=== PATIENT | male | born 1935 ===

== ENCOUNTER 2018-08-11 13:46 | Inpatient (IN) | payer MEDICARE ==
[~2018-08-11] VITALS: Ht 157.5 cm; Wt 80.8 kg
[2018-08-11 18:15] VITALS: BP 173/106
[2018-08-11] MEDS ORDERED: ACETAMINOPHEN 325 MG TABLET PO PRN (18:30)
[2018-08-11] MEDS ORDERED: MAG HYDROX/AL HYDROX/SIMETH 30 ML ORAL.SUSP PO PRN (18:30)
[2018-08-11] MEDS ORDERED: METHYL SALICYLATE/MENTHOL TOPICAL OINTMENT 29GM TUBE. TP PRN (18:30)
[2018-08-11] MEDS ORDERED: MAGNESIUM HYDROXIDE 2,400 MG/30 ML ORAL.SUSP. PO PRN (18:30)
--- NOTE | 2018-08-11 18:45 | NUR ---
Admission Note with Justification for Admission to [facility] Patient admitted to [facility] for protective oversight for emergency stabilization of acute psychiatric crisis. Pt admitted from: [facility] where he had been hospitalized for acute respiratory distress. Mode of arrival: Secure Transport Accompanied By: [facility] Staff, XIN Tucker and CAMILLE Vargas who went down and got patietn out of car and accompanied patient to unit. Precipitating behaviors that initiated intake and admission: Patient has had recent behavioral changes, was hospitalized at [facility] for acute respiratory distress. He has recently been combative, agitated and has had increased confusion. His brother has recently . Description of failure of out patient attempts at stabilization in previous setting list behavior and medication trials: Hospitalized and they gave him PRN ativan IM. Behaviors and assessment findings upon admission: Patient is very sedated upon arrival. Unable to sit upright in wheelchair. Staff down to parking lot to retrieve patient from secure transport vehicle. Patient not oriented, drowsy and fell asleep. His vital signs were high upon arrival and rechecked 30 minutes later, they remained high. He has extensive bruising to both forearms. Areas photographed. Lung sounds are wheezy, coarse. He has dried secretions under nose and drool around mouth. It was reported that he had been given PRN ativan 0.5mg IM at [facility] in preparation for trip. Belongings inventoried, photographs taken. Patient wears glasses and has a cochlear implant. Skin is good except for bruising previously described and yeasty area in his right groin area. Patient laying down in bed, side rails up, bed alarm on and head elevated. Dinner tray is in warmer cart, it was reported that he hadn't eaten since lunch. Plan: Admit for protective oversight for adjustment and stabilization of medications, behaviors and mood. Intense treatment regimen including groups, medication adjustments, therapy, consistent regimen for ADL's, self care, and sleep hygiene. Daily monitoring by Inpatient staff, Psychiatry, and Medical Physician. Addendum: 08/12/18 at 0812 by LOI HAWK RN Correction: patient was given PRN Ativan 1mg IM at [facility] prior to transport.
[2018-08-11 19:00] VITALS: BP 165/113
[2018-08-11] MEDS ORDERED: TRAM50TA PO (19:54)
[2018-08-11] MEDS ORDERED: SIMV20TA3 PO (19:54)
[2018-08-11] MEDS ORDERED: NYST15CR TP (19:54)
[2018-08-11] MEDS ORDERED: FURO20TA3 PO (19:54)
[2018-08-11] MEDS ORDERED: LEVO200T5 PO (19:54)
[2018-08-11] MEDS ORDERED: ALBU2.5V5 NEB (19:54)
[2018-08-11] MEDS ORDERED: METH2.5T PO (19:54)
[2018-08-11] MEDS ORDERED: PRED20TA PO (19:54)
[2018-08-11] MEDS ORDERED: METO50TA6 PO (19:54)
[2018-08-11] MEDS ORDERED: LOSA50TA7 PO (19:54)
[2018-08-11] MEDS ORDERED: UMEC62.5 IH (19:54)
[2018-08-11] MEDS ORDERED: ARFO15VI IH (19:54)
[2018-08-11] MEDS ORDERED: PRED-220 PO (19:54)
[2018-08-11] MEDS ORDERED: ALBU18HF IH (19:54)
[2018-08-11] MEDS ORDERED: HYDR25TA9 PO (19:54)
[2018-08-11] MEDS ORDERED: OXYB5TAB7 PO (19:54)
[2018-08-11] MEDS ORDERED: traMADol 50 MG TABLET PO PRN (20:00)
[2018-08-11 20:52] LABS: BASO # 0.1 x10^3/uL (0.0-0.2); BASO % 1 % (0-3); EOS % 0 % (0-3); HEMATOCRIT 42.9 % (36.0-47.0); HEMOGLOBIN 14.3 g/dL (12.0-15.5); LYMPH # 0.7 x10^3/uL (1.0-4.8); LYMPH % 6 % (24-48); MEAN CORPUSCULAR HEMOGLOBIN 31 pg (25-35); MEAN CORPUSCULAR HGB CONC 33 g/dL (31-37); MEAN CORPUSCULAR VOLUME 92 fL (79-100); MONO # 0.6 x10^3/uL (0.0-1.1); MONO % 6 % (0-9); NEUT # 9.4 x10^3uL (1.8-7.7); NEUT % 87 % (31-73); PLATELET COUNT 285 x10^3/uL (140-400); RED BLOOD COUNT 4.68 x10^6/uL (3.50-5.40); WHITE BLOOD COUNT 10.9 x10^3/uL (4.0-11.0)
[2018-08-11] MEDS: LOSARTAN 50 MG TABLET. PO SCH (20:52)
[2018-08-11] MEDS: METOPROLOL TART IMMED RELEASE 50 MG TABLET PO SCH (20:52)
[2018-08-11] MEDS: SIMVASTATIN 20 MG TABLET PO SCH (20:52)
[2018-08-11] MEDS ORDERED: NON FORMULARY ITEM (Arformoterol Tartrate (Brovana) 15 MCG) IH SCH (21:00)
[2018-08-11 21:05] LABS: ALBUMIN/GLOBULIN RATIO 0.7 (1.0-1.7); CALCIUM 9.1 mg/dL (8.5-10.1); CREATININE 1.4 mg/dL (0.6-1.0); MAGNESIUM 2.1 mg/dL (1.8-2.4); POTASSIUM 4.2 mmol/L (3.5-5.1); TOTAL BILIRUBIN 0.6 mg/dL (0.2-1.0); TOTAL PROTEIN 7.4 g/dL (6.4-8.2)
--- NOTE | 2018-08-11 21:24 | PDOC ---
Exam Note: Cr Note: Late entry for DOS 08/10/2018. Please also refer to the separate dictated note~ for this date of service dictated separately.~Patient seen individually. Discussed the patient with Nursing staff reviewed the chart.~Reviewed interim history and current functioning. Reviewed vital signs,~Labs/ Radiology~and current medications noted below. Continue current treatment with the changes noted in the dictated addendum note Assessment: Vital Signs: VS - Last 72 Hours, by Label Date Time Temp Pulse Resp B/P (MAP) Pulse Ox O2 Delivery O2 Flow Rate FiO2 08/11/18 20:52 116 165/113 08/11/18 20:52 116 165/113 08/11/18 19:00 98.3 116 16 165/113 (130) 94 Room Air 08/11/18 18:15 98.3 100 16 173/106 (128) 91 Room Air Vital Signs Date Time Temp Pulse Resp B/P (MAP) Pulse Ox O2 Delivery O2 Flow Rate FiO2 08/11/18 20:52 116 165/113 08/11/18 19:00 98.3 16 94 Room Air Labs: Laboratory Tests Test 08/11/18 20:40 White Blood Count 10.9 x10^3/uL (4.0-11.0) Red Blood Count 4.68 x10^6/uL (3.50-5.40) Hemoglobin 14.3 g/dL (12.0-15.5) Hematocrit 42.9 % (36.0-47.0) Mean Corpuscular Volume 92 fL (79-100) Mean Corpuscular Hemoglobin 31 pg (25-35) Mean Corpuscular Hemoglobin Concent 33 g/dL (31-37) Red Cell Distribution Width 15.0 % (11.5-14.5) H Platelet Count 285 x10^3/uL (140-400) Neutrophils (%) (Auto) 87 % (31-73) H Lymphocytes (%) (Auto) 6 % (24-48) L Monocytes (%) (Auto) 6 % (0-9) Eosinophils (%) (Auto) 0 % (0-3) Basophils (%) (Auto) 1 % (0-3) Neutrophils # (Auto) 9.4 x10^3uL (1.8-7.7) H Lymphocytes # (Auto) 0.7 x10^3/uL (1.0-4.8) L Monocytes # (Auto) 0.6 x10^3/uL (0.0-1.1) Eosinophils # (Auto) 0.0 x10^3/uL (0.0-0.7) Basophils # (Auto) 0.1 x10^3/uL (0.0-0.2) Sodium Level 140 mmol/L (136-145) Potassium Level 4.2 mmol/L (3.5-5.1) Chloride Level 99 mmol/L (98-107) Carbon Dioxide Level 34 mmol/L (21-32) H Anion Gap 7 (6-14) Blood Urea Nitrogen 20 mg/dL (7-20) Creatinine 1.4 mg/dL (0.6-1.0) H Estimated GFR (Cockcroft-Gault) 36.0 BUN/Creatinine Ratio 14 (6-20) Glucose Level 117 mg/dL (70-99) H Calcium Level 9.1 mg/dL (8.5-10.1) Magnesium Level 2.1 mg/dL (1.8-2.4) Total Bilirubin 0.6 mg/dL (0.2-1.0) Aspartate Amino Transferase (AST) 34 U/L (15-37) Alanine Aminotransferase (ALT) 84 U/L (14-59) H Alkaline Phosphatase 66 U/L (46-116) Total Protein 7.4 g/dL (6.4-8.2) Albumin 3.0 g/dL (3.4-5.0) L Albumin/Globulin Ratio 0.7 (1.0-1.7) L Current Medications: Meds: Current Medications Acetaminophen (Tylenol) 650 mg PRN Q6HRS PRN PO PAIN / TEMP; Start 08/11/18 at 18:30 Multi-Ingredient Ointment (Analgesic [place]) 1 jonathan PRN QID PRN TP MUSCLE PAIN; Start 08/11/18 at 18:30 Al Hydroxide/Mg Hydroxide (Mylanta Plus Xs) 15 ml PRN AFTMEALHC PRN PO DYSPEPSIA; Start 08/11/18 at 18:30 Magnesium Hydroxide (Milk Of Magnesia) 2,400 mg PRN QHS PRN PO CONSTIPATION; Start 08/11/18 at 18:30 Olanzapine (ZyPREXA ZYDIS) 2.5 mg PRN Q2HR PRN PO PSYCHOSIS; Start 08/11/18 at 18:45 Tramadol HCl (Ultram) 50 mg PRN BID PRN PO PAIN; Start 08/11/18 at 20:00 Albuterol Sulfate (Ventolin) 2.5 mg QID NEB ; Start 08/11/18 at 21:00 Furosemide (Lasix) 20 mg DAILY PO ; Start 08/12/18 at 09:00 Hydrochlorothiazide (Hydrodiuril) 25 mg DAILY PO ; Start 08/12/18 at 09:00 Losartan Potassium (Cozaar) 50 mg BID PO Last administered on 08/11/18at 20:52 ; Start 08/11/18 at 21:00 Prednisone (Prednisone) 25 mg DAILY PO ; Start 08/12/18 at 09:00 Prednisone (Prednisone) 20 mg DAILY PO ; Start 08/12/18 at 09:00; Stop at 09:00; Status DC Non-Formulary Medication (Arformoterol Tartrate (Brovana)) 15 mcg BID IH ; Start 08/11/18 at 21:00; Stop 08/11/18 at 21:00; Status DC Levothyroxine Sodium (Synthroid) 200 mcg DAILY06 PO ; Start 08/12/18 at 06:00 Methotrexate (Rheumatrex) 12.5 mg WEEKLY PO ; Start 08/18/18 at 09:00 Metoprolol Tartrate (Lopressor) 50 mg BID PO Last administered on 08/11/18at 20 :52; Start 08/11/18 at 21:00 Simvastatin (Zocor) 20 mg HS PO Last administered on 08/11/18at 20:52; Start 08/11/18 at 21:00 Active Scripts Active Reported Ventolin Hfa Inhaler (Albuterol Sulfate) 18 Gm Hfa.aer.ad 1 Puff IH Tramadol Hcl (Tramadol HCl) 50 Mg Tablet 50 Mg PO BID PRN Simvastatin 20 Mg Tablet 20 Mg PO HS Prednisone 20 Mg Tablet 20 Mg PO DAILY Prednisone 10 Mg Tablet 5 Mg PO DAILY Oxybutynin Chloride 5 Mg Tablet 5 Mg PO Nystatin 15 Gm Cream..g. 1 Applic TP PRN Metoprolol Tartrate 50 Mg Tablet 50 Mg PO BID Methotrexate (Methotrexate Sodium) 2.5 Mg Tablet 12.5 Mg PO WEEKLY Losartan Potassium 50 Mg Tablet 50 Mg PO BID Levothyroxine Sodium 200 Mcg Tablet 200 Mcg PO DAILYAC Incruse Ellipta (Umeclidinium [place]) 62.5 Mcg Blst.w.dev 62.5 Mcg IH Hydrochlorothiazide Tablet (Hydrochlorothiazide) 25 Mg Tablet 25 Mg PO DAILY Furosemide 20 Mg Tablet 20 Mg PO DAILY Brovana (Arformoterol Tartrate) 15 Mcg/2 Ml Vial.neb 15 Mcg IH BID Albuterol Sulfate Neb Soln (Albuterol Sulfate) 2.5 Mg/3 Ml Vial.neb 2.5 Mg NEB TID I have reviewed the current psychotropics carefully including drug interactions. Risk benefit ratio favors no change other than as noted in my dictated progress note. Diagnosis: Problems: (1) MDD (major depressive disorder) LAURA HOLGUIN MD Aug 11, 2018 21:24
--- NOTE | 2018-08-11 22:44 | NUR ---
Nursing note: Assumed care of pt in his room, He was a new admit just arriving before shift change. Pt is sedated as he received IM ativan before transport. He was resistive when attempting to get vitals but he was weak. No s/s of pain.
[2018-08-11] MEDS: ALBUTEROL SULFATE 2.5 MG/3 ML NEBU. NEB SCH (22:50)
--- NOTE | 2018-08-11 23:32 | PDOC ---
Exam Note: Cr Note: Please also refer to the separate dictated note~for this date of service dictated separately.~Patient seen individually. Discussed the patient with Nursing staff reviewed the chart.~Reviewed interim history and current functioning. Reviewed vital signs,~Labs/ Radiology~and current medications noted below. Continue current treatment with the changes noted in the dictated addendum note Assessment: Vital Signs: Vital Signs Date Time Temp Pulse Resp B/P (MAP) Pulse Ox O2 Delivery O2 Flow Rate FiO2 08/11/18 22:30 95 Nasal Cannula 2.0 08/11/18 20:52 116 165/113 08/11/18 19:00 98.3 16 Labs: Laboratory Tests Test 08/11/18 20:40 White Blood Count 10.9 x10^3/uL (4.0-11.0) Red Blood Count 4.68 x10^6/uL (3.50-5.40) Hemoglobin 14.3 g/dL (12.0-15.5) Hematocrit 42.9 % (36.0-47.0) Mean Corpuscular Volume 92 fL (79-100) Mean Corpuscular Hemoglobin 31 pg (25-35) Mean Corpuscular Hemoglobin Concent 33 g/dL (31-37) Red Cell Distribution Width 15.0 % (11.5-14.5) H Platelet Count 285 x10^3/uL (140-400) Neutrophils (%) (Auto) 87 % (31-73) H Lymphocytes (%) (Auto) 6 % (24-48) L Monocytes (%) (Auto) 6 % (0-9) Eosinophils (%) (Auto) 0 % (0-3) Basophils (%) (Auto) 1 % (0-3) Neutrophils # (Auto) 9.4 x10^3uL (1.8-7.7) H Lymphocytes # (Auto) 0.7 x10^3/uL (1.0-4.8) L Monocytes # (Auto) 0.6 x10^3/uL (0.0-1.1) Eosinophils # (Auto) 0.0 x10^3/uL (0.0-0.7) Basophils # (Auto) 0.1 x10^3/uL (0.0-0.2) Sodium Level 140 mmol/L (136-145) Potassium Level 4.2 mmol/L (3.5-5.1) Chloride Level 99 mmol/L (98-107) Carbon Dioxide Level 34 mmol/L (21-32) H Anion Gap 7 (6-14) Blood Urea Nitrogen 20 mg/dL (7-20) Creatinine 1.4 mg/dL (0.6-1.0) H Estimated GFR (Cockcroft-Gault) 36.0 BUN/Creatinine Ratio 14 (6-20) Glucose Level 117 mg/dL (70-99) H Calcium Level 9.1 mg/dL (8.5-10.1) Magnesium Level 2.1 mg/dL (1.8-2.4) Total Bilirubin 0.6 mg/dL (0.2-1.0) Aspartate Amino Transferase (AST) 34 U/L (15-37) Alanine Aminotransferase (ALT) 84 U/L (14-59) H Alkaline Phosphatase 66 U/L (46-116) Total Protein 7.4 g/dL (6.4-8.2) Albumin 3.0 g/dL (3.4-5.0) L Albumin/Globulin Ratio 0.7 (1.0-1.7) L Current Medications: Meds: Current Medications Acetaminophen (Tylenol) 650 mg PRN Q6HRS PRN PO PAIN / TEMP; Start 08/11/18 at 18:30 Multi-Ingredient Ointment (Analgesic [place]) 1 jonathan PRN QID PRN TP MUSCLE PAIN; Start 08/11/18 at 18:30 Al Hydroxide/Mg Hydroxide (Mylanta Plus Xs) 15 ml PRN AFTMEALHC PRN PO DYSPEPSIA; Start 08/11/18 at 18:30 Magnesium Hydroxide (Milk Of Magnesia) 2,400 mg PRN QHS PRN PO CONSTIPATION; Start 08/11/18 at 18:30 Olanzapine (ZyPREXA ZYDIS) 2.5 mg PRN Q2HR PRN PO PSYCHOSIS; Start 08/11/18 at 18:45 Tramadol HCl (Ultram) 50 mg PRN BID PRN PO PAIN; Start 08/11/18 at 20:00 Albuterol Sulfate (Ventolin) 2.5 mg QID NEB Last administered on 08/11/18at 22: 50; Start 08/11/18 at 21:00 Furosemide (Lasix) 20 mg DAILY PO ; Start 08/12/18 at 09:00 Hydrochlorothiazide (Hydrodiuril) 25 mg DAILY PO ; Start 08/12/18 at 09:00 Losartan Potassium (Cozaar) 50 mg BID PO Last administered on 08/11/18at 20:52 ; Start 08/11/18 at 21:00 Prednisone (Prednisone) 25 mg DAILY PO ; Start 08/12/18 at 09:00 Prednisone (Prednisone) 20 mg DAILY PO ; Start 08/12/18 at 09:00; Stop at 09:00; Status DC Non-Formulary Medication (Arformoterol Tartrate (Brovana)) 15 mcg BID IH ; Start 08/11/18 at 21:00; Stop 08/11/18 at 21:00; Status DC Levothyroxine Sodium (Synthroid) 200 mcg DAILY06 PO ; Start 08/12/18 at 06:00 Methotrexate (Rheumatrex) 12.5 mg WEEKLY PO ; Start 08/18/18 at 09:00 Metoprolol Tartrate (Lopressor) 50 mg BID PO Last administered on 08/11/18at 20 :52; Start 08/11/18 at 21:00 Simvastatin (Zocor) 20 mg HS PO Last administered on 08/11/18at 20:52; Start 08/11/18 at 21:00 Active Scripts Active Reported Ventolin Hfa Inhaler (Albuterol Sulfate) 18 Gm Hfa.aer.ad 1 Puff IH Tramadol Hcl (Tramadol HCl) 50 Mg Tablet 50 Mg PO BID PRN Simvastatin 20 Mg Tablet 20 Mg PO HS Prednisone 20 Mg Tablet 20 Mg PO DAILY Prednisone 10 Mg Tablet 5 Mg PO DAILY Oxybutynin Chloride 5 Mg Tablet 5 Mg PO Nystatin 15 Gm Cream..g. 1 Applic TP PRN Metoprolol Tartrate 50 Mg Tablet 50 Mg PO BID Methotrexate (Methotrexate Sodium) 2.5 Mg Tablet 12.5 Mg PO WEEKLY Losartan Potassium 50 Mg Tablet 50 Mg PO BID Levothyroxine Sodium 200 Mcg Tablet 200 Mcg PO DAILYAC Incruse Ellipta (Umeclidinium [place]) 62.5 Mcg Blst.w.dev 62.5 Mcg IH Hydrochlorothiazide Tablet (Hydrochlorothiazide) 25 Mg Tablet 25 Mg PO DAILY Furosemide 20 Mg Tablet 20 Mg PO DAILY Brovana (Arformoterol Tartrate) 15 Mcg/2 Ml Vial.neb 15 Mcg IH BID Albuterol Sulfate Neb Soln (Albuterol Sulfate) 2.5 Mg/3 Ml Vial.neb 2.5 Mg NEB TID I have reviewed the current psychotropics carefully including drug interactions. Risk benefit ratio favors no change other than as noted in my dictated progress note. Diagnosis: Problems: (1) MDD (major depressive disorder) LAURA HOLGUIN MD Aug 11, 2018 23:32
[2018-08-12] MEDS: ALBUTEROL SULFATE 2.5 MG/3 ML NEBU. NEB SCH ×4 (05:00→20:31)
[2018-08-12] MEDS: LEVOTHYROXINE 100 MCG TABLET PO SCH (06:01)
[2018-08-12 06:22] VITALS: BP 138/87
[2018-08-12] MEDS: predniSONE 10 MG TABLET PO SCH (08:19)
[2018-08-12] MEDS: LOSARTAN 50 MG TABLET. PO SCH ×2 (08:19→19:50)
[2018-08-12] MEDS: hydroCHLOROthiazide 25 MG TABLET PO SCH (08:20)
[2018-08-12] MEDS: METOPROLOL TART IMMED RELEASE 50 MG TABLET PO SCH ×2 (08:20→19:51)
[2018-08-12] MEDS: FUROSEMIDE 20 MG TABLET PO SCH (08:20)
[2018-08-12] MEDS ORDERED: predniSONE 20 MG TABLET PO SCH (09:00)
--- NOTE | 2018-08-12 10:48 | NUR ---
Behavior Intervention Response and Plan: BIRP Note: Behavior: Assumed Care of patient, patient located in Dining Room at shift change. Patient exhibited the following behavior Calm, Interactive, Disorganized. Brief assessment on rounds of vital signs, medication needs, lab studies, and pain. Treatment plan problems 1, 2 and 3. Intervention: Patient assessed and the following interventions initiated safety checks 15 Minute Checks Cognitive Assessment , Head to toe Assessment , Medications. Response: After interactions and interventions patient responded in the following manner, Disorganized , Withdrawn ,Calm. Continue to assess behaviors and condition will continue to monitor throughout the shift as needed. Patient educated on ADL's, and hand hygiene. Plan: Continue to monitor Master Treatment Plan for patient's progress toward short term goals of Decreased Agitation, Decreased Aggression, custodial goals to return to previous living setting vs placement. Continue to assess patient for changes in above assessment. Monitor for medication needs, pain, and safety concerns. Hourly rounding performed to ensure safe environment.
--- NOTE | 2018-08-12 12:01 | HP ---
ADMIT DATE: 08/11/2018 PSYCHIATRIC ADMISSION HISTORY/EVALUATION This late entry, date of service 08/11/2018 covers elements not covered in my initial note. I met with the patient evening of 08/11/2018 shortly after he arrived on the unit from [facility] referred by Dr. Strauss, his primary care physician on account of increased agitation, confusion, being combative at times of care. He has been increasingly depressed following the recent of his brother. He had been hospitalized at [facility], medically stabilized. Behaviors were unmanageable due to the agitation and confusion. In fact, they had to give him 1 mg of Ativan IM before he left the to be transferred to us for inpatient psychiatric stabilization. 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 CHIEF COMPLAINT: "No." The patient is quite sedated, not able to complete coherent conversation and part of this assessment will have to be completed once the Ativan dissipates. HISTORY OF PRESENT ILLNESS: The patient reportedly was admitted to [facility] with acute respiratory distress and increasing confusion and agitation. While at the despite medical stabilization, he was extremely agitated, disruptive. He does have a cochlear implant in the right and part of his hearing problems were impacting his behaviors as well. No clear history of bipolar disorder, suicidal or homicidal ideation, but he appeared somewhat psychotic, in addition to his worsening confusion. PAST PSYCHIATRIC HISTORY: As above. MEDICAL HISTORY: Positive for acute respiratory distress, hypothyroidism, sarcoidosis, hyperlipidemia, hypertension, status post ____cochlear device on the right, right hip replacement, right knee replacement, hernia surgery, bronchoscopy 07/2010, recent fall of 06/2018, bruise to the top of the head. DIET: Cardiac, regular texture. Medications whole. Ambulates up ad rajan. UA 08/11/2018 at [facility] was negative. CODE STATUS: Full code. ALLERGIES: TETANUS TOXOID, PENICILLIN, ERYTHROMYCIN, LATEX. ACCU-CHEKS: None. FAMILY HISTORY: Noncontributory. 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 No alcohol or drug abuse, physical, sexual or elder abuse history is noted. Not known to be a perpetrator. REACTION TO HOSPITALIZATION: The patient oblivious of this assets, supportive who is his DPOA and help facilitate this hospitalization. MENTAL STATUS EXAM: The patient was seen shortly after he arrived on the unit evening of 08/11/2018. He is quite sedated, oriented just to himself, often verbal responses monosyllabic. Insight, judgment, recent and remote memory, attention, concentration, fund of knowledge poor, consistent with his diagnosis. Attention span is short. Language function difficult to assess, but grossly intact. LABORATORY DATA: Reviewed. 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 Rest as above. PLAN: Admit to geropsychiatry unit at [facility]. I will see the patient daily individually from a psychiatric standpoint, medical followup per Dr. Chaudhary/Dr. Fox. The patient is currently on Zyprexa p.r.n., which we initiated after he came on the unit and we will maintain this for now. Consider adding Zoloft as an antidepressant. ESTIMATED LENGTH OF STAY: 7-10 days. DISPOSITION PLANS: Perhaps back home or if needing skilled care at a facility closer to his home. MAN Jason HOLGUIN MD DR: JENI/laina JOB#: [id number] / [id number]
--- NOTE | 2018-08-12 13:00 | NUR ---
Patient intentionally sliding out of wheelchair. Redirection failed and seemed only to anger patient. Placed pt in quiet room on mats, he tried to pull up on wc and almost knocked it over on himself. Pt seated in Broda chair with blanket, feet elevated, he then fell asleep and slept most of the afternoon. Patient was compliant with medications this morning.
--- NOTE | 2018-08-12 13:57 | EKG ---
[address] [address] Test Date: 2018-08-12 Test Time: 04:27:07 Pat Name: MADI GARCIA Department: Room: [facility] 1 Gender: Compound Finisher: : 1935 Requested By: LAURA HOLGUIN Order Number: [id number] Reading MD: Nish Lucio MD Measurements Intervals [place] Rate: P: CO: QRS: QRSD: T: QT: QTc: Interpretive Statements ATRIAL FIBRILLATION LAD Electronically Signed On 08-16-2018 10:53:20 CDT by Nish Lucio MD
--- NOTE | 2018-08-12 14:44 | NUR ---
WEEKLY UPDATE: Pt was admitted to the unit last. Pt is agitated and has receive Zyprexa Zydis twice now while on the unit. Pt also has elevated blood pressure readings. SW will have to complete pt PSA and will contact his family for information.
[2018-08-12 15:03] LABS: THYROID STIM HORMONE (TSH) 7.308 uIU/mL (0.358-3.740)
[2018-08-12 16:16] VITALS: BP 98/58
--- NOTE | 2018-08-12 17:10 | NUR ---
Daughter Lois Lobo called, she asked to be involved in treatment team on . cell#[phone]. She stated she is DPOA, and gave a brief history. Patient worked at [employer] until about 7 years ago. 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 She stated that about 3 weeks ago he fell "up" the stairs. He was still okay after that, these mental status changes happened right before he went to [facility]. March 2018 patient experienced a major loss in the of his brother. They were very close, talked daily. Pt took it very hard according to the DPOA. The brother was the last living family member on his side of the family.
--- NOTE | 2018-08-12 17:30 | NUR ---
Psychosocial Assessment Admit Date: 08/11/18 Psychiatrist: Feliciano Medical Physician: Dr. Chapa Assessment Informants: Pt dtr, Lois Sex of Patient: Male Race: Age: 83 Living Situation: Lives with Plans For Return: Unknown; may have pt go to half-way in [place] for a while Legal status: has DPOA Name of Legally Responsible Person: dtr and son: [place] Contacts: Name: Lois Lobo [phone] Name: Kris Stein Name: Dot Stein Family Background and Relationships Marital status: to Dot Stein Marital (Cohabitation)/Sexual Orientation: Heterosexual Family support And their Participation in therapy: Family wishes to participate in tx team and will help in deciding placement based on recommendations Personal Background Education History: 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 Pt is the last living relative of his family. Pt mother when pt was 12 yr. old to Breast Cx, his father, who was a rose, roughly 40 years ago. Pt sister was in the and in the early 80's. Pt brother who was 5 yrs older just a few months ago. 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 Cultural/Spiritual History Factors that may impact treatment: None History of Sexual/Physical Abuse of Neglect: None noted History of Substance Abuse: None noted Psychiatric History: None; first admission to [facility] Presenting Problems Presenting Problems/Criteria for admission: combative with cares, agitated Patient's Current Intrinsic Strengths: vocal, physically up ad rajan Patient's Current Intrinsic Weaknesses: decrease in cognition, increase in aggression, poor financial outcome Social Work Treatment Plan Identified Problems 1.) aggression 2.) potential grief d/t loss of brother 3.) caregiver for Goals for Treatment: Behavior modifications and medication changes Family Goals for Treatment: behavioral modifications Social work Intervention: Group therapy per week:2-5x To increase positive, calm feelings. To Increase Socialization. To Teach and Practice Effective coping skills in a social setting. Individual Therapy Per Week: As needed. Using validation to increase calm and positive feelings. To encourage self-expression. To work on grief/loss and adjustment issues. To teach and practice effective coping skills. To educate about diagnoses, team recommendations etc.. Family Support and Education: As needed. Support family grief/adjustment process. Educate about Psychiatric/Behavioral problems and treatment recommendations. Patient's Educational Needs to be addressed in Treatment: Diagnosis, Treatment plan, Medication and Discharge Planning. Initial Discharge Plan: Plans to discuss pt in tx team on re: medications, goals and ELOS Plan for communication of Psychiatric Follow up and Continuing Care Instructions to family and Care Givers: Written and verbal communication. Conclusions and Recommendations: SW received a call from Lois, pt dtr who reports that she and her brother are the DPOA. DARIO requested that pt dtr fax that paperwork over so that we may have it on record. According to the hospital report, the DPOA is noted as pt . Pt dtr reports that pt takes care of his and to have a break, arranged it to where he could do yardwork for a neighbor. Pt dtr mentioned the possibilty of pt being able to discharge to a facility in [place], but would like the team recommendation if possible. Pt is working to get Medicaid for services, which would allow pt to not be so dependent on him. Pt dtr would like to participate in team, as well as her brother. DARIO will continue to work with pt family and plan for pt discharge within the next few weeks. Addendum: 08/19/18 at 1800 by DAVID BISHOP Correction on HX of Substance Abuse: None noted in the last 12 months.
[2018-08-12 18:09] LABS: THYROXINE 4.1 ug/dL (4.5-12.0)
--- NOTE | 2018-08-12 18:31 | NUR ---
Dr. Fox advised this nurse that pt has new onset A FIB. He ordered Troponin and Cardiology Consult. If Troponin level comes back elevated, page Dr. Dominique murrieta.
--- NOTE | 2018-08-12 18:47 | PDOC2 ---
CONSULT Date of Admission DATE: 08/11/18 Reason for Consult: Medical Management Referring Physician: Dr Driver Source: Caregiver, Chart review, Patient History of Present Illness: Patient is an 83-year-old male directly admitted to the [facility] unit from [facility] for increased agitation, confusion , and aggressive behavior. Records indicate that he has been increasingly depressed following the recent of his brother. He had been hospitalized at [facility] on August 06 and found to be in acute respiratory distress on chronic respiratory failure without hypoxia likely secondary to his sarcoidosis. Respiratory symptoms improved with treatments, there was also report of a fall last month in which he hit his head details surrounding the fall are not immediately available. I did review a CT of the brain without contrast performed on August 11 at [facility] which revealed no acute hemorrhage or calvarial fracture only chronic age- related changes and sphenoid sinusitis. Patient ultimately was medically cleared for [facility] admission and just prior to transport became combative requiring 1 mg of Ativan. 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 I find the patient in the activity room in a Broda chair apparently sleeping. He arouses to verbal stimuli although does not answer questions. He does mumble in reply to me unintelligibly and is in no apparent distress. Cardiovascular: HTN, hyperipidemia Pulmonary: COPD, Other (sarcoidosis with chronic respiratory failure, obstructive sleep apnea) ENT: Sinusitis, Other (cochlear implant) Endocrine: Hypothyroidism Past Surgical History: Other (cochlear implant herniorrhaphy right sided total hip and total knee replacements) Smoke: No ALCOHOL: none Drugs: None Lives: with Family Current Medications Current Medications Acetaminophen (Tylenol) 650 mg PRN Q6HRS PRN PO PAIN / TEMP; Start 08/11/18 at 18:30 Multi-Ingredient Ointment (Analgesic [place]) 1 jonathan PRN QID PRN TP MUSCLE PAIN; Start 08/11/18 at 18:30 Al Hydroxide/Mg Hydroxide (Mylanta Plus Xs) 15 ml PRN AFTMEALHC PRN PO DYSPEPSIA; Start 08/11/18 at 18:30 Magnesium Hydroxide (Milk Of Magnesia) 2,400 mg PRN QHS PRN PO CONSTIPATION; Start 08/11/18 at 18:30 Olanzapine (ZyPREXA ZYDIS) 2.5 mg PRN Q2HR PRN PO PSYCHOSIS Last administered on 08/12/18at 00:55; Start 08/11/18 at 18:45 Tramadol HCl (Ultram) 50 mg PRN BID PRN PO PAIN; Start 08/11/18 at 20:00 Albuterol Sulfate (Ventolin) 2.5 mg QID NEB Last administered on 08/12/18at 16: 15; Start 08/11/18 at 21:00 Furosemide (Lasix) 20 mg DAILY PO Last administered on 08/12/18at 08:20; Start 08/12/18 at 09:00 Hydrochlorothiazide (Hydrodiuril) 25 mg DAILY PO Last administered on at 08:20; Start 08/12/18 at 09:00 Losartan Potassium (Cozaar) 50 mg BID PO Last administered on 08/12/18at 08:19 ; Start 08/11/18 at 21:00 Prednisone (Prednisone) 25 mg DAILY PO Last administered on 08/12/18at 08:19; Start 08/12/18 at 09:00 Prednisone (Prednisone) 20 mg DAILY PO ; Start 08/12/18 at 09:00; Stop at 09:00; Status DC Non-Formulary Medication (Arformoterol Tartrate (Brovana)) 15 mcg BID IH ; Start 08/11/18 at 21:00; Stop 08/11/18 at 21:00; Status DC Levothyroxine Sodium (Synthroid) 200 mcg DAILY06 PO Last administered on at 06:01; Start 08/12/18 at 06:00 Methotrexate (Rheumatrex) 12.5 mg WEEKLY PO ; Start 08/18/18 at 09:00 Metoprolol Tartrate (Lopressor) 50 mg BID PO Last administered on 08/12/18at 08 :20; Start 08/11/18 at 21:00 Simvastatin (Zocor) 20 mg HS PO Last administered on 08/11/18at 20:52; Start 08/11/18 at 21:00 Sertraline HCl (Zoloft) 50 mg DAILY PO ; Start 08/13/18 at 09:00 Active Scripts Active Reported Ventolin Hfa Inhaler (Albuterol Sulfate) 18 Gm Hfa.aer.ad 1 Puff IH Tramadol Hcl (Tramadol HCl) 50 Mg Tablet 50 Mg PO BID PRN Simvastatin 20 Mg Tablet 20 Mg PO HS Prednisone 20 Mg Tablet 20 Mg PO DAILY Prednisone 10 Mg Tablet 5 Mg PO DAILY Oxybutynin Chloride 5 Mg Tablet 5 Mg PO Nystatin 15 Gm Cream..g. 1 Applic TP PRN Metoprolol Tartrate 50 Mg Tablet 50 Mg PO BID Methotrexate (Methotrexate Sodium) 2.5 Mg Tablet 12.5 Mg PO WEEKLY Losartan Potassium 50 Mg Tablet 50 Mg PO BID Levothyroxine Sodium 200 Mcg Tablet 200 Mcg PO DAILYAC Incruse Ellipta (Umeclidinium [place]) 62.5 Mcg Blst.w.dev 62.5 Mcg IH Hydrochlorothiazide Tablet (Hydrochlorothiazide) 25 Mg Tablet 25 Mg PO DAILY Furosemide 20 Mg Tablet 20 Mg PO DAILY Brovana (Arformoterol Tartrate) 15 Mcg/2 Ml Vial.neb 15 Mcg IH BID Albuterol Sulfate Neb Soln (Albuterol Sulfate) 2.5 Mg/3 Ml Vial.neb 2.5 Mg NEB TID Allergies: Coded Allergies: Penicillins (Verified Allergy, Intermediate, 08/12/18) erythromycin base (Verified Allergy, Intermediate, 08/12/18) latex (Verified Allergy, Intermediate, 08/12/18) montelukast (Verified Allergy, Intermediate, 08/12/18) tetanus toxoid, adsorbed (Verified Allergy, Intermediate, 08/12/18) Review of Systems: Patient either unable or unwilling to answer questions, review of systems is per history of present illness Physical Exam: Gen.: Sleeping and Broda chair in the activity room rouses easily to verbal stimuli Neck: Supple, no lymphadenopathy, nontender Cardiovascular: Normal S1 and S2 no murmurs Pulmonary: Coarse breath sounds bilaterally with faint wheeze and fair to good air movement Abdomen: Soft nontender non-distended, bowel sounds present no masses Extremities: No clubbing, cyanosis or edema Neuro: Sleeping rouses easily moves all extremities spontaneously Skin: Warm, dry VITALS Vital Signs Date Time Temp Pulse Resp B/P (MAP) Pulse Ox O2 Delivery O2 Flow Rate FiO2 08/12/18 16:16 97 Nasal Cannula 2.0 08/12/18 16:16 97.5 67 18 98/58 (71) Labs Laboratory Tests Test 08/11/18 20:40 White Blood Count 10.9 x10^3/uL (4.0-11.0) Red Blood Count 4.68 x10^6/uL (3.50-5.40) Hemoglobin 14.3 g/dL (12.0-15.5) Hematocrit 42.9 % (36.0-47.0) Mean Corpuscular Volume 92 fL (79-100) Mean Corpuscular Hemoglobin 31 pg (25-35) Mean Corpuscular Hemoglobin Concent 33 g/dL (31-37) Red Cell Distribution Width 15.0 % (11.5-14.5) Platelet Count 285 x10^3/uL (140-400) Neutrophils (%) (Auto) 87 % (31-73) Lymphocytes (%) (Auto) 6 % (24-48) Monocytes (%) (Auto) 6 % (0-9) Eosinophils (%) (Auto) 0 % (0-3) Basophils (%) (Auto) 1 % (0-3) Neutrophils # (Auto) 9.4 x10^3uL (1.8-7.7) Lymphocytes # (Auto) 0.7 x10^3/uL (1.0-4.8) Monocytes # (Auto) 0.6 x10^3/uL (0.0-1.1) Eosinophils # (Auto) 0.0 x10^3/uL (0.0-0.7) Basophils # (Auto) 0.1 x10^3/uL (0.0-0.2) Sodium Level 140 mmol/L (136-145) Potassium Level 4.2 mmol/L (3.5-5.1) Chloride Level 99 mmol/L (98-107) Carbon Dioxide Level 34 mmol/L (21-32) Anion Gap 7 (6-14) Blood Urea Nitrogen 20 mg/dL (7-20) Creatinine 1.4 mg/dL (0.6-1.0) Estimated GFR (Cockcroft-Gault) 36.0 BUN/Creatinine Ratio 14 (6-20) Glucose Level 117 mg/dL (70-99) Calcium Level 9.1 mg/dL (8.5-10.1) Magnesium Level 2.1 mg/dL (1.8-2.4) Iron Level 31 ug/dL (50-170) Total Iron Binding Capacity 281 ug/dL (250-450) Iron Saturation 11 % (15-34) Total Bilirubin 0.6 mg/dL (0.2-1.0) Aspartate Amino Transf (AST/SGOT) 34 U/L (15-37) Alanine Aminotransferase (ALT/SGPT) 84 U/L (14-59) Alkaline Phosphatase 66 U/L (46-116) Total Protein 7.4 g/dL (6.4-8.2) Albumin 3.0 g/dL (3.4-5.0) Albumin/Globulin Ratio 0.7 (1.0-1.7) Triglycerides Level 112 mg/dL (0-150) Cholesterol Level 157 mg/dL (0-200) LDL Cholesterol, Calculated 85 mg/dL (0-100) VLDL Cholesterol, Calculated 22 mg/dL (0-40) Non-HDL Cholesterol Calculated 107 mg/dL (0-129) HDL Cholesterol 50 mg/dL (40-60) Cholesterol/HDL Ratio 3.0 Vitamin B12 Level 1240 pg/mL (247-911) 25-Hydroxy Vitamin D Total 27.6 ng/mL (30-100) Thyroid Stimulating Hormone (TSH) 7.308 uIU/mL (0.358-3.740) Treponema pallidum Antibody Nonreactive (Nonreactive) Images EKG: Atrial fibrillation at 96 bpm with left bundle branch block and PVC appears new onset no prior for comparison but no mention of arrhythmia in [facility] records. Assessment/Plan Major depressive disorder with psychotic features: Dr Driver Apparent new onset atrial fibrillation: Cardiology consultation, cardiac enzymes , renal dose xarelto 15mg/d (CrCl 46) (no bleed history, CT brain neg) Hypothyroidism with elevated TSH 7.308: Increase levothyroxine to 225mcg/d HTN and Renal insufficiency BUN 20, creatinine 1.4: Serum Cr 1.37-1.7 during recent admission on current meds, blood pressure is well controlled continue metoprolol as well as Lasix, losartan, and hydrochlorothiazide for now recheck chemistry in a.m. Moderate protein calorie malnutrition albumin 3.0 Mild vitamin D deficiency 27.6: Supplement Will continue to follow and offer treatments as indicated. Thank you, Dr Driver, for allowing me to participate in the care of your patient. BARBARA SILVA DO Aug 12, 2018 18:47
[2018-08-12 19:15] LABS: BACTERIA,URINE 0 /HPF (0-FEW); BILIRUBIN,URINE NEG (NEG); CLARITY,URINE CLEAR; COLOR,URINE AMBER; GLUCOSE,URINE NEG (NEG); NITRITE,URINE NEG (NEG); RBC,URINE RARE /HPF (0-2); SQUAMOUS EPITHELIAL CELL,UR OCC /LPF; UROBILINOGEN,URINE 0.2 mg/dL (0.2 mg/dL); WBC,URINE RARE /HPF (0-4)
[2018-08-12] MEDS: SIMVASTATIN 20 MG TABLET PO SCH (19:51)
[2018-08-12 21:12] LABS: HEMOGLOBIN A1C 6.2 % (4.8-5.6)
--- NOTE | 2018-08-12 22:22 | NUR ---
Nursing note: Assumed care of pt in his room. He was compliant w/ meds and assessment but restless. Pt had to be brought to day room to be watched more closely as he would not stay in his bed. He is alert to self. No c/o or s/s of pain.
--- NOTE | 2018-08-12 23:28 | PDOC ---
Exam Note: Cr Note: Please also refer to the separate dictated note~for this date of service dictated separately.~Patient seen individually. Discussed the patient with Nursing staff reviewed the chart.~Reviewed interim history and current functioning. Reviewed vital signs,~Labs/ Radiology~and current medications noted below. Continue current treatment with the changes noted in the dictated addendum note Assessment: Vital Signs: Vital Signs Date Time Temp Pulse Resp B/P (MAP) Pulse Ox O2 Delivery O2 Flow Rate FiO2 08/12/18 20:31 98 Nasal Cannula 2.0 08/12/18 19:51 67 98/58 08/12/18 16:16 97.5 18 I&O Intake and Output 08/12/18 07:00 Intake Total 0 ml Balance 0 ml Intake Oral 0 ml Labs: Laboratory Tests Test 08/12/18 18:33 08/12/18 19:40 Urine Collection Type Unknown Urine Color Shelli Urine Clarity Clear Urine pH 7.0 Urine Specific [place] 1.015 Urine Protein 100 mg/dl (NEG-TRACE) Urine Glucose (UA) Neg mg/dL (NEG) Urine Ketones (Stick) Neg mg/dL (NEG) Urine Blood Neg (NEG) Urine Nitrite Neg (NEG) Urine Bilirubin Neg (NEG) Urine Urobilinogen Dipstick 0.2 mg/dL (0.2 mg/dL) Urine Leukocyte Esterase Neg (NEG) Urine RBC Rare /HPF (0-2) Urine WBC Rare /HPF (0-4) Urine Squamous Epithelial Cells Occ /LPF Urine Transitional Epithelial Cells Occ /LPF Urine Bacteria 0 /HPF (0-FEW) Urine Mucus Slight /LPF Creatine Kinase 203 U/L (26-192) H Troponin I Quantitative 0.031 ng/mL (0-0.055) Current Medications: Meds: Current Medications Acetaminophen (Tylenol) 650 mg PRN Q6HRS PRN PO PAIN / TEMP; Start 08/11/18 at 18:30 Multi-Ingredient Ointment (Analgesic [place]) 1 jonathan PRN QID PRN TP MUSCLE PAIN; Start 08/11/18 at 18:30 Al Hydroxide/Mg Hydroxide (Mylanta Plus Xs) 15 ml PRN AFTMEALHC PRN PO DYSPEPSIA; Start 08/11/18 at 18:30 Magnesium Hydroxide (Milk Of Magnesia) 2,400 mg PRN QHS PRN PO CONSTIPATION; Start 08/11/18 at 18:30 Olanzapine (ZyPREXA ZYDIS) 2.5 mg PRN Q2HR PRN PO PSYCHOSIS Last administered on 08/12/18at 21:20; Start 08/11/18 at 18:45 Tramadol HCl (Ultram) 50 mg PRN BID PRN PO PAIN; Start 08/11/18 at 20:00 Albuterol Sulfate (Ventolin) 2.5 mg QID NEB Last administered on 08/12/18at 20: 31; Start 08/11/18 at 21:00 Furosemide (Lasix) 20 mg DAILY PO Last administered on 08/12/18at 08:20; Start 08/12/18 at 09:00 Hydrochlorothiazide (Hydrodiuril) 25 mg DAILY PO Last administered on at 08:20; Start 08/12/18 at 09:00 Losartan Potassium (Cozaar) 50 mg BID PO Last administered on 08/12/18at 08:19 ; Start 08/11/18 at 21:00 Prednisone (Prednisone) 25 mg DAILY PO Last administered on 08/12/18at 08:19; Start 08/12/18 at 09:00 Prednisone (Prednisone) 20 mg DAILY PO ; Start 08/12/18 at 09:00; Stop at 09:00; Status DC Non-Formulary Medication (Arformoterol Tartrate (Brovana)) 15 mcg BID IH ; Start 08/11/18 at 21:00; Stop 08/11/18 at 21:00; Status DC Levothyroxine Sodium (Synthroid) 200 mcg DAILY06 PO Last administered on at 06:01; Start 08/12/18 at 06:00 Methotrexate (Rheumatrex) 12.5 mg WEEKLY PO ; Start 08/18/18 at 09:00 Metoprolol Tartrate (Lopressor) 50 mg BID PO Last administered on 08/12/18at 19 :51; Start 08/11/18 at 21:00 Simvastatin (Zocor) 20 mg HS PO Last administered on 08/12/18at 19:51; Start 08/11/18 at 21:00 Sertraline HCl (Zoloft) 50 mg DAILY PO ; Start 08/13/18 at 09:00 Levothyroxine Sodium (Synthroid) 175 mcg DAILY06 PO ; Start 08/13/18 at 06:00 Levothyroxine Sodium (Synthroid) 50 mcg DAILY06 PO ; Start 08/13/18 at 06:00 Rivaroxaban (Xarelto) 15 mg DAILYWSUP PO ; Start 08/13/18 at 17:00 Vitamin D (Vitamin D3) 50,000 unit WEEKLY PO ; Start 08/19/18 at 09:00 Active Scripts Active Reported Ventolin Hfa Inhaler (Albuterol Sulfate) 18 Gm Hfa.aer.ad 1 Puff IH Tramadol Hcl (Tramadol HCl) 50 Mg Tablet 50 Mg PO BID PRN Simvastatin 20 Mg Tablet 20 Mg PO HS Prednisone 20 Mg Tablet 20 Mg PO DAILY Prednisone 10 Mg Tablet 5 Mg PO DAILY Oxybutynin Chloride 5 Mg Tablet 5 Mg PO Nystatin 15 Gm Cream..g. 1 Applic TP PRN Metoprolol Tartrate 50 Mg Tablet 50 Mg PO BID Methotrexate (Methotrexate Sodium) 2.5 Mg Tablet 12.5 Mg PO WEEKLY Losartan Potassium 50 Mg Tablet 50 Mg PO BID Levothyroxine Sodium 200 Mcg Tablet 200 Mcg PO DAILYAC Incruse Ellipta (Umeclidinium [place]) 62.5 Mcg Blst.w.dev 62.5 Mcg IH Hydrochlorothiazide Tablet (Hydrochlorothiazide) 25 Mg Tablet 25 Mg PO DAILY Furosemide 20 Mg Tablet 20 Mg PO DAILY Brovana (Arformoterol Tartrate) 15 Mcg/2 Ml Vial.neb 15 Mcg IH BID Albuterol Sulfate Neb Soln (Albuterol Sulfate) 2.5 Mg/3 Ml Vial.neb 2.5 Mg NEB TID I have reviewed the current psychotropics carefully including drug interactions. Risk benefit ratio favors no change other than as noted in my dictated progress note. Diagnosis: Problems: (1) MDD (major depressive disorder) (2) Anxiety disorder (3) Dementia, vascular, with depression (4) Impulse control disorder LAURA HOLGUIN MD Aug 12, 2018 23:28
[2018-08-13] MEDS: ALBUTEROL SULFATE 2.5 MG/3 ML NEBU. NEB SCH ×4 (05:20→20:10)
[2018-08-13 05:48] VITALS: BP 132/90
[2018-08-13] MEDS: LEVOTHYROXINE 100 MCG TABLET PO SCH (05:53)
[2018-08-13] MEDS: LEVOTHYROXINE 50 MCG TABLET PO SCH (05:53)
[2018-08-13] MEDS: LEVOTHYROXINE 175 MCG TABLET PO SCH (05:53)
[2018-08-13] MEDS: METOPROLOL TART IMMED RELEASE 50 MG TABLET PO SCH ×2 (07:41→20:08)
[2018-08-13] MEDS: hydroCHLOROthiazide 25 MG TABLET PO SCH (07:41)
[2018-08-13] MEDS: FUROSEMIDE 20 MG TABLET PO SCH (07:41)
[2018-08-13] MEDS: LOSARTAN 50 MG TABLET. PO SCH ×2 (07:41→20:08)
[2018-08-13] MEDS: predniSONE 10 MG TABLET PO SCH (07:42)
[2018-08-13] MEDS: SERTRALINE 50 MG TABLET. PO SCH (07:43)
[2018-08-13 08:27] LABS: BASO % 0 % (0-3); EOS # 0.1 x10^3/uL (0.0-0.7); EOS % 1 % (0-3); HEMATOCRIT 40.6 % (39.0-53.0); HEMOGLOBIN 13.4 g/dL (13.0-17.5); LYMPH # 1.3 x10^3/uL (1.0-4.8); LYMPH % 10 % (24-48); MEAN CORPUSCULAR HEMOGLOBIN 30 pg (25-35); MEAN CORPUSCULAR HGB CONC 33 g/dL (31-37); MEAN CORPUSCULAR VOLUME 92 fL (79-100); MONO # 0.9 x10^3/uL (0.0-1.1); MONO % 7 % (0-9); NEUT % 83 % (31-73); PLATELET COUNT 292 x10^3/uL (140-400); RED BLOOD COUNT 4.43 x10^6/uL (4.30-5.70); RED CELL DISTRIBUTION WIDTH 14.9 % (11.5-14.5); WHITE BLOOD COUNT 13.3 x10^3/uL (4.0-11.0)
[2018-08-13 08:30] LABS: CALCIUM 8.9 mg/dL (8.5-10.1); CREATININE 1.5 mg/dL (0.7-1.3); GFR 44.8; POTASSIUM 3.5 mmol/L (3.5-5.1)
--- NOTE | 2018-08-13 10:40 | RAD ---
Portable chest, 08/13/2018: HISTORY: Cough, elevated white blood cell count The heart is mildly enlarged. There are moderate bibasilar pulmonary infiltrates. The left hemidiaphragm is obscured. A component of pleural fluid cannot be excluded. Moderate spurring is present in the spine. IMPRESSION: Moderate bibasilar pulmonary infiltrates, left greater than right, suggesting pneumonia versus pulmonary edema. Electronically signed by: Mikal Martinez MD (08/13/2018 10:37 AM) [facility]
--- NOTE | 2018-08-13 11:40 | PDOC2 ---
CONSULT Date of Admission DATE: 08/13/18 TIME: 11:14 Reason for Consult: presumed new onset atrial fibrillation History of Present Illness HISTORY OF PRESENT ILLNESS: Mr Stein is a 83 year old male transferred from [facility] where he was admitted with acute respiratory distress. He was apparently stabilized medically but became increasingly confused, agitated and aggressive so was transferred for inpatient psychiatric treatment. He was noted on admission to be in atrial fibrillation which was not mentioned in his history from [place] and is presumed new onset, so consult was called. He is a very poor historian and most of history is obtained from the chart. He is currently up in wheelchair, just finished working with OT and pushing himself down the craig. He reports "having a hard time for a week but feeling better now." He admits to a cough but is unable to tell me if it is productive or not. He denies chest pain. 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 No history of alcohol or drug abuse and a non smoker. Current Medications Current Medications Acetaminophen (Tylenol) 650 mg PRN Q6HRS PRN PO PAIN / TEMP; Start 08/11/18 at 18:30 Multi-Ingredient Ointment (Analgesic [place]) 1 jonathan PRN QID PRN TP MUSCLE PAIN; Start 08/11/18 at 18:30 Al Hydroxide/Mg Hydroxide (Mylanta Plus Xs) 15 ml PRN AFTMEALHC PRN PO DYSPEPSIA; Start 08/11/18 at 18:30 Magnesium Hydroxide (Milk Of Magnesia) 2,400 mg PRN QHS PRN PO CONSTIPATION; Start 08/11/18 at 18:30 Olanzapine (ZyPREXA ZYDIS) 2.5 mg PRN Q2HR PRN PO PSYCHOSIS Last administered on 08/12/18at 21:20; Start 08/11/18 at 18:45 Tramadol HCl (Ultram) 50 mg PRN BID PRN PO PAIN; Start 08/11/18 at 20:00 Albuterol Sulfate (Ventolin) 2.5 mg QID NEB Last administered on 08/13/18at 10: 54; Start 08/11/18 at 21:00 Furosemide (Lasix) 20 mg DAILY PO Last administered on 08/13/18at 07:41; Start 08/12/18 at 09:00 Hydrochlorothiazide (Hydrodiuril) 25 mg DAILY PO Last administered on at 07:41; Start 08/12/18 at 09:00 Losartan Potassium (Cozaar) 50 mg BID PO Last administered on 08/13/18at 07:41 ; Start 08/11/18 at 21:00 Prednisone (Prednisone) 25 mg DAILY PO Last administered on 08/13/18at 07:42; Start 08/12/18 at 09:00 Prednisone (Prednisone) 20 mg DAILY PO ; Start 08/12/18 at 09:00; Stop at 09:00; Status DC Non-Formulary Medication (Arformoterol Tartrate (Brovana)) 15 mcg BID IH ; Start 08/11/18 at 21:00; Stop 08/11/18 at 21:00; Status DC Levothyroxine Sodium (Synthroid) 200 mcg DAILY06 PO Last administered on at 05:53; Start 08/12/18 at 06:00 Methotrexate (Rheumatrex) 12.5 mg WEEKLY PO ; Start 08/18/18 at 09:00 Metoprolol Tartrate (Lopressor) 50 mg BID PO Last administered on 08/13/18at 07 :41; Start 08/11/18 at 21:00 Simvastatin (Zocor) 20 mg HS PO Last administered on 08/12/18at 19:51; Start 08/11/18 at 21:00 Sertraline HCl (Zoloft) 50 mg DAILY PO Last administered on 08/13/18at 07:43; Start 08/13/18 at 09:00 Levothyroxine Sodium (Synthroid) 175 mcg DAILY06 PO ; Start 08/13/18 at 06:00 Levothyroxine Sodium (Synthroid) 50 mcg DAILY06 PO ; Start 08/13/18 at 06:00 Rivaroxaban (Xarelto) 15 mg DAILYWSUP PO ; Start 08/13/18 at 17:00 Vitamin D (Vitamin D3) 50,000 unit WEEKLY PO ; Start 08/19/18 at 09:00 Active Scripts Active Reported Ventolin Hfa Inhaler (Albuterol Sulfate) 18 Gm Hfa.aer.ad 1 Puff IH Tramadol Hcl (Tramadol HCl) 50 Mg Tablet 50 Mg PO BID PRN Simvastatin 20 Mg Tablet 20 Mg PO HS Prednisone 20 Mg Tablet 20 Mg PO DAILY Prednisone 10 Mg Tablet 5 Mg PO DAILY Oxybutynin Chloride 5 Mg Tablet 5 Mg PO Nystatin 15 Gm Cream..g. 1 Applic TP PRN Metoprolol Tartrate 50 Mg Tablet 50 Mg PO BID Methotrexate (Methotrexate Sodium) 2.5 Mg Tablet 12.5 Mg PO WEEKLY Losartan Potassium 50 Mg Tablet 50 Mg PO BID Levothyroxine Sodium 200 Mcg Tablet 200 Mcg PO DAILYAC Incruse Ellipta (Umeclidinium [place]) 62.5 Mcg Blst.w.dev 62.5 Mcg IH Hydrochlorothiazide Tablet (Hydrochlorothiazide) 25 Mg Tablet 25 Mg PO DAILY Furosemide 20 Mg Tablet 20 Mg PO DAILY Brovana (Arformoterol Tartrate) 15 Mcg/2 Ml Vial.neb 15 Mcg IH BID Albuterol Sulfate Neb Soln (Albuterol Sulfate) 2.5 Mg/3 Ml Vial.neb 2.5 Mg NEB TID Allergies: Coded Allergies: Penicillins (Verified Allergy, Intermediate, 08/12/18) erythromycin base (Verified Allergy, Intermediate, 08/12/18) latex (Verified Allergy, Intermediate, 08/12/18) montelukast (Verified Allergy, Intermediate, 08/12/18) tetanus toxoid, adsorbed (Verified Allergy, Intermediate, 08/12/18) Review of System he currently denies any complaints but unclear if this is secondary to mental status General: Alert, Cooperative, No acute distress HEENT: Atraumatic, EOMI Lungs: Other (coarse rhonchi improves with cough, otherwise mildly decreased throughout) Heart: Normal S1, Normal S2, Other (Irregular rate and rhythm, without gallops , clicks or rubs) Abdomen: Normal bowel sounds, Soft Extremities: No cyanosis, No edema, Normal pulses Psych/Mental Status: Mood NL VITALS Vital Signs Date Time Temp Pulse Resp B/P (MAP) Pulse Ox O2 Delivery O2 Flow Rate FiO2 08/13/18 10:54 96 Room Air 08/13/18 07:41 85 132/90 08/13/18 05:48 97.6 22 08/12/18 20:31 2.0 Labs Laboratory Tests Test 08/11/18 20:40 08/12/18 18:33 08/12/18 19:40 08/13/18 07:59 White Blood Count 10.9 x10^3/uL (4.0-11.0) 13.3 x10^3/uL (4.0-11.0) Red Blood Count 4.68 x10^6/uL (3.50-5.40) 4.43 x10^6/uL (4.30-5.70) Hemoglobin 14.3 g/dL (12.0-15.5) 13.4 g/dL (13.0-17.5) Hematocrit 42.9 % (36.0-47.0) 40.6 % (39.0-53.0) Mean Corpuscular Volume 92 fL (79-100) 92 fL (79-100) Mean Corpuscular Hemoglobin 31 pg (25-35) 30 pg (25-35) Mean Corpuscular Hemoglobin Concent 33 g/dL (31-37) 33 g/dL (31-37) Red Cell Distribution Width 15.0 % (11.5-14.5) 14.9 % (11.5-14.5) Platelet Count 285 x10^3/uL (140-400) 292 x10^3/uL (140-400) Neutrophils (%) (Auto) 87 % (31-73) 83 % (31-73) Lymphocytes (%) (Auto) 6 % (24-48) 10 % (24-48) Monocytes (%) (Auto) 6 % (0-9) 7 % (0-9) Eosinophils (%) (Auto) 0 % (0-3) 1 % (0-3) Basophils (%) (Auto) 1 % (0-3) 0 % (0-3) Neutrophils # (Auto) 9.4 x10^3uL (1.8-7.7) 11.0 x10^3uL (1.8-7.7) Lymphocytes # (Auto) 0.7 x10^3/uL (1.0-4.8) 1.3 x10^3/uL (1.0-4.8) Monocytes # (Auto) 0.6 x10^3/uL (0.0-1.1) 0.9 x10^3/uL (0.0-1.1) Eosinophils # (Auto) 0.0 x10^3/uL (0.0-0.7) 0.1 x10^3/uL (0.0-0.7) Basophils # (Auto) 0.1 x10^3/uL (0.0-0.2) 0.0 x10^3/uL (0.0-0.2) Sodium Level 140 mmol/L (136-145) 140 mmol/L (136-145) Potassium Level 4.2 mmol/L (3.5-5.1) 3.5 mmol/L (3.5-5.1) Chloride Level 99 mmol/L (98-107) 103 mmol/L (98-107) Carbon Dioxide Level 34 mmol/L (21-32) 33 mmol/L (21-32) Anion Gap 7 (6-14) 4 (6-14) Blood Urea Nitrogen 20 mg/dL (7-20) 32 mg/dL (8-26) Creatinine 1.4 mg/dL (0.6-1.0) 1.5 mg/dL (0.7-1.3) Estimated GFR (Cockcroft-Gault) 36.0 44.8 BUN/Creatinine Ratio 14 (6-20) Glucose Level 117 mg/dL (70-99) 102 mg/dL (70-99) Hemoglobin A1c 6.2 % (4.8-5.6) Calcium Level 9.1 mg/dL (8.5-10.1) 8.9 mg/dL (8.5-10.1) Magnesium Level 2.1 mg/dL (1.8-2.4) Iron Level 31 ug/dL (50-170) Total Iron Binding Capacity 281 ug/dL (250-450) Iron Saturation 11 % (15-34) Total Bilirubin 0.6 mg/dL (0.2-1.0) Aspartate Amino Transf (AST/SGOT) 34 U/L (15-37) Alanine Aminotransferase (ALT/SGPT) 84 U/L (14-59) Alkaline Phosphatase 66 U/L (46-116) Total Protein 7.4 g/dL (6.4-8.2) Albumin 3.0 g/dL (3.4-5.0) Albumin/Globulin Ratio 0.7 (1.0-1.7) Triglycerides Level 112 mg/dL (0-150) Cholesterol Level 157 mg/dL (0-200) LDL Cholesterol, Calculated 85 mg/dL (0-100) VLDL Cholesterol, Calculated 22 mg/dL (0-40) Non-HDL Cholesterol Calculated 107 mg/dL (0-129) HDL Cholesterol 50 mg/dL (40-60) Cholesterol/HDL Ratio 3.0 Vitamin B12 Level 1240 pg/mL (247-911) 25-Hydroxy Vitamin D Total 27.6 ng/mL (30-100) Thyroid Stimulating Hormone (TSH) 7.308 uIU/mL (0.358-3.740) Thyroxine (T4) 4.1 ug/dL (4.5-12.0) Total Triiodothyronine 39 ng/dL (71-180) Treponema pallidum Antibody Nonreactive (Nonreactive) Urine Collection Type Unknown Urine Color [place] Urine Clarity Clear Urine pH 7.0 Urine Specific [place] 1.015 Urine Protein 100 mg/dl (NEG-TRACE) Urine Glucose (UA) Neg mg/dL (NEG) Urine Ketones (Stick) Neg mg/dL (NEG) Urine Blood Neg (NEG) Urine Nitrite Neg (NEG) Urine Bilirubin Neg (NEG) Urine Urobilinogen Dipstick 0.2 mg/dL (0.2 mg/dL) Urine Leukocyte Esterase Neg (NEG) Urine RBC Rare /HPF (0-2) Urine WBC Rare /HPF (0-4) Urine Squamous Epithelial Cells Occ /LPF Urine Transitional Epithelial Cells Occ /LPF Urine Bacteria 0 /HPF (0-FEW) Urine Mucus Slight /LPF Creatine Kinase 203 U/L (26-192) Troponin I Quantitative 0.031 ng/mL (0-0.055) 0.047 ng/mL (0-0.055) Images EKG atrial fibrillation with controlled ventricular response, Possible old IWMI and ASMI age undetermined, No acute ischemic changes. Assessment/Plan 1. Atrial fibrillation, presumed new onset -likely precipitated by thyroid and respiratory dysfunction. Currently rate controlled. Continue metoprolol. Await echo. On OAC for stroke prevention. 2. hypertension - controlled 3. HLD - continue statijn 4. COPD - CXR today 5. hypothyroid - per PCP Continue supportive mgmt. KARLIE SAUCEDO GARNETT FIXER Aug 13, 2018 11:40
--- NOTE | 2018-08-13 13:46 | NUR ---
Behavior Intervention Response and Plan: BIRP Note: Behavior: Assumed Care of patient, patient located in Dining Room at shift change. Patient exhibited the following behavior Disorganized, Compulsive, Restless. Brief assessment on rounds of vital signs, medication needs, lab studies, and pain. Treatment plan problems . Intervention: Patient assessed and the following interventions initiated safety checks 15 Minute Checks Cognitive Assessment , Head to toe Assessment , Medications. Response: After interactions and interventions patient responded in the following manner, Disorganized , Restless ,Compliant. Continue to assess behaviors and condition will continue to monitor throughout the shift as needed. Patient educated on ADL's, and hand hygiene. 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 Continue to assess patient for changes in above assessment. Monitor for medication needs, pain, and safety concerns. Hourly rounding performed to ensure safe environment.
[2018-08-13] MEDS ORDERED: POTASSIUM CHLORIDE 20 MEQ TABLET.ER. PO ONE (15:15)
[2018-08-13] MEDS ORDERED: FUROSEMIDE 20 MG TABLET PO ONE (15:15)
--- NOTE | 2018-08-13 15:33 | CARD ---
MR#: [id number] Date of Study: 08/13/2018 Ordering Physician: BARBARA SILVA, Referring Physician: Arivn SOTO: Ruchi Gay APPROVED REPORT EXAM: Two-dimensional and M-mode echocardiogram with Doppler and color Doppler. Other Information Quality : Average INDICATION Atrial Fibrillation Congestive Heart Failure 2D DIMENSIONS IVSd1.4 (0.7-1.1cm)Aortic Root(2D)2.9 (2.0-3.7cm) LVDd4.9 (3.9-5.9cm)LVOT Diameter2.2 (1.8-2.4cm) PWd1.5 (0.7-1.1cm)LVDs3.0 (2.5-4.0cm) Aortic Valve AoV VTI19.8cmAO Peak GR.5.6mmHg LVOT VTI 13.80cmAO Mean GR.4mmHg YANIV (VMAX)2.80cm2 Tricuspid Valve RAP [id number] Peak Gr.19mmHg [id number] LEFT VENTRICLE The left ventricle is normal size. There is mild to moderate concentric left ventricular hypertrophy. The left ventricular sytolic function is normal. The Ejection Fraction is estimated at 55%. There is normal LV segmental wall motion. Diastology indeterminent. RIGHT VENTRICLE The right ventricle is normal size. There is normal right ventricular wall thickness. The right ventr icular systolic function is normal. ATRIA The left atrium size is normal. The right atrium size is normal. The interatrial septum is intact wit h no evidence for an atrial septal defect or patent foramen ovale as noted on 2-D or Doppler imaging. AORTIC VALVE The aortic valve is normal in structure and function. Doppler and Color Flow revealed trace aortic re gurgitation. There is no significant aortic valvular stenosis. MITRAL VALVE The mitral valve is normal in structure and function. There is no mitral valve stenosis. Doppler and Color-flow revealed trace mitral regurgitation. TRICUSPID VALVE The tricuspid valve is not well visualized. Doppler and Color Flow revealed no tricuspid valve regurg itation noted. There is no tricuspid valve stenosis. PULMONIC VALVE The pulmonic valve is not well visualized. Doppler and Color Flow revealed trace pulmonic valvular re gurgitation. GREAT VESSELS The aortic root is normal in size. The IVC is normal in size and collapses >50% with inspiration. PERICARDIAL EFFUSION There is no evidence of significant pericardial effusion. Critical Notification Critical Value: No <Conclusion> The left ventricular sytolic function is normal. The Ejection Fraction is estimated at 55%. There is normal LV segmental wall motion. Trace mitral regurgitation. There is no evidence of significant pericardial effusion. Signed by : Dwayne Davison, Electronically Approved : 08/13/2018 15:33:29
[2018-08-13 15:52] VITALS: BP 106/72
[2018-08-13] MEDS: RIVAROXABAN 15 MG TABLET. PO SCH (16:52)
--- NOTE | 2018-08-13 17:14 | EKG ---
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
--- NOTE | 2018-08-13 17:46 | NUR ---
pt up in broda, restless and attempting to get up. unsteady on feet. pt put in wc in afternoon. still impulsive. pt congested all lobes. CXR per order. ECHO done and is pending. Seen by cardiology. CXR Results called to Dr. Huang orders for Doxy BID x10 days. Cardiology ordered one time dose of Lasix and K+. Pt restless in afternoon and zydis given. Has been confused but compliant with meds and cares.
[2018-08-13] MEDS: SIMVASTATIN 20 MG TABLET PO SCH (20:07)
[2018-08-13] MEDS: DOXYCYCLINE HYCLATE 100 MG TABLET PO SCH (20:09)
[2018-08-13] MEDS: traZODone 50 MG TABLET. PO PRN (20:11)
--- NOTE | 2018-08-13 23:43 | PDOC ---
Exam Note: Cr Note: Please also refer to the separate dictated note~for this date of service dictated separately.~Patient seen individually. Discussed the patient with Nursing staff reviewed the chart.~Reviewed interim history and current functioning. Reviewed vital signs,~Labs/ Radiology~and current medications noted below. Continue current treatment with the changes noted in the dictated addendum note Assessment: Vital Signs: Vital Signs Date Time Temp Pulse Resp B/P (MAP) Pulse Ox O2 Delivery O2 Flow Rate FiO2 08/13/18 20:15 98 Nasal Cannula 2.0 08/13/18 20:08 85 106/72 08/13/18 15:52 98.5 19 I&O Intake and Output 08/13/18 07:00 Intake Total 660 ml Balance 660 ml Intake Oral 660 ml # Voids 3 Labs: Laboratory Tests Test 08/13/18 07:59 White Blood Count 13.3 x10^3/uL (4.0-11.0) H Red Blood Count 4.43 x10^6/uL (4.30-5.70) Hemoglobin 13.4 g/dL (13.0-17.5) Hematocrit 40.6 % (39.0-53.0) Mean Corpuscular Volume 92 fL (79-100) Mean Corpuscular Hemoglobin 30 pg (25-35) Mean Corpuscular Hemoglobin Concent 33 g/dL (31-37) Red Cell Distribution Width 14.9 % (11.5-14.5) H Platelet Count 292 x10^3/uL (140-400) Neutrophils (%) (Auto) 83 % (31-73) H Lymphocytes (%) (Auto) 10 % (24-48) L Monocytes (%) (Auto) 7 % (0-9) Eosinophils (%) (Auto) 1 % (0-3) Basophils (%) (Auto) 0 % (0-3) Neutrophils # (Auto) 11.0 x10^3uL (1.8-7.7) H Lymphocytes # (Auto) 1.3 x10^3/uL (1.0-4.8) Monocytes # (Auto) 0.9 x10^3/uL (0.0-1.1) Eosinophils # (Auto) 0.1 x10^3/uL (0.0-0.7) Basophils # (Auto) 0.0 x10^3/uL (0.0-0.2) Sodium Level 140 mmol/L (136-145) Potassium Level 3.5 mmol/L (3.5-5.1) Chloride Level 103 mmol/L (98-107) Carbon Dioxide Level 33 mmol/L (21-32) H Anion Gap 4 (6-14) L Blood Urea Nitrogen 32 mg/dL (8-26) H Creatinine 1.5 mg/dL (0.7-1.3) H Estimated GFR (Cockcroft-Gault) 44.8 Glucose Level 102 mg/dL (70-99) H Calcium Level 8.9 mg/dL (8.5-10.1) Troponin I Quantitative 0.047 ng/mL (0-0.055) IZ-Pfe-R-Type Natriuretic Peptide 7680 pg/mL (0-449) H Current Medications: Meds: Current Medications Acetaminophen (Tylenol) 650 mg PRN Q6HRS PRN PO PAIN / TEMP; Start 08/11/18 at 18:30 Multi-Ingredient Ointment (Analgesic [place]) 1 jonathan PRN QID PRN TP MUSCLE PAIN; Start 08/11/18 at 18:30 Al Hydroxide/Mg Hydroxide (Mylanta Plus Xs) 15 ml PRN AFTMEALHC PRN PO DYSPEPSIA; Start 08/11/18 at 18:30 Magnesium Hydroxide (Milk Of Magnesia) 2,400 mg PRN QHS PRN PO CONSTIPATION; Start 08/11/18 at 18:30 Olanzapine (ZyPREXA ZYDIS) 2.5 mg PRN Q2HR PRN PO PSYCHOSIS Last administered on 08/13/18at 16:52; Start 08/11/18 at 18:45 Tramadol HCl (Ultram) 50 mg PRN BID PRN PO PAIN; Start 08/11/18 at 20:00 Albuterol Sulfate (Ventolin) 2.5 mg QID NEB Last administered on 08/13/18at 20: 10; Start 08/11/18 at 21:00 Furosemide (Lasix) 20 mg DAILY PO Last administered on 08/13/18at 07:41; Start 08/12/18 at 09:00 Hydrochlorothiazide (Hydrodiuril) 25 mg DAILY PO Last administered on at 07:41; Start 08/12/18 at 09:00 Losartan Potassium (Cozaar) 50 mg BID PO Last administered on 08/13/18at 20:08 ; Start 08/11/18 at 21:00 Prednisone (Prednisone) 25 mg DAILY PO Last administered on 08/13/18at 07:42; Start 08/12/18 at 09:00 Prednisone (Prednisone) 20 mg DAILY PO ; Start 08/12/18 at 09:00; Stop at 09:00; Status DC Non-Formulary Medication (Arformoterol Tartrate (Brovana)) 15 mcg BID IH ; Start 08/11/18 at 21:00; Stop 08/11/18 at 21:00; Status DC Levothyroxine Sodium (Synthroid) 200 mcg DAILY06 PO Last administered on at 05:53; Start 08/12/18 at 06:00; Stop 08/13/18 at 15:08; Status DC Methotrexate (Rheumatrex) 12.5 mg WEEKLY PO ; Start 08/18/18 at 09:00 Metoprolol Tartrate (Lopressor) 50 mg BID PO Last administered on 08/13/18at 20 :08; Start 08/11/18 at 21:00 Simvastatin (Zocor) 20 mg HS PO Last administered on 08/13/18at 20:07; Start 08/11/18 at 21:00 Sertraline HCl (Zoloft) 50 mg DAILY PO Last administered on 08/13/18at 07:43; Start 08/13/18 at 09:00 Levothyroxine Sodium (Synthroid) 175 mcg DAILY06 PO ; Start 08/13/18 at 06:00 Levothyroxine Sodium (Synthroid) 50 mcg DAILY06 PO ; Start 08/13/18 at 06:00 Rivaroxaban (Xarelto) 15 mg DAILYWSUP PO Last administered on 08/13/18at 16:52 ; Start 08/13/18 at 17:00 Vitamin D (Vitamin D3) 50,000 unit WEEKLY PO ; Start 08/19/18 at 09:00 Doxycycline Hyclate (Vibra-Tab) 100 mg BID PO Last administered on 08/13/18at 20:09; Start 08/13/18 at 21:00; Stop 08/23/18 at 20:59 Furosemide (Lasix) 20 mg 1X ONCE PO Last administered on 08/13/18at 15:40; Start 08/13/18 at 15:15; Stop 08/13/18 at 15:19; Status DC Potassium Chloride (Klor-Con) 20 meq 1X ONCE PO Last administered on at 15:40; Start 08/13/18 at 15:15; Stop 08/13/18 at 15:19; Status DC Trazodone HCl (Desyrel) 50 mg PRN QHS PRN PO INSOMNIA, MAY REPEAT X1 Last administered on 08/13/18at 20:11; Start 08/13/18 at 18:15 Active Scripts Active Reported Ventolin Hfa Inhaler (Albuterol Sulfate) 18 Gm Hfa.aer.ad 1 Puff IH Tramadol Hcl (Tramadol HCl) 50 Mg Tablet 50 Mg PO BID PRN Simvastatin 20 Mg Tablet 20 Mg PO HS Prednisone 20 Mg Tablet 20 Mg PO DAILY Prednisone 10 Mg Tablet 5 Mg PO DAILY Oxybutynin Chloride 5 Mg Tablet 5 Mg PO Nystatin 15 Gm Cream..g. 1 Applic TP PRN Metoprolol Tartrate 50 Mg Tablet 50 Mg PO BID Methotrexate (Methotrexate Sodium) 2.5 Mg Tablet 12.5 Mg PO WEEKLY Losartan Potassium 50 Mg Tablet 50 Mg PO BID Levothyroxine Sodium 200 Mcg Tablet 200 Mcg PO DAILYAC Incruse Ellipta (Umeclidinium [place]) 62.5 Mcg Blst.w.dev 62.5 Mcg IH Hydrochlorothiazide Tablet (Hydrochlorothiazide) 25 Mg Tablet 25 Mg PO DAILY Furosemide 20 Mg Tablet 20 Mg PO DAILY Brovana (Arformoterol Tartrate) 15 Mcg/2 Ml Vial.neb 15 Mcg IH BID Albuterol Sulfate Neb Soln (Albuterol Sulfate) 2.5 Mg/3 Ml Vial.neb 2.5 Mg NEB TID I have reviewed the current psychotropics carefully including drug interactions. Risk benefit ratio favors no change other than as noted in my dictated progress note. Diagnosis: Problems: (1) MDD (major depressive disorder) (2) Anxiety disorder (3) Dementia, vascular, with depression (4) Impulse control disorder LAURA HOLGUIN MD Aug 13, 2018 23:43
[2018-08-14] MEDS: traZODone 50 MG TABLET. PO PRN (00:35)
--- NOTE | 2018-08-14 00:53 | NUR ---
Nursing Note Pt confused, wandering, not taking directions. Keeps taking off his oxygen. Gets irritable with redirection.
[2018-08-14] MEDS: ALBUTEROL SULFATE 2.5 MG/3 ML NEBU. NEB SCH ×4 (05:27→20:15)
[2018-08-14] MEDS: LEVOTHYROXINE 175 MCG TABLET PO SCH (05:34)
[2018-08-14] MEDS: LEVOTHYROXINE 50 MCG TABLET PO SCH (06:00)
[2018-08-14 06:21] VITALS: BP 127/77
[2018-08-14] MEDS: predniSONE 10 MG TABLET PO SCH (08:04)
[2018-08-14] MEDS: FUROSEMIDE 20 MG TABLET PO SCH (08:05)
[2018-08-14] MEDS: SERTRALINE 50 MG TABLET. PO SCH (08:05)
[2018-08-14] MEDS: LOSARTAN 50 MG TABLET. PO SCH ×2 (08:05→20:55)
[2018-08-14] MEDS: hydroCHLOROthiazide 25 MG TABLET PO SCH (08:05)
[2018-08-14] MEDS: METOPROLOL TART IMMED RELEASE 50 MG TABLET PO SCH ×2 (08:05→21:00)
[2018-08-14] MEDS: DOXYCYCLINE HYCLATE 100 MG TABLET PO SCH ×2 (08:05→20:54)
[2018-08-14] MEDS: LACTOBACILLUS RHAMNOSUS GG 1 CAPSULE. PO SCH ×2 (08:07→20:55)
--- NOTE | 2018-08-14 10:37 | EKG ---
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
--- NOTE | 2018-08-14 11:26 | NUR ---
Behavior Intervention Response and Plan: BIRP Note: Behavior: Assumed Care of patient, patient located in Dining Room at shift change. Patient exhibited the following behavior Disorganized, Compulsive, Restless. Brief assessment on rounds of vital signs, medication needs, lab studies, and pain. Treatment plan problems . Intervention: Patient assessed and the following interventions initiated safety checks 15 Minute Checks Cognitive Assessment , Head to toe Assessment , Medications. Response: After interactions and interventions patient responded in the following manner, Disorganized , Restless ,Compliant. Continue to assess behaviors and condition will continue to monitor throughout the shift as needed. Patient educated on ADL's, and hand hygiene. 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 Continue to assess patient for changes in above assessment. Monitor for medication needs, pain, and safety concerns. Hourly rounding performed to ensure safe environment.
--- NOTE | 2018-08-14 11:33 | NUR ---
Behavior Intervention Response and Plan: BIRP Note: Behavior: Assumed Care of patient, patient located in Dining Room at shift change. Patient exhibited the following behavior Disorganized, Compulsive, Restless. Brief assessment on rounds of vital signs, medication needs, lab studies, and pain. Treatment plan problems . Intervention: Patient assessed and the following interventions initiated safety checks 15 Minute Checks Cognitive Assessment , Head to toe Assessment , Medications. Response: After interactions and interventions patient responded in the following manner, Disorganized , Restless ,Compliant. Continue to assess behaviors and condition will continue to monitor throughout the shift as needed. Patient educated on ADL's, and hand hygiene. 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 Continue to assess patient for changes in above assessment. Monitor for medication needs, pain, and safety concerns. Hourly rounding performed to ensure safe environment.
[2018-08-14 16:48] VITALS: BP 112/71
[2018-08-14] MEDS: RIVAROXABAN 15 MG TABLET. PO SCH (17:56)
--- NOTE | 2018-08-14 18:47 | NUR ---
pt up in broda. drowsy at times. restless and impulsive at times. confused. compliant with meds and cares. Code status verified with family as DNR. and dtr to see pt tomorrow.
--- NOTE | 2018-08-14 19:55 | PN ---
DATE: 08/12/2018 PSYCHIATRIC PROGRESS NOTE This late entry 08/12/2018 covers elements not covered in my initial note. SUBJECTIVE: I met with the patient in the evening. The patient was staffed at a treatment team meeting with the entire team in the morning. We reviewed his history at length. Reportedly, the patient has been somewhat anxious, restless, more confused, has been in a Broda chair. According to the family, he was mowing his yard until this past weekend. He had a history of fall on the staircase, but this is when he was climbing up and he fell forward with no head injury noted. He is sleeping very poorly at night. Gets agitated, psychotic at times, received Zyprexa x 1, and had received 1 mg of Ativan before he was transferred from [facility] to us. 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 REVIEW OF SYSTEMS: Ambulation impaired. No CV, , pulmonary, eye, ENT system symptoms on review. MENTAL STATUS EXAM: Oriented to himself. Insight, judgment, recent, remote memory, attention, concentration, fund of knowledge poor, consistent with his diagnosis mentioned in my initial note. 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 PLAN: From a psychiatric standpoint, we will go ahead and start the patient on Zoloft 50 mg a day. Continue Zyprexa p.r.n. Rest unchanged from initial note. LAURA HOLGUIN MD DR: JENI/laina JOB#: [id number] / [id number]
[2018-08-14] MEDS: SIMVASTATIN 20 MG TABLET PO SCH (21:01)
--- NOTE | 2018-08-14 22:58 | NUR ---
Behavior Intervention Response and Plan: BIRP Note: Behavior: Assumed Care of patient, patient located in Day Room at shift change. Patient exhibited the following behavior Calm, Social, Compliant. Brief assessment on rounds of vital signs, medication needs, lab studies, and pain. Treatment plan problems . Intervention: Patient assessed and the following interventions initiated safety checks 15 Minute Checks Personal Alarm in place , Cognitive Assessment , Head to toe Assessment. Response: After interactions and interventions patient responded in the following manner, Calm , Cooperative ,Compliant. Continue to assess behaviors and condition will continue to monitor throughout the shift as needed. Patient educated on ADL's, and hand hygiene. Plan: Continue to monitor Master Treatment Plan for patient's progress toward short term goals of Improved Mood, No harm To self/ others, correction goals to return to previous living setting vs placement. Continue to assess patient for changes in above assessment. Monitor for medication needs, pain, and safety concerns. Hourly rounding performed to ensure safe environment.
--- NOTE | 2018-08-14 23:08 | PDOC ---
Exam Note: Cr Note: Please also refer to the separate dictated note~for this date of service dictated separately.~Patient seen individually. Discussed the patient with Nursing staff reviewed the chart.~Reviewed interim history and current functioning. Reviewed vital signs,~Labs/ Radiology~and current medications noted below. Continue current treatment with the changes noted in the dictated addendum note Assessment: Vital Signs: Vital Signs Date Time Temp Pulse Resp B/P (MAP) Pulse Ox O2 Delivery O2 Flow Rate FiO2 08/14/18 21:00 62 123/73 08/14/18 20:15 97 Nasal Cannula 2.0 08/14/18 16:48 97.7 22 I&O Intake and Output 08/14/18 07:00 Intake Total 1200 ml Balance 1200 ml Intake Oral 1200 ml # Voids 1 # Bowel Movements 1 Current Medications: Meds: Current Medications Acetaminophen (Tylenol) 650 mg PRN Q6HRS PRN PO PAIN / TEMP; Start 08/11/18 at 18:30 Multi-Ingredient Ointment (Analgesic [place]) 1 jonathan PRN QID PRN TP MUSCLE PAIN; Start 08/11/18 at 18:30 Al Hydroxide/Mg Hydroxide (Mylanta Plus Xs) 15 ml PRN AFTMEALHC PRN PO DYSPEPSIA; Start 08/11/18 at 18:30 Magnesium Hydroxide (Milk Of Magnesia) 2,400 mg PRN QHS PRN PO CONSTIPATION; Start 08/11/18 at 18:30 Olanzapine (ZyPREXA ZYDIS) 2.5 mg PRN Q2HR PRN PO PSYCHOSIS Last administered on 08/14/18at 00:35; Start 08/11/18 at 18:45 Tramadol HCl (Ultram) 50 mg PRN BID PRN PO PAIN; Start 08/11/18 at 20:00 Albuterol Sulfate (Ventolin) 2.5 mg QID NEB Last administered on 08/14/18at 20: 15; Start 08/11/18 at 21:00 Furosemide (Lasix) 20 mg DAILY PO Last administered on 08/14/18at 08:05; Start 08/12/18 at 09:00 Hydrochlorothiazide (Hydrodiuril) 25 mg DAILY PO Last administered on at 08:05; Start 08/12/18 at 09:00 Losartan Potassium (Cozaar) 50 mg BID PO Last administered on 08/14/18at 20:55 ; Start 08/11/18 at 21:00 Prednisone (Prednisone) 25 mg DAILY PO Last administered on 08/14/18at 08:04; Start 08/12/18 at 09:00 Prednisone (Prednisone) 20 mg DAILY PO ; Start 08/12/18 at 09:00; Stop at 09:00; Status DC Non-Formulary Medication (Arformoterol Tartrate (Brovana)) 15 mcg BID IH ; Start 08/11/18 at 21:00; Stop 08/11/18 at 21:00; Status DC Levothyroxine Sodium (Synthroid) 200 mcg DAILY06 PO Last administered on at 05:53; Start 08/12/18 at 06:00; Stop 08/13/18 at 15:08; Status DC Methotrexate (Rheumatrex) 12.5 mg WEEKLY PO ; Start 08/18/18 at 09:00 Metoprolol Tartrate (Lopressor) 50 mg BID PO Last administered on 08/14/18at 21 :00; Start 08/11/18 at 21:00 Simvastatin (Zocor) 20 mg HS PO Last administered on 08/14/18at 21:01; Start 08/11/18 at 21:00 Sertraline HCl (Zoloft) 50 mg DAILY PO Last administered on 08/14/18at 08:05; Start 08/13/18 at 09:00 Levothyroxine Sodium (Synthroid) 175 mcg DAILY06 PO Last administered on at 05:34; Start 08/13/18 at 06:00 Levothyroxine Sodium (Synthroid) 50 mcg DAILY06 PO Last administered on at 06:00; Start 08/13/18 at 06:00 Rivaroxaban (Xarelto) 15 mg DAILYWSUP PO Last administered on 08/14/18at 17:56 ; Start 08/13/18 at 17:00 Vitamin D (Vitamin D3) 50,000 unit WEEKLY PO ; Start 08/19/18 at 09:00 Doxycycline Hyclate (Vibra-Tab) 100 mg BID PO Last administered on 08/14/18at 20:54; Start 08/13/18 at 21:00; Stop 08/23/18 at 20:59 Furosemide (Lasix) 20 mg 1X ONCE PO Last administered on 08/13/18at 15:40; Start 08/13/18 at 15:15; Stop 08/13/18 at 15:19; Status DC Potassium Chloride (Klor-Con) 20 meq 1X ONCE PO Last administered on at 15:40; Start 08/13/18 at 15:15; Stop 08/13/18 at 15:19; Status DC Trazodone HCl (Desyrel) 50 mg PRN QHS PRN PO INSOMNIA, MAY REPEAT X1 Last administered on 08/14/18at 00:35; Start 08/13/18 at 18:15 Lactobacillus Rhamnosus (Culturelle) 1 cap BID PO Last administered on at 20:55; Start 08/14/18 at 09:00 Active Scripts Active Reported Ventolin Hfa Inhaler (Albuterol Sulfate) 18 Gm Hfa.aer.ad 1 Puff IH Tramadol Hcl (Tramadol HCl) 50 Mg Tablet 50 Mg PO BID PRN Simvastatin 20 Mg Tablet 20 Mg PO HS Prednisone 20 Mg Tablet 20 Mg PO DAILY Prednisone 10 Mg Tablet 5 Mg PO DAILY Oxybutynin Chloride 5 Mg Tablet 5 Mg PO Nystatin 15 Gm Cream..g. 1 Applic TP PRN Metoprolol Tartrate 50 Mg Tablet 50 Mg PO BID Methotrexate (Methotrexate Sodium) 2.5 Mg Tablet 12.5 Mg PO WEEKLY Losartan Potassium 50 Mg Tablet 50 Mg PO BID Levothyroxine Sodium 200 Mcg Tablet 200 Mcg PO DAILYAC Incruse Ellipta (Umeclidinium [place]) 62.5 Mcg Blst.w.dev 62.5 Mcg IH Hydrochlorothiazide Tablet (Hydrochlorothiazide) 25 Mg Tablet 25 Mg PO DAILY Furosemide 20 Mg Tablet 20 Mg PO DAILY Brovana (Arformoterol Tartrate) 15 Mcg/2 Ml Vial.neb 15 Mcg IH BID Albuterol Sulfate Neb Soln (Albuterol Sulfate) 2.5 Mg/3 Ml Vial.neb 2.5 Mg NEB TID I have reviewed the current psychotropics carefully including drug interactions. Risk benefit ratio favors no change other than as noted in my dictated progress note. Diagnosis: Problems: (1) MDD (major depressive disorder) (2) Anxiety disorder (3) Dementia, vascular, with depression (4) Impulse control disorder LAURA HOLGUIN MD Aug 14, 2018 23:08
--- NOTE | 2018-08-15 00:03 | PN ---
DATE: 08/13/2018 This is a late entry for date of service 08/13/2018 and covers elements not covered in my initial note. SUBJECTIVE: I met with the patient in the evening. The patient slept 4-3/4 hours previous evening. Gait is unsteady. Reportedly, he had an echo and a chest x-ray and Lasix was increased per Dr. Fox/Dr. Chaudhary. He does have a history of new onset AFib, which perhaps could partially contribute to his confusion. Slept 4-3/4 hours previous evening. REVIEW OF SYSTEMS: Hard of hearing, impaired ambulation, in Broda chair. No CV, , eye system symptoms on review. MENTAL STATUS EXAM: Oriented to himself. Insight, judgment, recent and remote memory, attention, concentration, fund of knowledge poor, consistent with his diagnosis as mentioned in my initial note. PLAN: Start trazodone 50 mg at bedtime p.r.n., february repeat x 1 for insomnia. Rest unchanged from initial note. MAN Jason HOLGUIN MD DR: JENI/laina JOB#: [id number] / [id number]
[2018-08-15] MEDS: LEVOTHYROXINE 175 MCG TABLET PO SCH (05:02)
[2018-08-15] MEDS: LEVOTHYROXINE 50 MCG TABLET PO SCH (05:03)
[2018-08-15] MEDS: ALBUTEROL SULFATE 2.5 MG/3 ML NEBU. NEB SCH ×4 (05:07→20:31)
--- NOTE | 2018-08-15 05:52 | NUR ---
At 0500 Pt was given a zydis after unsuccessful attempts to verbally re-direct patient when he was getting up and out of his chair, standing up on his unsteady feet, as well as removing oxygen and biting the tubing. Pt was given mitts to put on in an attempt to control pulling the oxygen tubing and being combative with staff. The pt was given zydis 2.5mg the medication begin to take effect around 0550 when the pt was starting to fall asleep. Pt oxygen sats were taken and he was 96% at room air. Will continue to monitor patient.
[2018-08-15 06:12] VITALS: BP 146/84
[2018-08-15] MEDS: predniSONE 10 MG TABLET PO SCH (07:46)
[2018-08-15] MEDS: hydroCHLOROthiazide 25 MG TABLET PO SCH (07:46)
[2018-08-15] MEDS: LOSARTAN 50 MG TABLET. PO SCH ×2 (07:46→20:37)
[2018-08-15] MEDS: LACTOBACILLUS RHAMNOSUS GG 1 CAPSULE. PO SCH ×2 (07:46→20:38)
[2018-08-15] MEDS: DOXYCYCLINE HYCLATE 100 MG TABLET PO SCH ×2 (07:46→20:37)
[2018-08-15] MEDS: METOPROLOL TART IMMED RELEASE 50 MG TABLET PO SCH ×2 (07:46→20:37)
[2018-08-15] MEDS: FUROSEMIDE 20 MG TABLET PO SCH (07:47)
[2018-08-15] MEDS: SERTRALINE 50 MG TABLET. PO SCH (07:47)
--- NOTE | 2018-08-15 09:27 | NUR ---
Behavior Intervention Response and Plan: BIRP Note: Behavior: Assumed Care of patient, patient located in Dining Room at shift change. Patient exhibited the following behavior Disorganized, Compulsive, Restless. Brief assessment on rounds of vital signs, medication needs, lab studies, and pain. Treatment plan problems . Intervention: Patient assessed and the following interventions initiated safety checks 15 Minute Checks Cognitive Assessment , Head to toe Assessment , Medications. Response: After interactions and interventions patient responded in the following manner, Disorganized , Restless ,Compliant. Continue to assess behaviors and condition will continue to monitor throughout the shift as needed. Patient educated on ADL's, and hand hygiene. 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 Continue to assess patient for changes in above assessment. Monitor for medication needs, pain, and safety concerns. Hourly rounding performed to ensure safe environment.
--- NOTE | 2018-08-15 13:00 | PN ---
DATE: 08/14/2018 This late entry, 08/14/2018, covers elements not covered in my initial note. SUBJECTIVE: I met with the patient in the evening. The patient slept 2-1/2 hours previous evening even with trazodone x 2. His and daughter will be visiting Thursday morning. REVIEW OF SYSTEMS: Ambulation impaired, in Broda chair. No CV, , pulmonary, eye, ENT system symptoms on review. MENTAL STATUS EXAM: Oriented to himself. Insight, judgment, recent and remote memory, attention, concentration, fund of knowledge poor, consistent with his diagnosis. He is hard of hearing. LABORATORY DATA: Reviewed. 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 PLAN: Continue psychotropics from initial note. If insomnia persists, we will add Remeron 7.5 mg at bedtime. MAN Jason HOLGUIN MD DR: JENI/laina JOB#: [id number] / [id number]
[2018-08-15 16:38] VITALS: BP 109/65
--- NOTE | 2018-08-15 16:43 | NUR ---
pt up in broda. restless and impulsive at times. has been redirectable. compliant with meds and cares. family here to see pt at noon.
[2018-08-15] MEDS: RIVAROXABAN 15 MG TABLET. PO SCH (17:18)
[2018-08-15] MEDS: SIMVASTATIN 20 MG TABLET PO SCH (20:37)
[2018-08-15] MEDS: traZODone 50 MG TABLET. PO PRN (20:39)
--- NOTE | 2018-08-15 22:10 | NUR ---
Behavior Intervention Response and Plan: BIRP Note: Behavior: Assumed Care of patient, patient located in Day Room at shift change. Patient exhibited the following behavior Interactive, Calm, Cooperative. Brief assessment on rounds of vital signs, medication needs, lab studies, and pain. Treatment plan problems . Intervention: Patient assessed and the following interventions initiated safety checks 15 Minute Checks Personal Alarm in place , Cognitive Assessment , Head to toe Assessment. Response: After interactions and interventions patient responded in the following manner, Calm , Compliant ,Cooperative. Continue to assess behaviors and condition will continue to monitor throughout the shift as needed. Patient educated on ADL's, and hand hygiene. 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 Continue to assess patient for changes in above assessment. Monitor for medication needs, pain, and safety concerns. Hourly rounding performed to ensure safe environment.
--- NOTE | 2018-08-15 23:10 | PDOC ---
Exam Note: Cr Note: Please also refer to the separate dictated note~for this date of service dictated separately.~Patient seen individually. Discussed the patient with Nursing staff reviewed the chart.~Reviewed interim history and current functioning. Reviewed vital signs,~Labs/ Radiology~and current medications noted below. Continue current treatment with the changes noted in the dictated addendum note Assessment: Vital Signs: Vital Signs Date Time Temp Pulse Resp B/P (MAP) Pulse Ox O2 Delivery O2 Flow Rate FiO2 08/15/18 20:37 78 122/69 08/15/18 20:05 94 Room Air 08/15/18 16:38 97.5 18 08/15/18 15:40 2.0 I&O Intake and Output 08/15/18 07:00 Intake Total 1080 ml Balance 1080 ml Intake Oral 1080 ml Current Medications: Meds: Current Medications Acetaminophen (Tylenol) 650 mg PRN Q6HRS PRN PO PAIN / TEMP; Start 08/11/18 at 18:30 Multi-Ingredient Ointment (Analgesic [place]) 1 jonathan PRN QID PRN TP MUSCLE PAIN; Start 08/11/18 at 18:30 Al Hydroxide/Mg Hydroxide (Mylanta Plus Xs) 15 ml PRN AFTMEALHC PRN PO DYSPEPSIA; Start 08/11/18 at 18:30 Magnesium Hydroxide (Milk Of Magnesia) 2,400 mg PRN QHS PRN PO CONSTIPATION; Start 08/11/18 at 18:30 Olanzapine (ZyPREXA ZYDIS) 2.5 mg PRN Q2HR PRN PO PSYCHOSIS Last administered on 08/15/18at 09:24; Start 08/11/18 at 18:45 Tramadol HCl (Ultram) 50 mg PRN BID PRN PO PAIN; Start 08/11/18 at 20:00 Albuterol Sulfate (Ventolin) 2.5 mg QID NEB Last administered on 08/15/18at 20: 31; Start 08/11/18 at 21:00 Furosemide (Lasix) 20 mg DAILY PO Last administered on 08/15/18at 07:47; Start 08/12/18 at 09:00 Hydrochlorothiazide (Hydrodiuril) 25 mg DAILY PO Last administered on at 07:46; Start 08/12/18 at 09:00 Losartan Potassium (Cozaar) 50 mg BID PO Last administered on 08/15/18at 20:37 ; Start 08/11/18 at 21:00 Prednisone (Prednisone) 25 mg DAILY PO Last administered on 08/15/18at 07:46; Start 08/12/18 at 09:00 Prednisone (Prednisone) 20 mg DAILY PO ; Start 08/12/18 at 09:00; Stop at 09:00; Status DC Non-Formulary Medication (Arformoterol Tartrate (Brovana)) 15 mcg BID IH ; Start 08/11/18 at 21:00; Stop 08/11/18 at 21:00; Status DC Levothyroxine Sodium (Synthroid) 200 mcg DAILY06 PO Last administered on at 05:53; Start 08/12/18 at 06:00; Stop 08/13/18 at 15:08; Status DC Methotrexate (Rheumatrex) 12.5 mg WEEKLY PO ; Start 08/18/18 at 09:00 Metoprolol Tartrate (Lopressor) 50 mg BID PO Last administered on 08/15/18at 20 :37; Start 08/11/18 at 21:00 Simvastatin (Zocor) 20 mg HS PO Last administered on 08/15/18at 20:37; Start 08/11/18 at 21:00 Sertraline HCl (Zoloft) 50 mg DAILY PO Last administered on 08/15/18at 07:47; Start 08/13/18 at 09:00 Levothyroxine Sodium (Synthroid) 175 mcg DAILY06 PO Last administered on at 05:02; Start 08/13/18 at 06:00 Levothyroxine Sodium (Synthroid) 50 mcg DAILY06 PO Last administered on at 05:03; Start 08/13/18 at 06:00 Rivaroxaban (Xarelto) 15 mg DAILYWSUP PO Last administered on 08/15/18at 17:18 ; Start 08/13/18 at 17:00 Vitamin D (Vitamin D3) 50,000 unit WEEKLY PO ; Start 08/19/18 at 09:00 Doxycycline Hyclate (Vibra-Tab) 100 mg BID PO Last administered on 08/15/18at 20:37; Start 08/13/18 at 21:00; Stop 08/23/18 at 20:59 Furosemide (Lasix) 20 mg 1X ONCE PO Last administered on 08/13/18at 15:40; Start 08/13/18 at 15:15; Stop 08/13/18 at 15:19; Status DC Potassium Chloride (Klor-Con) 20 meq 1X ONCE PO Last administered on at 15:40; Start 08/13/18 at 15:15; Stop 08/13/18 at 15:19; Status DC Trazodone HCl (Desyrel) 50 mg PRN QHS PRN PO INSOMNIA, MAY REPEAT X1 Last administered on 08/15/18at 20:39; Start 08/13/18 at 18:15 Lactobacillus Rhamnosus (Culturelle) 1 cap BID PO Last administered on at 20:38; Start 08/14/18 at 09:00 Active Scripts Active Reported Ventolin Hfa Inhaler (Albuterol Sulfate) 18 Gm Hfa.aer.ad 1 Puff IH Tramadol Hcl (Tramadol HCl) 50 Mg Tablet 50 Mg PO BID PRN Simvastatin 20 Mg Tablet 20 Mg PO HS Prednisone 20 Mg Tablet 20 Mg PO DAILY Prednisone 10 Mg Tablet 5 Mg PO DAILY Oxybutynin Chloride 5 Mg Tablet 5 Mg PO Nystatin 15 Gm Cream..g. 1 Applic TP PRN Metoprolol Tartrate 50 Mg Tablet 50 Mg PO BID Methotrexate (Methotrexate Sodium) 2.5 Mg Tablet 12.5 Mg PO WEEKLY Losartan Potassium 50 Mg Tablet 50 Mg PO BID Levothyroxine Sodium 200 Mcg Tablet 200 Mcg PO DAILYAC Incruse Ellipta (Umeclidinium [place]) 62.5 Mcg Blst.w.dev 62.5 Mcg IH Hydrochlorothiazide Tablet (Hydrochlorothiazide) 25 Mg Tablet 25 Mg PO DAILY Furosemide 20 Mg Tablet 20 Mg PO DAILY Brovana (Arformoterol Tartrate) 15 Mcg/2 Ml Vial.neb 15 Mcg IH BID Albuterol Sulfate Neb Soln (Albuterol Sulfate) 2.5 Mg/3 Ml Vial.neb 2.5 Mg NEB TID I have reviewed the current psychotropics carefully including drug interactions. Risk benefit ratio favors no change other than as noted in my dictated progress note. Diagnosis: Problems: (1) MDD (major depressive disorder) (2) Anxiety disorder (3) Dementia, vascular, with depression (4) Impulse control disorder LAURA HOLGUIN MD Aug 15, 2018 23:10
[2018-08-16] MEDS: ALBUTEROL SULFATE 2.5 MG/3 ML NEBU. NEB SCH ×4 (05:26→20:35)
[2018-08-16] MEDS: LEVOTHYROXINE 50 MCG TABLET PO SCH (05:43)
[2018-08-16] MEDS: LEVOTHYROXINE 175 MCG TABLET PO SCH (05:43)
--- NOTE | 2018-08-16 05:55 | NUR ---
Pt removed dressing from his skin tear on left forearm, I cleaned skin tear with wound cleanser as well as applied a new dressing to his skin tear.
[2018-08-16 06:11] VITALS: BP 109/65
[2018-08-16] MEDS: predniSONE 10 MG TABLET PO SCH (08:02)
[2018-08-16] MEDS: METOPROLOL TART IMMED RELEASE 50 MG TABLET PO SCH ×2 (08:03→20:03)
[2018-08-16] MEDS: DOXYCYCLINE HYCLATE 100 MG TABLET PO SCH ×2 (08:03→20:01)
[2018-08-16] MEDS: LACTOBACILLUS RHAMNOSUS GG 1 CAPSULE. PO SCH ×2 (08:03→20:01)
[2018-08-16] MEDS: LOSARTAN 50 MG TABLET. PO SCH ×2 (08:03→20:01)
[2018-08-16] MEDS: hydroCHLOROthiazide 25 MG TABLET PO SCH (08:03)
[2018-08-16] MEDS: SERTRALINE 50 MG TABLET. PO SCH (08:03)
[2018-08-16] MEDS: FUROSEMIDE 20 MG TABLET PO SCH (08:05)
--- NOTE | 2018-08-16 10:12 | RAD ---
AP and Lateral Views of the Chest 08/16/2018 9:47 AM Indication: infiltrates Comparison: Chest radiograph August 13, 2018 Findings: Patchy retrocardiac infiltrate, most likely a left lower lobe appears to remain present. There is bilateral perihilar interstitial infiltrate. No pneumothorax or significant pleural effusion is identified. Heart size is top normal. No definitively acute osseous of normality is seen. Wedging of several midthoracic vertebral bodies is seen. Chronic etiology is favored given appearance. Correlate with mid back pain. IMPRESSION: 1. Persistent left lower lobe infiltrate 2. Bilateral perihilar infiltrates which may represent edema, or an atypical infectious process. A component of chronic interstitial disease is also possible. Electronically signed by: Tera Marte MD (08/16/2018 10:09 AM) [id number]
--- NOTE | 2018-08-16 14:00 | NUR ---
Activity Therapy Assessment: Patient was sitting down in his wheel chair during the assessment. Patient was not able to remember his past, present, and current location. Patient uses a wheelchair to ambulate and a hearing aid, in addition he will need help with most of his ADLs. Patient can verbally express himself, however his speech is not clear. At times the patient can control his frustration and impulses and sometimes he unable. Initial Treatment Goals: Patient will participate in at least five individual therapy activity engagements before discharge. Addendum: 08/18/18 at 0931 by AGUILAR BURNS ACT Initial Treatment Goals: Patient will increase time management and socialization by engaging in at least five individual therapy activity engagements before discharge.
[2018-08-16 15:40] VITALS: BP 96/58
--- NOTE | 2018-08-16 15:57 | NUR ---
Pt med & assessment compliant. Smiling, joking w/ staff, participated well w/ PT (also, PT reported that during exercises pt's O2 SATS were "good"). PT recommended that pt use a W/C. Pt tolerated W/C with alarm well.
--- NOTE | 2018-08-16 16:04 | NUR ---
Behavior Intervention Response and Plan: BIRP Note: Behavior: Assumed Care of patient, patient located in Dining Room at shift change. Patient exhibited the following behavior Compliant, Cooperative, Interactive. Brief assessment on rounds of vital signs, medication needs, lab studies, and pain. Treatment plan problems Alteration in Mood and fall risk. Intervention: Patient assessed and the following interventions initiated safety checks 15 Minute Checks Head to toe Assessment , Cognitive Assessment , Medications. Response: After interactions and interventions patient responded in the following manner, Compliant , Cooperative ,Interactive. Continue to assess behaviors and condition will continue to monitor throughout the shift as needed. Patient educated on ADL's, and hand hygiene. Plan: Continue to monitor Master Treatment Plan for patient's progress toward short term goals of Decreased Agitation, Decreased Aggression, snf goals to return to previous living setting vs placement. Continue to assess patient for changes in above assessment. Monitor for medication needs, pain, and safety concerns. Hourly rounding performed to ensure safe environment.
[2018-08-16] MEDS: RIVAROXABAN 15 MG TABLET. PO SCH (16:59)
--- NOTE | 2018-08-16 18:08 | NUR ---
Family called for an update, informed them of latest results on x-ray and reminded them of medications pt has been placed on for infection as well as Xarelto for Afib. Also updated them on pt's behavior improving and assured them that pt was indeed being his hearing aid for Chochlear device on right ear.
[2018-08-16] MEDS: traZODone 50 MG TABLET. PO PRN (20:01)
[2018-08-16] MEDS: SIMVASTATIN 20 MG TABLET PO SCH (20:01)
--- NOTE | 2018-08-16 21:27 | PN ---
DATE: 08/16/2018 The note pertaining to the following dictation numbers should be removed from the chart of Raghav Young as they belong to a different patient. I have contacted medical record/health information department, Chyna Sawant had submitted a ticket number to [employer], ticket number [id number] to make these deletions as these notes have been incorporated in the correct patient's chart. To reiterate the following 6 dictation numbers and progress notes related to these numbers should be removed from the chart of Raghav Young. The dictation numbers are [id number], [id number], [id number], [id number], [id number], [id number]. MAN Jason HOLGUIN MD DR: JENI/laina JOB#: [id number] / [id number]
--- NOTE | 2018-08-16 22:19 | NUR ---
Behavior Intervention Response and Plan: BIRP Note: Behavior: Assumed Care of patient, patient located in Patient Room at shift change. Patient exhibited the following behavior Calm, Social, Compliant. Brief assessment on rounds of vital signs, medication needs, lab studies, and pain. Treatment plan problems . Intervention: Patient assessed and the following interventions initiated safety checks 15 Minute Checks Personal Alarm in place , Cognitive Assessment , Head to toe Assessment. Response: After interactions and interventions patient responded in the following manner, Calm , Cooperative ,Compliant. Continue to assess behaviors and condition will continue to monitor throughout the shift as needed. Patient educated on ADL's, and hand hygiene. Plan: Continue to monitor Master Treatment Plan for patient's progress toward short term goals of Decreased Agitation, Improved Mood, intermediate goals to return to previous living setting vs placement. Continue to assess patient for changes in above assessment. Monitor for medication needs, pain, and safety concerns. Hourly rounding performed to ensure safe environment.
--- NOTE | 2018-08-16 23:12 | PDOC ---
Exam Note: Cr Note: Please also refer to the separate dictated note~for this date of service dictated separately.~Patient seen individually. Discussed the patient with Nursing staff reviewed the chart.~Reviewed interim history and current functioning. Reviewed vital signs,~Labs/ Radiology~and current medications noted below. Continue current treatment with the changes noted in the dictated addendum note Assessment: Vital Signs: Vital Signs Date Time Temp Pulse Resp B/P (MAP) Pulse Ox O2 Delivery O2 Flow Rate FiO2 08/16/18 20:36 96 Room Air 08/16/18 20:03 93 125/72 08/16/18 15:40 97.5 17 08/15/18 15:40 2.0 I&O Intake and Output 08/16/18 07:00 Intake Total 1080 ml Balance 1080 ml Intake Oral 1080 ml Current Medications: Meds: Current Medications Acetaminophen (Tylenol) 650 mg PRN Q6HRS PRN PO PAIN / TEMP; Start 08/11/18 at 18:30 Multi-Ingredient Ointment (Analgesic [place]) 1 jonathan PRN QID PRN TP MUSCLE PAIN; Start 08/11/18 at 18:30 Al Hydroxide/Mg Hydroxide (Mylanta Plus Xs) 15 ml PRN AFTMEALHC PRN PO DYSPEPSIA; Start 08/11/18 at 18:30 Magnesium Hydroxide (Milk Of Magnesia) 2,400 mg PRN QHS PRN PO CONSTIPATION; Start 08/11/18 at 18:30 Olanzapine (ZyPREXA ZYDIS) 2.5 mg PRN Q2HR PRN PO PSYCHOSIS Last administered on 08/15/18at 09:24; Start 08/11/18 at 18:45 Tramadol HCl (Ultram) 50 mg PRN BID PRN PO PAIN; Start 08/11/18 at 20:00 Albuterol Sulfate (Ventolin) 2.5 mg QID NEB Last administered on 08/16/18at 20: 35; Start 08/11/18 at 21:00 Furosemide (Lasix) 20 mg DAILY PO Last administered on 08/16/18at 08:05; Start 08/12/18 at 09:00 Hydrochlorothiazide (Hydrodiuril) 25 mg DAILY PO Last administered on at 08:03; Start 08/12/18 at 09:00 Losartan Potassium (Cozaar) 50 mg BID PO Last administered on 08/16/18at 20:01 ; Start 08/11/18 at 21:00 Prednisone (Prednisone) 25 mg DAILY PO Last administered on 08/16/18at 08:02; Start 08/12/18 at 09:00 Prednisone (Prednisone) 20 mg DAILY PO ; Start 08/12/18 at 09:00; Stop at 09:00; Status DC Non-Formulary Medication (Arformoterol Tartrate (Brovana)) 15 mcg BID IH ; Start 08/11/18 at 21:00; Stop 08/11/18 at 21:00; Status DC Levothyroxine Sodium (Synthroid) 200 mcg DAILY06 PO Last administered on at 05:53; Start 08/12/18 at 06:00; Stop 08/13/18 at 15:08; Status DC Methotrexate (Rheumatrex) 12.5 mg WEEKLY PO ; Start 08/18/18 at 09:00 Metoprolol Tartrate (Lopressor) 50 mg BID PO Last administered on 08/16/18at 20 :03; Start 08/11/18 at 21:00 Simvastatin (Zocor) 20 mg HS PO Last administered on 08/16/18at 20:01; Start 08/11/18 at 21:00 Sertraline HCl (Zoloft) 50 mg DAILY PO Last administered on 08/16/18at 08:03; Start 08/13/18 at 09:00; Stop 08/16/18 at 16:26; Status DC Levothyroxine Sodium (Synthroid) 175 mcg DAILY06 PO Last administered on at 05:43; Start 08/13/18 at 06:00 Levothyroxine Sodium (Synthroid) 50 mcg DAILY06 PO Last administered on at 05:43; Start 08/13/18 at 06:00 Rivaroxaban (Xarelto) 15 mg DAILYWSUP PO Last administered on 08/16/18at 16:59 ; Start 08/13/18 at 17:00 Vitamin D (Vitamin D3) 50,000 unit WEEKLY PO ; Start 08/19/18 at 09:00 Doxycycline Hyclate (Vibra-Tab) 100 mg BID PO Last administered on 08/16/18at 20:01; Start 08/13/18 at 21:00; Stop 08/23/18 at 20:59 Furosemide (Lasix) 20 mg 1X ONCE PO Last administered on 08/13/18at 15:40; Start 08/13/18 at 15:15; Stop 08/13/18 at 15:19; Status DC Potassium Chloride (Klor-Con) 20 meq 1X ONCE PO Last administered on at 15:40; Start 08/13/18 at 15:15; Stop 08/13/18 at 15:19; Status DC Trazodone HCl (Desyrel) 50 mg PRN QHS PRN PO INSOMNIA, MAY REPEAT X1 Last administered on 08/16/18at 20:01; Start 08/13/18 at 18:15 Lactobacillus Rhamnosus (Culturelle) 1 cap BID PO Last administered on at 20:01; Start 08/14/18 at 09:00 Sertraline HCl (Zoloft) 75 mg DAILY PO ; Start 08/17/18 at 09:00 Active Scripts Active Reported Ventolin Hfa Inhaler (Albuterol Sulfate) 18 Gm Hfa.aer.ad 1 Puff IH Tramadol Hcl (Tramadol HCl) 50 Mg Tablet 50 Mg PO BID PRN Simvastatin 20 Mg Tablet 20 Mg PO HS Prednisone 20 Mg Tablet 20 Mg PO DAILY Prednisone 10 Mg Tablet 5 Mg PO DAILY Oxybutynin Chloride 5 Mg Tablet 5 Mg PO Nystatin 15 Gm Cream..g. 1 Applic TP PRN Metoprolol Tartrate 50 Mg Tablet 50 Mg PO BID Methotrexate (Methotrexate Sodium) 2.5 Mg Tablet 12.5 Mg PO WEEKLY Losartan Potassium 50 Mg Tablet 50 Mg PO BID Levothyroxine Sodium 200 Mcg Tablet 200 Mcg PO DAILYAC Incruse Ellipta (Umeclidinium [place]) 62.5 Mcg Blst.w.dev 62.5 Mcg IH Hydrochlorothiazide Tablet (Hydrochlorothiazide) 25 Mg Tablet 25 Mg PO DAILY Furosemide 20 Mg Tablet 20 Mg PO DAILY Brovana (Arformoterol Tartrate) 15 Mcg/2 Ml Vial.neb 15 Mcg IH BID Albuterol Sulfate Neb Soln (Albuterol Sulfate) 2.5 Mg/3 Ml Vial.neb 2.5 Mg NEB TID I have reviewed the current psychotropics carefully including drug interactions. Risk benefit ratio favors no change other than as noted in my dictated progress note. Diagnosis: Problems: (1) MDD (major depressive disorder) (2) Anxiety disorder (3) Dementia, vascular, with depression (4) Impulse control disorder LAURA HOLGUIN MD Aug 16, 2018 23:12
--- NOTE | 2018-08-16 23:40 | PN ---
DATE: 08/15/2018 PSYCHIATRIC PROGRESS NOTE This late entry 08/15/2018 covers elements not covered in my initial note. SUBJECTIVE: I met with the patient in the evening. The patient slept just 1-3/4 hours previous night. He remains somewhat withdrawn at 0500. He was agitated, biting his oxygen tubing, hitting at staff; received Zyprexa; then did better the rest of the day. He is med compliant, would not stay in bed, had to be put in a Broda chair with mitts to keep oxygen on. He had little to no sleep, stayed up in the day room all night. REVIEW OF SYSTEMS: Hard of hearing, impaired ambulation in a Broda chair. No CV, , eye, ENT system symptoms on review. He does have some shortness of breath on O2 supplements. MENTAL STATUS EXAM: Oriented to himself. Insight, judgment, recent and remote memory, attention, concentration, fund of knowledge poor consistent with his diagnosis mentioned in my initial note. LABORATORY DATA: Reviewed. IMPRESSION: Major neurocognitive disorder, Alzheimer, vascular with delusion, depression, behavioral disturbance; anxiety disorder, unspecified. Rest unchanged. PLAN: No change from initial note. May consider increasing Zoloft in due course. LAURA HOLGUIN MD DR: JENI/laina JOB#: [id number] / [id number]
[2018-08-17] MEDS: LEVOTHYROXINE 50 MCG TABLET PO SCH (06:31)
[2018-08-17] MEDS: LEVOTHYROXINE 175 MCG TABLET PO SCH (06:31)
[2018-08-17] MEDS: ALBUTEROL SULFATE 2.5 MG/3 ML NEBU. NEB SCH ×4 (06:32→20:44)
[2018-08-17 06:34] VITALS: BP 142/93
[2018-08-17] MEDS: hydroCHLOROthiazide 25 MG TABLET PO SCH (08:11)
[2018-08-17] MEDS: predniSONE 10 MG TABLET PO SCH (08:11)
[2018-08-17] MEDS: FUROSEMIDE 20 MG TABLET PO SCH (08:11)
[2018-08-17] MEDS: METOPROLOL TART IMMED RELEASE 50 MG TABLET PO SCH ×2 (08:12→19:59)
[2018-08-17] MEDS: LOSARTAN 50 MG TABLET. PO SCH ×2 (08:12→19:58)
[2018-08-17] MEDS: LACTOBACILLUS RHAMNOSUS GG 1 CAPSULE. PO SCH ×2 (08:12→19:55)
[2018-08-17] MEDS: DOXYCYCLINE HYCLATE 100 MG TABLET PO SCH ×2 (08:13→19:58)
[2018-08-17] MEDS: SERTRALINE 50 MG TABLET. PO SCH (08:15)
--- NOTE | 2018-08-17 11:10 | NUR ---
Behavior Intervention Response and Plan: BIRP Note: Behavior: Assumed Care of patient, patient located in Day Room at shift change. Patient exhibited the following behavior Compliant, Cooperative, Interactive. Brief assessment on rounds of vital signs, medication needs, lab studies, and pain. Treatment plan problems Alteration in Mood and fall risk. Intervention: Patient assessed and the following interventions initiated safety checks 15 Minute Checks Head to toe Assessment , Cognitive Assessment , Medications. Response: After interactions and interventions patient responded in the following manner, Calm, Cooperative ,Interactive. Continue to assess behaviors and condition will continue to monitor throughout the shift as needed. Patient educated on ADL's, and hand hygiene. Plan: Continue to monitor Master Treatment Plan for patient's progress toward short term goals of Decreased Agitation, Decreased Aggression, nursing home goals to return to previous living setting vs placement. Continue to assess patient for changes in above assessment. Monitor for medication needs, pain, and safety concerns. Hourly rounding performed to ensure safe environment.
[2018-08-17 16:07] VITALS: BP 134/72
[2018-08-17] MEDS: RIVAROXABAN 15 MG TABLET. PO SCH (17:50)
[2018-08-17] MEDS: SIMVASTATIN 20 MG TABLET PO SCH (19:58)
--- NOTE | 2018-08-17 21:06 | PN ---
DATE: 08/16/2018 PSYCHIATRIC PROGRESS NOTE This late entry 08/16/2018 covers elements not covered in my initial note. SUBJECTIVE: I met with the patient in the evening. The patient slept 6-1/2 hours previous night. He remains somewhat withdrawn, but more alert during the day, compliant with cares and medications. REVIEW OF SYSTEMS: Hard of hearing, impaired ambulation, in Broda chair. No CV, , pulmonary, eye system symptoms on review. MENTAL STATUS EXAM: Oriented to himself. Insight, judgment, recent memory is impaired. Language function is intact. Attention span short. Mood and affect, somewhat anxious, withdrawn at times. LABORATORY DATA: Reviewed. IMPRESSION: Major depressive disorder, recurrent major neurocognitive disorder, Alzheimer, vascular with delusion, depression. Rest unchanged. PLAN: Increase Zoloft to 75 mg a day after he has been on 50 for 3 days. Continue rest unchanged including trazodone at bedtime p.r.n. MAN Jason HOLGUIN MD DR: JENI/laina JOB#: [id number] / [id number]
--- NOTE | 2018-08-17 23:12 | PDOC ---
Exam Note: Cr Note: Please also refer to the separate dictated note~for this date of service dictated separately.~Patient seen individually. Discussed the patient with Nursing staff reviewed the chart.~Reviewed interim history and current functioning. Reviewed vital signs,~Labs/ Radiology~and current medications noted below. Continue current treatment with the changes noted in the dictated addendum note Assessment: Vital Signs: Vital Signs Date Time Temp Pulse Resp B/P (MAP) Pulse Ox O2 Delivery O2 Flow Rate FiO2 08/17/18 20:18 97 Nasal Cannula 2.0 08/17/18 19:59 56 134/72 08/17/18 16:07 97.1 16 I&O Intake and Output 08/17/18 07:00 Intake Total 1320 ml Balance 1320 ml Intake Oral 1320 ml # Voids 1 # Bowel Movements 2 Current Medications: Meds: Current Medications Acetaminophen (Tylenol) 650 mg PRN Q6HRS PRN PO PAIN / TEMP; Start 08/11/18 at 18:30 Multi-Ingredient Ointment (Analgesic [place]) 1 jonathan PRN QID PRN TP MUSCLE PAIN; Start 08/11/18 at 18:30 Al Hydroxide/Mg Hydroxide (Mylanta Plus Xs) 15 ml PRN AFTMEALHC PRN PO DYSPEPSIA; Start 08/11/18 at 18:30 Magnesium Hydroxide (Milk Of Magnesia) 2,400 mg PRN QHS PRN PO CONSTIPATION; Start 08/11/18 at 18:30 Olanzapine (ZyPREXA ZYDIS) 2.5 mg PRN Q2HR PRN PO PSYCHOSIS Last administered on 08/15/18at 09:24; Start 08/11/18 at 18:45 Tramadol HCl (Ultram) 50 mg PRN BID PRN PO PAIN; Start 08/11/18 at 20:00 Albuterol Sulfate (Ventolin) 2.5 mg QID NEB Last administered on 08/17/18at 20: 44; Start 08/11/18 at 21:00 Furosemide (Lasix) 20 mg DAILY PO Last administered on 08/17/18at 08:11; Start 08/12/18 at 09:00 Hydrochlorothiazide (Hydrodiuril) 25 mg DAILY PO Last administered on at 08:11; Start 08/12/18 at 09:00 Losartan Potassium (Cozaar) 50 mg BID PO Last administered on 08/17/18 19:58 ; Start 08/11/18 at 21:00 Prednisone (Prednisone) 25 mg DAILY PO Last administered on 08/17/18at 08:11; Start 08/12/18 at 09:00 Prednisone (Prednisone) 20 mg DAILY PO ; Start 08/12/18 at 09:00; Stop at 09:00; Status DC Non-Formulary Medication (Arformoterol Tartrate (Brovana)) 15 mcg BID IH ; Start 08/11/18 at 21:00; Stop 08/11/18 at 21:00; Status DC Levothyroxine Sodium (Synthroid) 200 mcg DAILY06 PO Last administered on at 05:53; Start 08/12/18 at 06:00; Stop 08/13/18 at 15:08; Status DC Methotrexate (Rheumatrex) 12.5 mg WEEKLY PO ; Start 08/18/18 at 09:00 Metoprolol Tartrate (Lopressor) 50 mg BID PO Last administered on 08/17/18at 19 :59; Start 08/11/18 at 21:00 Simvastatin (Zocor) 20 mg HS PO Last administered on 08/17/18 19:58; Start 08/11/18 at 21:00 Sertraline HCl (Zoloft) 50 mg DAILY PO Last administered on 08/16/18at 08:03; Start 08/13/18 at 09:00; Stop 08/16/18 at 16:26; Status DC Levothyroxine Sodium (Synthroid) 175 mcg DAILY06 PO Last administered on at 06:31; Start 08/13/18 at 06:00 Levothyroxine Sodium (Synthroid) 50 mcg DAILY06 PO Last administered on at 06:31; Start 08/13/18 at 06:00 Rivaroxaban (Xarelto) 15 mg DAILYWSUP PO Last administered on 08/17/18at 17:50 ; Start 08/13/18 at 17:00 Vitamin D (Vitamin D3) 50,000 unit WEEKLY PO ; Start 08/19/18 at 09:00 Doxycycline Hyclate (Vibra-Tab) 100 mg BID PO Last administered on 08/17/18at 19:58; Start 08/13/18 at 21:00; Stop 08/23/18 at 20:59 Furosemide (Lasix) 20 mg 1X ONCE PO Last administered on 08/13/18at 15:40; Start 08/13/18 at 15:15; Stop 08/13/18 at 15:19; Status DC Potassium Chloride (Klor-Con) 20 meq 1X ONCE PO Last administered on at 15:40; Start 08/13/18 at 15:15; Stop 08/13/18 at 15:19; Status DC Trazodone HCl (Desyrel) 50 mg PRN QHS PRN PO INSOMNIA, MAY REPEAT X1 Last administered on 08/16/18at 20:01; Start 08/13/18 at 18:15 Lactobacillus Rhamnosus (Culturelle) 1 cap BID PO Last administered on at 19:55; Start 08/14/18 at 09:00 Sertraline HCl (Zoloft) 75 mg DAILY PO Last administered on 08/17/18at 08:15; Start 08/17/18 at 09:00 Active Scripts Active Reported Ventolin Hfa Inhaler (Albuterol Sulfate) 18 Gm Hfa.aer.ad 1 Puff IH Tramadol Hcl (Tramadol HCl) 50 Mg Tablet 50 Mg PO BID PRN Simvastatin 20 Mg Tablet 20 Mg PO HS Prednisone 20 Mg Tablet 20 Mg PO DAILY Prednisone 10 Mg Tablet 5 Mg PO DAILY Oxybutynin Chloride 5 Mg Tablet 5 Mg PO Nystatin 15 Gm Cream..g. 1 Applic TP PRN Metoprolol Tartrate 50 Mg Tablet 50 Mg PO BID Methotrexate (Methotrexate Sodium) 2.5 Mg Tablet 12.5 Mg PO WEEKLY Losartan Potassium 50 Mg Tablet 50 Mg PO BID Levothyroxine Sodium 200 Mcg Tablet 200 Mcg PO DAILYAC Incruse Ellipta (Umeclidinium [place]) 62.5 Mcg Blst.w.dev 62.5 Mcg IH Hydrochlorothiazide Tablet (Hydrochlorothiazide) 25 Mg Tablet 25 Mg PO DAILY Furosemide 20 Mg Tablet 20 Mg PO DAILY Brovana (Arformoterol Tartrate) 15 Mcg/2 Ml Vial.neb 15 Mcg IH BID Albuterol Sulfate Neb Soln (Albuterol Sulfate) 2.5 Mg/3 Ml Vial.neb 2.5 Mg NEB TID I have reviewed the current psychotropics carefully including drug interactions. Risk benefit ratio favors no change other than as noted in my dictated progress note. Diagnosis: Problems: (1) MDD (major depressive disorder) (2) Anxiety disorder (3) Dementia, vascular, with depression (4) Impulse control disorder LAURA HOLGUIN MD Aug 17, 2018 23:12
--- NOTE | 2018-08-17 23:15 | NUR ---
Behavior Intervention Response and Plan: BIRP Note: Behavior: Assumed Care of patient, patient located in Patient Room at shift change. Patient exhibited the following behavior Able to Focus on Task, Disorganized, Interactive. Brief assessment on rounds of vital signs, medication needs, lab studies, and pain. Treatment plan problems . Intervention: Patient assessed and the following interventions initiated safety checks 15 Minute Checks Head to toe Assessment , Cognitive Assessment , Medications. Response: After interactions and interventions patient responded in the following manner, Compliant , Cooperative ,Withdrawn. Continue to assess behaviors and condition will continue to monitor throughout the shift as needed. Patient educated on ADL's, and hand hygiene. 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 Continue to assess patient for changes in above assessment. Monitor for medication needs, pain, and safety concerns. Hourly rounding performed to ensure safe environment.
[2018-08-18] MEDS: ALBUTEROL SULFATE 2.5 MG/3 ML NEBU. NEB SCH ×4 (05:28→20:05)
[2018-08-18 05:50] VITALS: BP 113/69
[2018-08-18] MEDS: LEVOTHYROXINE 175 MCG TABLET PO SCH (06:09)
[2018-08-18] MEDS: LEVOTHYROXINE 50 MCG TABLET PO SCH (06:09)
[2018-08-18] MEDS: DOXYCYCLINE HYCLATE 100 MG TABLET PO SCH ×2 (07:51→20:19)
[2018-08-18] MEDS: SERTRALINE 50 MG TABLET. PO SCH (07:51)
[2018-08-18] MEDS: LACTOBACILLUS RHAMNOSUS GG 1 CAPSULE. PO SCH ×2 (07:51→20:18)
[2018-08-18] MEDS: LOSARTAN 50 MG TABLET. PO SCH ×2 (07:51→20:18)
[2018-08-18] MEDS: hydroCHLOROthiazide 25 MG TABLET PO SCH (07:51)
[2018-08-18] MEDS: predniSONE 10 MG TABLET PO SCH (07:52)
[2018-08-18] MEDS: FUROSEMIDE 20 MG TABLET PO SCH (07:52)
[2018-08-18] MEDS: METOPROLOL TART IMMED RELEASE 50 MG TABLET PO SCH ×2 (07:52→20:19)
[2018-08-18] MEDS: METHOTREXATE SODIUM 2.5 MG TABLET PO SCH (07:54)
--- NOTE | 2018-08-18 09:41 | NUR ---
Behavior Intervention Response and Plan: BIRP Note: Behavior: Assumed Care of patient, patient located in day room at shift change. Patient exhibited the following behavior Able to Focus on Task, Disorganized, Interactive. Brief assessment on rounds of vital signs, medication needs, lab studies, and pain. Treatment plan problems . Intervention: Patient assessed and the following interventions initiated safety checks 15 Minute Checks Head to toe Assessment , Cognitive Assessment , Medications. Response: After interactions and interventions patient responded in the following manner, Compliant , Cooperative ,Withdrawn. Continue to assess behaviors and condition will continue to monitor throughout the shift as needed. Patient educated on ADL's, and hand hygiene. 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 Continue to assess patient for changes in above assessment. Monitor for medication needs, pain, and safety concerns. Hourly rounding performed to ensure safe environment. Kyle OBRIEN
[2018-08-18 16:38] VITALS: BP 103/71
[2018-08-18] MEDS: RIVAROXABAN 15 MG TABLET. PO SCH (17:16)
[2018-08-18] MEDS: SIMVASTATIN 20 MG TABLET PO SCH (20:19)
[2018-08-18] MEDS: traZODone 50 MG TABLET. PO PRN (20:20)
--- NOTE | 2018-08-18 21:51 | NUR ---
Behavior Intervention Response and Plan: BIRP Note: Behavior: Assumed Care of patient, patient located in Day Room at shift change. Patient exhibited the following behavior Calm, Social, Cooperative. Brief assessment on rounds of vital signs, medication needs, lab studies, and pain. Treatment plan problems . Intervention: Patient assessed and the following interventions initiated safety checks 15 Minute Checks Personal Alarm in place , Cognitive Assessment , Head to toe Assessment. Response: After interactions and interventions patient responded in the following manner, Calm , Cooperative ,Compliant. Continue to assess behaviors and condition will continue to monitor throughout the shift as needed. Patient educated on ADL's, and hand hygiene. 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 Continue to assess patient for changes in above assessment. Monitor for medication needs, pain, and safety concerns. Hourly rounding performed to ensure safe environment.
--- NOTE | 2018-08-18 22:12 | PN ---
DATE: 08/17/2018 PSYCHIATRIC PROGRESS NOTE This late entry 08/17/2018 covers elements not covered in my initial note. SUBJECTIVE: I met with the patient in the evening. Overall, the patient slept 6-1/4 hours previous night. He has not been aggressive, seems more alert. REVIEW OF SYSTEMS: Ambulation impaired, in Broda chair. No CV, , pulmonary, eye, ENT system symptoms on review. Reliability poor. MENTAL STATUS EXAM: Oriented to herself. Insight, judgment, recent and remote memory, attention, concentration, fund of knowledge poor, consistent with his diagnosis mentioned in my initial note. IMPRESSION: Major depressive disorder, recurrent, in partial remission; cognitive disorder, unspecified; anxiety disorder, unspecified; hard of hearing. Impaired ambulation. PLAN: No change from initial note. Continue psychotropics mentioned in initial note. MAN Jason HOLGUIN MD DR: JENI/laina JOB#: [id number] / [id number]
--- NOTE | 2018-08-18 23:25 | PDOC ---
Exam Note: Cr Note: Please also refer to the separate dictated note~for this date of service dictated separately.~Patient seen individually. Discussed the patient with Nursing staff reviewed the chart.~Reviewed interim history and current functioning. Reviewed vital signs,~Labs/ Radiology~and current medications noted below. Continue current treatment with the changes noted in the dictated addendum note Assessment: Vital Signs: Vital Signs Date Time Temp Pulse Resp B/P (MAP) Pulse Ox O2 Delivery O2 Flow Rate FiO2 08/18/18 20:19 64 128/75 08/18/18 19:45 96 Room Air 08/18/18 16:38 98.0 20 08/17/18 20:18 2.0 I&O Intake and Output 08/18/18 07:00 Intake Total 1200 ml Balance 1200 ml Intake Oral 1200 ml Current Medications: Meds: Current Medications Acetaminophen (Tylenol) 650 mg PRN Q6HRS PRN PO PAIN / TEMP; Start 08/11/18 at 18:30 Multi-Ingredient Ointment (Analgesic [place]) 1 jonathan PRN QID PRN TP MUSCLE PAIN; Start 08/11/18 at 18:30 Al Hydroxide/Mg Hydroxide (Mylanta Plus Xs) 15 ml PRN AFTMEALHC PRN PO DYSPEPSIA; Start 08/11/18 at 18:30 Magnesium Hydroxide (Milk Of Magnesia) 2,400 mg PRN QHS PRN PO CONSTIPATION; Start 08/11/18 at 18:30 Olanzapine (ZyPREXA ZYDIS) 2.5 mg PRN Q2HR PRN PO PSYCHOSIS Last administered on 08/15/18at 09:24; Start 08/11/18 at 18:45 Tramadol HCl (Ultram) 50 mg PRN BID PRN PO PAIN; Start 08/11/18 at 20:00 Albuterol Sulfate (Ventolin) 2.5 mg QID NEB Last administered on 08/18/18at 20: 05; Start 08/11/18 at 21:00 Furosemide (Lasix) 20 mg DAILY PO Last administered on 08/18/18at 07:52; Start 08/12/18 at 09:00 Hydrochlorothiazide (Hydrodiuril) 25 mg DAILY PO Last administered on at 07:51; Start 08/12/18 at 09:00 Losartan Potassium (Cozaar) 50 mg BID PO Last administered on 08/18/18at 20:18 ; Start 08/11/18 at 21:00 Prednisone (Prednisone) 25 mg DAILY PO Last administered on 08/18/18at 07:52; Start 08/12/18 at 09:00 Prednisone (Prednisone) 20 mg DAILY PO ; Start 08/12/18 at 09:00; Stop at 09:00; Status DC Non-Formulary Medication (Arformoterol Tartrate (Brovana)) 15 mcg BID IH ; Start 08/11/18 at 21:00; Stop 08/11/18 at 21:00; Status DC Levothyroxine Sodium (Synthroid) 200 mcg DAILY06 PO Last administered on at 05:53; Start 08/12/18 at 06:00; Stop 08/13/18 at 15:08; Status DC Methotrexate (Rheumatrex) 12.5 mg WEEKLY PO Last administered on 08/18/18at 07: 54; Start 08/18/18 at 09:00 Metoprolol Tartrate (Lopressor) 50 mg BID PO Last administered on 08/18/18at 20 :19; Start 08/11/18 at 21:00 Simvastatin (Zocor) 20 mg HS PO Last administered on 08/18/18 20:19; Start 08/11/18 at 21:00 Sertraline HCl (Zoloft) 50 mg DAILY PO Last administered on 08/16/18at 08:03; Start 08/13/18 at 09:00; Stop 08/16/18 at 16:26; Status DC Levothyroxine Sodium (Synthroid) 175 mcg DAILY06 PO Last administered on at 06:09; Start 08/13/18 at 06:00 Levothyroxine Sodium (Synthroid) 50 mcg DAILY06 PO Last administered on at 06:09; Start 08/13/18 at 06:00 Rivaroxaban (Xarelto) 15 mg DAILYWSUP PO Last administered on 08/18/18at 17:16 ; Start 08/13/18 at 17:00 Vitamin D (Vitamin D3) 50,000 unit WEEKLY PO ; Start 08/19/18 at 09:00 Doxycycline Hyclate (Vibra-Tab) 100 mg BID PO Last administered on 08/18/18at 20:19; Start 08/13/18 at 21:00; Stop 08/23/18 at 20:59 Furosemide (Lasix) 20 mg 1X ONCE PO Last administered on 08/13/18at 15:40; Start 08/13/18 at 15:15; Stop 08/13/18 at 15:19; Status DC Potassium Chloride (Klor-Con) 20 meq 1X ONCE PO Last administered on at 15:40; Start 08/13/18 at 15:15; Stop 08/13/18 at 15:19; Status DC Trazodone HCl (Desyrel) 50 mg PRN QHS PRN PO INSOMNIA, MAY REPEAT X1 Last administered on 08/18/18at 20:20; Start 08/13/18 at 18:15 Lactobacillus Rhamnosus (Culturelle) 1 cap BID PO Last administered on at 20:18; Start 08/14/18 at 09:00 Sertraline HCl (Zoloft) 75 mg DAILY PO Last administered on 08/18/18at 07:51; Start 08/17/18 at 09:00 Active Scripts Active Reported Ventolin Hfa Inhaler (Albuterol Sulfate) 18 Gm Hfa.aer.ad 1 Puff IH Tramadol Hcl (Tramadol HCl) 50 Mg Tablet 50 Mg PO BID PRN Simvastatin 20 Mg Tablet 20 Mg PO HS Prednisone 20 Mg Tablet 20 Mg PO DAILY Prednisone 10 Mg Tablet 5 Mg PO DAILY Oxybutynin Chloride 5 Mg Tablet 5 Mg PO Nystatin 15 Gm Cream..g. 1 Applic TP PRN Metoprolol Tartrate 50 Mg Tablet 50 Mg PO BID Methotrexate (Methotrexate Sodium) 2.5 Mg Tablet 12.5 Mg PO WEEKLY Losartan Potassium 50 Mg Tablet 50 Mg PO BID Levothyroxine Sodium 200 Mcg Tablet 200 Mcg PO DAILYAC Incruse Ellipta (Umeclidinium [place]) 62.5 Mcg Blst.w.dev 62.5 Mcg IH Hydrochlorothiazide Tablet (Hydrochlorothiazide) 25 Mg Tablet 25 Mg PO DAILY Furosemide 20 Mg Tablet 20 Mg PO DAILY Brovana (Arformoterol Tartrate) 15 Mcg/2 Ml Vial.neb 15 Mcg IH BID Albuterol Sulfate Neb Soln (Albuterol Sulfate) 2.5 Mg/3 Ml Vial.neb 2.5 Mg NEB TID I have reviewed the current psychotropics carefully including drug interactions. Risk benefit ratio favors no change other than as noted in my dictated progress note. Diagnosis: Problems: (1) MDD (major depressive disorder) (2) Anxiety disorder (3) Dementia, vascular, with depression (4) Impulse control disorder LAURA HOLGUIN MD Aug 18, 2018 23:25
[2018-08-19] MEDS: ALBUTEROL SULFATE 2.5 MG/3 ML NEBU. NEB SCH ×4 (05:27→20:25)
[2018-08-19 05:45] VITALS: BP 150/93
[2018-08-19] MEDS: LEVOTHYROXINE 50 MCG TABLET PO SCH (06:08)
[2018-08-19] MEDS: LEVOTHYROXINE 175 MCG TABLET PO SCH (06:08)
[2018-08-19] MEDS: hydroCHLOROthiazide 25 MG TABLET PO SCH (08:20)
[2018-08-19] MEDS: LOSARTAN 50 MG TABLET. PO SCH ×2 (08:20→20:39)
[2018-08-19] MEDS: FUROSEMIDE 20 MG TABLET PO SCH (08:20)
[2018-08-19] MEDS: LACTOBACILLUS RHAMNOSUS GG 1 CAPSULE. PO SCH ×2 (08:20→20:39)
[2018-08-19] MEDS: DOXYCYCLINE HYCLATE 100 MG TABLET PO SCH ×2 (08:22→20:39)
[2018-08-19] MEDS: SERTRALINE 50 MG TABLET. PO SCH (08:22)
[2018-08-19] MEDS: predniSONE 10 MG TABLET PO SCH (08:22)
[2018-08-19] MEDS: METOPROLOL TART IMMED RELEASE 50 MG TABLET PO SCH ×2 (08:25→20:39)
[2018-08-19] MEDS: CHOLECALCIFEROL (VITAMIN D3) 50,000 UNIT CAPSULE PO SCH (08:25)
--- NOTE | 2018-08-19 09:00 | NUR ---
WEEKLY ACTIVITY THERAPY NOTE Date of Admission: 08/11/2018 Date of AT Assessment: 08/16/2018 Goal aimed: to increase time management and socialization Initial goal: Pt. will participate in at least five individual therapy activity engagements before discharge. Weekly progress towards goal: on track Group participation level: minimal Behaviors observed: Pt. was able to fully participate in one group this week (08/17 [facility] w/ Tariq); Pt. has difficulty engaging in some groups due to being [place] and seems to work best with visual directions and one on one prompting; Pt. is generally friendly and compliant with staff Plan: no change to goal; therapists encouraged to engage one on one whenever possible
--- NOTE | 2018-08-19 13:18 | NUR ---
Assumed care of pt @ approx 0700. Pt was sitting up in the Dining Room eating breakfast at the time of our initial encounter. Pt was very pleasant and cooperative. A/O to self and only. Compliant w/meds taken whole w/water. No signs of hallucinations, delusions, or paranoia noted. No inappropriate behaviors so far this shift. Pt sociable with the other pts and very pleasant to speak with. Confused but appears to be happy. Denies pain. No needs voiced @ this time. Will continue to monitor and assist pt in working towards his treatment and discharge goals.
[2018-08-19 16:12] VITALS: BP 108/61
[2018-08-19] MEDS: RIVAROXABAN 15 MG TABLET. PO SCH (17:02)
--- NOTE | 2018-08-19 17:10 | NUR ---
WEEKLY UPDATE: Pt dtr, Lois and son, Kris, participated in tx team via telephone. Pt has been very friendly towards staff and his peers. He is compliant with cares and appears to be eating/sleeping okay. Pt family questioned if pt would be appropriate to discharge home. DARIO discussed with the family the possibility of pt discharging to for more care and therapy options before that time, as he is not going to be capable of helping out at home. DARIO will look at options and contact pt dtr with those to aid in the discharge process.
[2018-08-19 20:38] VITALS: BP 148/98
[2018-08-19] MEDS: SIMVASTATIN 20 MG TABLET PO SCH (20:39)
--- NOTE | 2018-08-19 21:08 | PN ---
DATE: 08/18/2018 PSYCHIATRIC PROGRESS NOTE This late entry 08/18/2018 covers elements not covered in my initial note. SUBJECTIVE: I met with the patient in the evening. The patient slept reasonably previous evening. He is hard of hearing, frequently wanting phone to call his family. No behaviors noted, seems more alert. REVIEW OF SYSTEMS: Hard of hearing. No CV, , pulmonary, eye system symptoms on review. Gait unsteady in wheelchair/Broda chair. MENTAL STATUS EXAM: Oriented to himself and situation. Speech coherent, abstraction fair, computation impaired, language function intact, attention span short. Mood and affect remain somewhat anxious, labile. LABORATORY DATA: Reviewed. IMPRESSION: Major neurocognitive disorder, Alzheimer, vascular with delusion, depression, major depressive disorder with psychotic features; anxiety disorder, unspecified; impulse control disorder, unspecified. PLAN: Continue psychotropics from initial note. Adjust Zoloft further as clinically indicated. MAN Jason HOLGUIN MD DR: JENI/laina JOB#: [id number] / [id number]
--- NOTE | 2018-08-19 23:13 | PDOC ---
Exam Note: Cr Note: Please also refer to the separate dictated note~for this date of service dictated separately.~Patient seen individually. Discussed the patient with Nursing staff reviewed the chart.~Reviewed interim history and current functioning. Reviewed vital signs,~Labs/ Radiology~and current medications noted below. Continue current treatment with the changes noted in the dictated addendum note Assessment: Vital Signs: Vital Signs Date Time Temp Pulse Resp B/P (MAP) Pulse Ox O2 Delivery O2 Flow Rate FiO2 08/19/18 20:39 74 148/98 08/19/18 20:10 97 Room Air 08/19/18 16:12 97.8 20 08/17/18 20:18 2.0 I&O Intake and Output 08/19/18 07:00 Intake Total 1200 ml Balance 1200 ml Intake Oral 1200 ml # Bowel Movements 6 Current Medications: Meds: Current Medications Acetaminophen (Tylenol) 650 mg PRN Q6HRS PRN PO PAIN / TEMP; Start 08/11/18 at 18:30 Multi-Ingredient Ointment (Analgesic [place]) 1 jonathan PRN QID PRN TP MUSCLE PAIN; Start 08/11/18 at 18:30 Al Hydroxide/Mg Hydroxide (Mylanta Plus Xs) 15 ml PRN AFTMEALHC PRN PO DYSPEPSIA; Start 08/11/18 at 18:30 Magnesium Hydroxide (Milk Of Magnesia) 2,400 mg PRN QHS PRN PO CONSTIPATION; Start 08/11/18 at 18:30 Olanzapine (ZyPREXA ZYDIS) 2.5 mg PRN Q2HR PRN PO PSYCHOSIS Last administered on 08/15/18at 09:24; Start 08/11/18 at 18:45 Tramadol HCl (Ultram) 50 mg PRN BID PRN PO PAIN; Start 08/11/18 at 20:00 Albuterol Sulfate (Ventolin) 2.5 mg QID NEB Last administered on 08/19/18at 20: 25; Start 08/11/18 at 21:00 Furosemide (Lasix) 20 mg DAILY PO Last administered on 08/19/18at 08:20; Start 08/12/18 at 09:00 Hydrochlorothiazide (Hydrodiuril) 25 mg DAILY PO Last administered on at 08:20; Start 08/12/18 at 09:00 Losartan Potassium (Cozaar) 50 mg BID PO Last administered on 08/19/18at 20:39; Start 08/11/18 at 21:00 Prednisone (Prednisone) 25 mg DAILY PO Last administered on 08/19/18at 08:22; Start 08/12/18 at 09:00 Prednisone (Prednisone) 20 mg DAILY PO ; Start 08/12/18 at 09:00; Stop at 09:00; Status DC Non-Formulary Medication (Arformoterol Tartrate (Brovana)) 15 mcg BID IH ; Start 08/11/18 at 21:00; Stop 08/11/18 at 21:00; Status DC Levothyroxine Sodium (Synthroid) 200 mcg DAILY06 PO Last administered on at 05:53; Start 08/12/18 at 06:00; Stop 08/13/18 at 15:08; Status DC Methotrexate (Rheumatrex) 12.5 mg WEEKLY PO Last administered on 08/18/18at 07: 54; Start 08/18/18 at 09:00 Metoprolol Tartrate (Lopressor) 50 mg BID PO Last administered on 08/19/18at 20: 39; Start 08/11/18 at 21:00 Simvastatin (Zocor) 20 mg HS PO Last administered on 08/19/18at 20:39; Start at 21:00 Sertraline HCl (Zoloft) 50 mg DAILY PO Last administered on 08/16/18at 08:03; Start 08/13/18 at 09:00; Stop 08/16/18 at 16:26; Status DC Levothyroxine Sodium (Synthroid) 175 mcg DAILY06 PO Last administered on at 06:08; Start 08/13/18 at 06:00 Levothyroxine Sodium (Synthroid) 50 mcg DAILY06 PO Last administered on at 06:08; Start 08/13/18 at 06:00 Rivaroxaban (Xarelto) 15 mg DAILYWSUP PO Last administered on 08/19/18at 17:02; Start 08/13/18 at 17:00 Vitamin D (Vitamin D3) 50,000 unit WEEKLY PO Last administered on 08/19/18at 08: 25; Start 08/19/18 at 09:00 Doxycycline Hyclate (Vibra-Tab) 100 mg BID PO Last administered on 08/19/18at 20 :39; Start 08/13/18 at 21:00; Stop 08/23/18 at 20:59 Furosemide (Lasix) 20 mg 1X ONCE PO Last administered on 08/13/18at 15:40; Start 08/13/18 at 15:15; Stop 08/13/18 at 15:19; Status DC Potassium Chloride (Klor-Con) 20 meq 1X ONCE PO Last administered on at 15:40; Start 08/13/18 at 15:15; Stop 08/13/18 at 15:19; Status DC Trazodone HCl (Desyrel) 50 mg PRN QHS PRN PO INSOMNIA, MAY REPEAT X1 Last administered on 08/18/18at 20:20; Start 08/13/18 at 18:15 Lactobacillus Rhamnosus (Culturelle) 1 cap BID PO Last administered on at 20:39; Start 08/14/18 at 09:00 Sertraline HCl (Zoloft) 75 mg DAILY PO Last administered on 08/19/18at 08:22; Start 08/17/18 at 09:00 Active Scripts Active Reported Ventolin Hfa Inhaler (Albuterol Sulfate) 18 Gm Hfa.aer.ad 1 Puff IH Tramadol Hcl (Tramadol HCl) 50 Mg Tablet 50 Mg PO BID PRN Simvastatin 20 Mg Tablet 20 Mg PO HS Prednisone 20 Mg Tablet 20 Mg PO DAILY Prednisone 10 Mg Tablet 5 Mg PO DAILY Oxybutynin Chloride 5 Mg Tablet 5 Mg PO Nystatin 15 Gm Cream..g. 1 Applic TP PRN Metoprolol Tartrate 50 Mg Tablet 50 Mg PO BID Methotrexate (Methotrexate Sodium) 2.5 Mg Tablet 12.5 Mg PO WEEKLY Losartan Potassium 50 Mg Tablet 50 Mg PO BID Levothyroxine Sodium 200 Mcg Tablet 200 Mcg PO DAILYAC Incruse Ellipta (Umeclidinium [place]) 62.5 Mcg Blst.w.dev 62.5 Mcg IH Hydrochlorothiazide Tablet (Hydrochlorothiazide) 25 Mg Tablet 25 Mg PO DAILY Furosemide 20 Mg Tablet 20 Mg PO DAILY Brovana (Arformoterol Tartrate) 15 Mcg/2 Ml Vial.neb 15 Mcg IH BID Albuterol Sulfate Neb Soln (Albuterol Sulfate) 2.5 Mg/3 Ml Vial.neb 2.5 Mg NEB TID I have reviewed the current psychotropics carefully including drug interactions. Risk benefit ratio favors no change other than as noted in my dictated progress note. Diagnosis: Problems: (1) MDD (major depressive disorder) (2) Anxiety disorder (3) Dementia, vascular, with depression (4) Impulse control disorder LAURA HOLGUIN MD Aug 19, 2018 23:13
--- NOTE | 2018-08-19 23:58 | NUR ---
Pt sitting calmly in dayroom at shift change, interacting with staff and peers. Compliant with HS medications and assessment. No adverse behaviors noted.
[2018-08-20] MEDS: LEVOTHYROXINE 50 MCG TABLET PO SCH (05:19)
[2018-08-20] MEDS: LEVOTHYROXINE 175 MCG TABLET PO SCH (05:19)
[2018-08-20] MEDS: ALBUTEROL SULFATE 2.5 MG/3 ML NEBU. NEB SCH ×4 (05:27→20:06)
[2018-08-20 06:23] VITALS: BP 119/80
[2018-08-20 07:31] LABS: BASO % 0 % (0-3); EOS % 0 % (0-3); HEMATOCRIT 37.1 % (39.0-53.0); HEMOGLOBIN 12.3 g/dL (13.0-17.5); LYMPH # 1.2 x10^3/uL (1.0-4.8); LYMPH % 11 % (24-48); MEAN CORPUSCULAR HEMOGLOBIN 30 pg (25-35); MEAN CORPUSCULAR HGB CONC 33 g/dL (31-37); MEAN CORPUSCULAR VOLUME 91 fL (79-100); MONO # 0.6 x10^3/uL (0.0-1.1); MONO % 5 % (0-9); NEUT # 9.3 x10^3uL (1.8-7.7); NEUT % 84 % (31-73); PLATELET COUNT 222 x10^3/uL (140-400); RED CELL DISTRIBUTION WIDTH 15.1 % (11.5-14.5); WHITE BLOOD COUNT 11.1 x10^3/uL (4.0-11.0)
[2018-08-20 07:44] LABS: ALBUMIN 2.9 g/dL (3.4-5.0); ALBUMIN/GLOBULIN RATIO 0.8 (1.0-1.7); CALCIUM 8.6 mg/dL (8.5-10.1); CREATININE 1.6 mg/dL (0.7-1.3); GFR 41.6; POTASSIUM 3.9 mmol/L (3.5-5.1); TOTAL BILIRUBIN 0.5 mg/dL (0.2-1.0); TOTAL PROTEIN 6.5 g/dL (6.4-8.2)
[2018-08-20] MEDS: LACTOBACILLUS RHAMNOSUS GG 1 CAPSULE. PO SCH ×2 (09:19→20:49)
[2018-08-20] MEDS: LOSARTAN 50 MG TABLET. PO SCH ×2 (09:19→20:35)
[2018-08-20] MEDS: hydroCHLOROthiazide 25 MG TABLET PO SCH (09:19)
[2018-08-20] MEDS: FUROSEMIDE 20 MG TABLET PO SCH (09:19)
[2018-08-20] MEDS: METOPROLOL TART IMMED RELEASE 50 MG TABLET PO SCH ×2 (09:20→20:48)
[2018-08-20] MEDS: DOXYCYCLINE HYCLATE 100 MG TABLET PO SCH ×2 (09:21→20:35)
[2018-08-20] MEDS: SERTRALINE 50 MG TABLET. PO SCH (09:21)
[2018-08-20] MEDS: predniSONE 10 MG TABLET PO SCH (09:21)
--- NOTE | 2018-08-20 14:01 | NUR ---
Assumed care of pt @ approx 0700. Pt was sitting up in the Dining Room eating breakfast at the time of our initial encounter. Pt was very pleasant and cooperative. A/O to self and only. Compliant w/meds taken whole w/water. No signs of hallucinations, delusions, or paranoia noted. No inappropriate behaviors so far this shift. Pt sociable with the other pts and very pleasant to speak with. Confused but appears to be happy. Denies pain. Was allowed to make a phone call to his this a.m. Is asking to speak with Dr. Driver this evening about a Dr. Serra, but he couldn't explain to me who this physician is. I advised him that he can speak with Dr. Driver about this when he makes rounds this evening. The pt verbalized understanding. No other needs voiced @ this time. Will continue to monitor and assist pt in working towards his treatment and discharge goals.
[2018-08-20 15:52] VITALS: BP 146/87
[2018-08-20] MEDS: RIVAROXABAN 15 MG TABLET. PO SCH (17:29)
[2018-08-20] MEDS: SIMVASTATIN 20 MG TABLET PO SCH (20:49)
--- NOTE | 2018-08-20 22:08 | PN ---
DATE: 08/19/2018 PSYCHIATRIC PROGRESS NOTE This late entry 08/19/2018 covers elements not covered in my initial note. SUBJECTIVE: I met with the patient in the evening. The patient slept 7-3/4 hours previous night. The patient was staffed at a treatment team meeting with the entire team in the morning. The patient's daughter, Lois and son, Dominic attended the conference. Reviewed his history at length that he was quite functional until very recently. He was perhaps getting forgetful, confused, but was able to use his reserves adequately until the most recent incident. Currently, he remains oriented to himself, date of , remains hard of hearing, impaired ambulation, in wheelchair. Slept 7-3/4 hours previous evening. REVIEW OF SYSTEMS: No CV, , GI, eye system symptoms on review. MENTAL STATUS EXAM: Oriented as noted. Speech has some latency, often responses monosyllabic. Abstraction fair, computation impaired, language function intact, attention span short. Mood and affect somewhat anxious, labile at times. CT head shows cortical atrophy, but no acute changes. IMPRESSION: Unchanged from initial note. PLAN: No change from initial note. Family is looking at assisted care closer to their place in [place]. Social service staff is coordinating this. LAURA HOLGUIN MD DR: JENI/laina JOB#: [id number] / [id number]
--- NOTE | 2018-08-20 23:10 | PDOC ---
Exam Note: Cr Note: Please also refer to the separate dictated note~for this date of service dictated separately.~Patient seen individually. Discussed the patient with Nursing staff reviewed the chart.~Reviewed interim history and current functioning. Reviewed vital signs,~Labs/ Radiology~and current medications noted below. Continue current treatment with the changes noted in the dictated addendum note Assessment: Vital Signs: Vital Signs Date Time Temp Pulse Resp B/P (MAP) Pulse Ox O2 Delivery O2 Flow Rate FiO2 08/20/18 20:48 70 146/87 08/20/18 20:05 96 Room Air 08/20/18 15:52 97.6 16 08/17/18 20:18 2.0 I&O Intake and Output 08/20/18 07:00 Intake Total 1440 ml Balance 1440 ml Intake Oral 1440 ml # Voids 1 # Bowel Movements 1 Labs: Laboratory Tests Test 08/20/18 06:50 White Blood Count 11.1 x10^3/uL (4.0-11.0) H Red Blood Count 4.10 x10^6/uL (4.30-5.70) L Hemoglobin 12.3 g/dL (13.0-17.5) L Hematocrit 37.1 % (39.0-53.0) L Mean Corpuscular Volume 91 fL (79-100) Mean Corpuscular Hemoglobin 30 pg (25-35) Mean Corpuscular Hemoglobin Concent 33 g/dL (31-37) Red Cell Distribution Width 15.1 % (11.5-14.5) H Platelet Count 222 x10^3/uL (140-400) Neutrophils (%) (Auto) 84 % (31-73) H Lymphocytes (%) (Auto) 11 % (24-48) L Monocytes (%) (Auto) 5 % (0-9) Eosinophils (%) (Auto) 0 % (0-3) Basophils (%) (Auto) 0 % (0-3) Neutrophils # (Auto) 9.3 x10^3uL (1.8-7.7) H Lymphocytes # (Auto) 1.2 x10^3/uL (1.0-4.8) Monocytes # (Auto) 0.6 x10^3/uL (0.0-1.1) Eosinophils # (Auto) 0.0 x10^3/uL (0.0-0.7) Basophils # (Auto) 0.0 x10^3/uL (0.0-0.2) Sodium Level 137 mmol/L (136-145) Potassium Level 3.9 mmol/L (3.5-5.1) Chloride Level 100 mmol/L (98-107) Carbon Dioxide Level 31 mmol/L (21-32) Anion Gap 6 (6-14) Blood Urea Nitrogen 56 mg/dL (8-26) H Creatinine 1.6 mg/dL (0.7-1.3) H Estimated GFR (Cockcroft-Gault) 41.6 BUN/Creatinine Ratio 35 (6-20) H Glucose Level 100 mg/dL (70-99) H Calcium Level 8.6 mg/dL (8.5-10.1) Total Bilirubin 0.5 mg/dL (0.2-1.0) Aspartate Amino Transferase (AST) 45 U/L (15-37) H Alanine Aminotransferase (ALT) 85 U/L (16-63) H Alkaline Phosphatase 51 U/L (46-116) Total Protein 6.5 g/dL (6.4-8.2) Albumin 2.9 g/dL (3.4-5.0) L Albumin/Globulin Ratio 0.8 (1.0-1.7) L Current Medications: Meds: Current Medications Acetaminophen (Tylenol) 650 mg PRN Q6HRS PRN PO PAIN / TEMP; Start 08/11/18 at 18:30 Multi-Ingredient Ointment (Analgesic [place]) 1 jonathan PRN QID PRN TP MUSCLE PAIN; Start 08/11/18 at 18:30 Al Hydroxide/Mg Hydroxide (Mylanta Plus Xs) 15 ml PRN AFTMEALHC PRN PO DYSPEPSIA; Start 08/11/18 at 18:30 Magnesium Hydroxide (Milk Of Magnesia) 2,400 mg PRN QHS PRN PO CONSTIPATION; Start 08/11/18 at 18:30 Olanzapine (ZyPREXA ZYDIS) 2.5 mg PRN Q2HR PRN PO PSYCHOSIS Last administered on 08/15/18at 09:24; Start 08/11/18 at 18:45 Tramadol HCl (Ultram) 50 mg PRN BID PRN PO PAIN; Start 08/11/18 at 20:00 Albuterol Sulfate (Ventolin) 2.5 mg QID NEB Last administered on 08/20/18at 20: 06; Start 08/11/18 at 21:00 Furosemide (Lasix) 20 mg DAILY PO Last administered on 08/20/18at 09:19; Start 08/12/18 at 09:00 Hydrochlorothiazide (Hydrodiuril) 25 mg DAILY PO Last administered on at 09:19; Start 08/12/18 at 09:00 Losartan Potassium (Cozaar) 50 mg BID PO Last administered on 08/20/18at 20:35; Start 08/11/18 at 21:00 Prednisone (Prednisone) 25 mg DAILY PO Last administered on 08/20/18 09:21; Start 08/12/18 at 09:00 Prednisone (Prednisone) 20 mg DAILY PO ; Start 08/12/18 at 09:00; Stop at 09:00; Status DC Non-Formulary Medication (Arformoterol Tartrate (Brovana)) 15 mcg BID IH ; Start 08/11/18 at 21:00; Stop 08/11/18 at 21:00; Status DC Levothyroxine Sodium (Synthroid) 200 mcg DAILY06 PO Last administered on at 05:53; Start 08/12/18 at 06:00; Stop 08/13/18 at 15:08; Status DC Methotrexate (Rheumatrex) 12.5 mg WEEKLY PO Last administered on 08/18/18at 07: 54; Start 08/18/18 at 09:00 Metoprolol Tartrate (Lopressor) 50 mg BID PO Last administered on 08/20/18at 20: 48; Start 08/11/18 at 21:00 Simvastatin (Zocor) 20 mg HS PO Last administered on 08/20/18at 20:49; Start at 21:00 Sertraline HCl (Zoloft) 50 mg DAILY PO Last administered on 08/16/18at 08:03; Start 08/13/18 at 09:00; Stop 08/16/18 at 16:26; Status DC Levothyroxine Sodium (Synthroid) 175 mcg DAILY06 PO Last administered on at 05:19; Start 08/13/18 at 06:00 Levothyroxine Sodium (Synthroid) 50 mcg DAILY06 PO Last administered on 05:19; Start 08/13/18 at 06:00 Rivaroxaban (Xarelto) 15 mg DAILYWSUP PO Last administered on 08/20/18at 17:29; Start 08/13/18 at 17:00 Vitamin D (Vitamin D3) 50,000 unit WEEKLY PO Last administered on 08/19/18at 08: 25; Start 08/19/18 at 09:00 Doxycycline Hyclate (Vibra-Tab) 100 mg BID PO Last administered on 08/20/18at 20 :35; Start 08/13/18 at 21:00; Stop 08/23/18 at 20:59 Furosemide (Lasix) 20 mg 1X ONCE PO Last administered on 08/13/18at 15:40; Start 08/13/18 at 15:15; Stop 08/13/18 at 15:19; Status DC Potassium Chloride (Klor-Con) 20 meq 1X ONCE PO Last administered on at 15:40; Start 08/13/18 at 15:15; Stop 08/13/18 at 15:19; Status DC Trazodone HCl (Desyrel) 50 mg PRN QHS PRN PO INSOMNIA, MAY REPEAT X1 Last administered on 08/18/18at 20:20; Start 08/13/18 at 18:15 Lactobacillus Rhamnosus (Culturelle) 1 cap BID PO Last administered on at 20:49; Start 08/14/18 at 09:00 Sertraline HCl (Zoloft) 75 mg DAILY PO Last administered on 08/20/18at 09:21; Start 08/17/18 at 09:00 Active Scripts Active Reported Ventolin Hfa Inhaler (Albuterol Sulfate) 18 Gm Hfa.aer.ad 1 Puff IH Tramadol Hcl (Tramadol HCl) 50 Mg Tablet 50 Mg PO BID PRN Simvastatin 20 Mg Tablet 20 Mg PO HS Prednisone 20 Mg Tablet 20 Mg PO DAILY Prednisone 10 Mg Tablet 5 Mg PO DAILY Oxybutynin Chloride 5 Mg Tablet 5 Mg PO Nystatin 15 Gm Cream..g. 1 Applic TP PRN Metoprolol Tartrate 50 Mg Tablet 50 Mg PO BID Methotrexate (Methotrexate Sodium) 2.5 Mg Tablet 12.5 Mg PO WEEKLY Losartan Potassium 50 Mg Tablet 50 Mg PO BID Levothyroxine Sodium 200 Mcg Tablet 200 Mcg PO DAILYAC Incruse Ellipta (Umeclidinium [place]) 62.5 Mcg Blst.w.dev 62.5 Mcg IH Hydrochlorothiazide Tablet (Hydrochlorothiazide) 25 Mg Tablet 25 Mg PO DAILY Furosemide 20 Mg Tablet 20 Mg PO DAILY Brovana (Arformoterol Tartrate) 15 Mcg/2 Ml Vial.neb 15 Mcg IH BID Albuterol Sulfate Neb Soln (Albuterol Sulfate) 2.5 Mg/3 Ml Vial.neb 2.5 Mg NEB TID I have reviewed the current psychotropics carefully including drug interactions. Risk benefit ratio favors no change other than as noted in my dictated progress note. Diagnosis: Problems: (1) MDD (major depressive disorder) (2) Anxiety disorder (3) Dementia, vascular, with depression (4) Impulse control disorder LAURA HOLGUIN MD Aug 20, 2018 23:10
--- NOTE | 2018-08-21 02:05 | NUR ---
Behavior Intervention Response and Plan: BIRP Note: Behavior: Assumed Care of patient, patient located in Patient Room at shift change. Patient exhibited the following behavior Able to Focus on Task, Disorganized, Interactive. Brief assessment on rounds of vital signs, medication needs, lab studies, and pain. Treatment plan problems. Intervention: Patient assessed and the following interventions initiated safety checks 15 Minute Checks Head to toe Assessment, Cognitive Assessment, Medications. Response: After interactions and interventions patient responded in the following manner, Compliant, Cooperative, Withdrawn. Continue to assess behaviors and condition will continue to monitor throughout the shift as needed. Patient educated on ADL's, and hand hygiene. Plan: Continue to monitor Master Treatment Plan for patient's progress toward short term goals of Improved Mood, Decreased Agitation, guidance consultant goals to return to previous living setting vs placement. Continue to assess patient for changes in above assessment. Monitor for medication needs, pain, and safety concerns. Hourly rounding performed to ensure safe environment.
[2018-08-21] MEDS: LEVOTHYROXINE 50 MCG TABLET PO SCH (05:15)
[2018-08-21] MEDS: LEVOTHYROXINE 175 MCG TABLET PO SCH (05:16)
[2018-08-21] MEDS: ALBUTEROL SULFATE 2.5 MG/3 ML NEBU. NEB SCH ×4 (05:16→20:48)
[2018-08-21 06:07] VITALS: BP 114/70
[2018-08-21] MEDS: FUROSEMIDE 20 MG TABLET PO SCH (08:13)
[2018-08-21] MEDS: SERTRALINE 50 MG TABLET. PO SCH (08:14)
[2018-08-21] MEDS: LOSARTAN 50 MG TABLET. PO SCH ×2 (08:14→19:38)
[2018-08-21] MEDS: METOPROLOL TART IMMED RELEASE 50 MG TABLET PO SCH ×2 (08:14→19:38)
[2018-08-21] MEDS: DOXYCYCLINE HYCLATE 100 MG TABLET PO SCH ×2 (08:15→19:38)
[2018-08-21] MEDS: hydroCHLOROthiazide 25 MG TABLET PO SCH (08:15)
[2018-08-21] MEDS: predniSONE 10 MG TABLET PO SCH (08:16)
[2018-08-21] MEDS: LACTOBACILLUS RHAMNOSUS GG 1 CAPSULE. PO SCH ×2 (08:16→19:38)
[2018-08-21 15:56] VITALS: BP 103/66
[2018-08-21] MEDS: RIVAROXABAN 15 MG TABLET. PO SCH (16:45)
[2018-08-21 19:34] VITALS: BP 135/76
[2018-08-21] MEDS: SIMVASTATIN 20 MG TABLET PO SCH (19:38)
--- NOTE | 2018-08-21 23:14 | PDOC ---
Exam Note: Cr Note: Please also refer to the separate dictated note~for this date of service dictated separately.~Patient seen individually. Discussed the patient with Nursing staff reviewed the chart.~Reviewed interim history and current functioning. Reviewed vital signs,~Labs/ Radiology~and current medications noted below. Continue current treatment with the changes noted in the dictated addendum note Assessment: Vital Signs: Vital Signs Date Time Temp Pulse Resp B/P (MAP) Pulse Ox O2 Delivery O2 Flow Rate FiO2 08/21/18 20:50 97 Room Air 08/21/18 19:38 78 135/76 08/21/18 19:34 18 08/21/18 15:56 97.8 08/17/18 20:18 2.0 I&O Intake and Output 08/21/18 07:00 Intake Total 1320 ml Balance 1320 ml Intake Oral 1320 ml # Voids 4 # Bowel Movements 1 Current Medications: Meds: Current Medications Acetaminophen (Tylenol) 650 mg PRN Q6HRS PRN PO PAIN / TEMP; Start 08/11/18 at 18:30 Multi-Ingredient Ointment (Analgesic [place]) 1 jonathan PRN QID PRN TP MUSCLE PAIN; Start 08/11/18 at 18:30 Al Hydroxide/Mg Hydroxide (Mylanta Plus Xs) 15 ml PRN AFTMEALHC PRN PO DYSPEPSIA; Start 08/11/18 at 18:30 Magnesium Hydroxide (Milk Of Magnesia) 2,400 mg PRN QHS PRN PO CONSTIPATION; Start 08/11/18 at 18:30 Olanzapine (ZyPREXA ZYDIS) 2.5 mg PRN Q2HR PRN PO PSYCHOSIS Last administered on 08/15/18at 09:24; Start 08/11/18 at 18:45 Tramadol HCl (Ultram) 50 mg PRN BID PRN PO PAIN; Start 08/11/18 at 20:00 Albuterol Sulfate (Ventolin) 2.5 mg QID NEB Last administered on 08/21/18at 20: 48; Start 08/11/18 at 21:00 Furosemide (Lasix) 20 mg DAILY PO Last administered on 08/21/18at 08:13; Start 08/12/18 at 09:00 Hydrochlorothiazide (Hydrodiuril) 25 mg DAILY PO Last administered on at 08:15; Start 08/12/18 at 09:00 Losartan Potassium (Cozaar) 50 mg BID PO Last administered on 08/21/18 19:38; Start 08/11/18 at 21:00 Prednisone (Prednisone) 25 mg DAILY PO Last administered on 08/21/18at 08:16; Start 08/12/18 at 09:00 Prednisone (Prednisone) 20 mg DAILY PO ; Start 08/12/18 at 09:00; Stop at 09:00; Status DC Non-Formulary Medication (Arformoterol Tartrate (Brovana)) 15 mcg BID IH ; Start 08/11/18 at 21:00; Stop 08/11/18 at 21:00; Status DC Levothyroxine Sodium (Synthroid) 200 mcg DAILY06 PO Last administered on at 05:53; Start 08/12/18 at 06:00; Stop 08/13/18 at 15:08; Status DC Methotrexate (Rheumatrex) 12.5 mg WEEKLY PO Last administered on 08/18/18at 07: 54; Start 08/18/18 at 09:00 Metoprolol Tartrate (Lopressor) 50 mg BID PO Last administered on 08/21/18at 19: 38; Start 08/11/18 at 21:00 Simvastatin (Zocor) 20 mg HS PO Last administered on 08/21/18at 19:38; Start at 21:00 Sertraline HCl (Zoloft) 50 mg DAILY PO Last administered on 08/16/18at 08:03; Start 08/13/18 at 09:00; Stop 08/16/18 at 16:26; Status DC Levothyroxine Sodium (Synthroid) 175 mcg DAILY06 PO Last administered on 05:16; Start 08/13/18 at 06:00 Levothyroxine Sodium (Synthroid) 50 mcg DAILY06 PO Last administered on at 05:15; Start 08/13/18 at 06:00 Rivaroxaban (Xarelto) 15 mg DAILYWSUP PO Last administered on 08/21/18at 16:45; Start 08/13/18 at 17:00 Vitamin D (Vitamin D3) 50,000 unit WEEKLY PO Last administered on 08/19/18at 08: 25; Start 08/19/18 at 09:00 Doxycycline Hyclate (Vibra-Tab) 100 mg BID PO Last administered on 08/21/18at 19 :38; Start 08/13/18 at 21:00; Stop 08/23/18 at 20:59 Furosemide (Lasix) 20 mg 1X ONCE PO Last administered on 08/13/18at 15:40; Start 08/13/18 at 15:15; Stop 08/13/18 at 15:19; Status DC Potassium Chloride (Klor-Con) 20 meq 1X ONCE PO Last administered on at 15:40; Start 08/13/18 at 15:15; Stop 08/13/18 at 15:19; Status DC Trazodone HCl (Desyrel) 50 mg PRN QHS PRN PO INSOMNIA, MAY REPEAT X1 Last administered on 08/18/18at 20:20; Start 08/13/18 at 18:15 Lactobacillus Rhamnosus (Culturelle) 1 cap BID PO Last administered on at 19:38; Start 08/14/18 at 09:00 Sertraline HCl (Zoloft) 75 mg DAILY PO Last administered on 08/21/18at 08:14; Start 08/17/18 at 09:00 Active Scripts Active Reported Ventolin Hfa Inhaler (Albuterol Sulfate) 18 Gm Hfa.aer.ad 1 Puff IH Tramadol Hcl (Tramadol HCl) 50 Mg Tablet 50 Mg PO BID PRN Simvastatin 20 Mg Tablet 20 Mg PO HS Prednisone 20 Mg Tablet 20 Mg PO DAILY Prednisone 10 Mg Tablet 5 Mg PO DAILY Oxybutynin Chloride 5 Mg Tablet 5 Mg PO Nystatin 15 Gm Cream..g. 1 Applic TP PRN Metoprolol Tartrate 50 Mg Tablet 50 Mg PO BID Methotrexate (Methotrexate Sodium) 2.5 Mg Tablet 12.5 Mg PO WEEKLY Losartan Potassium 50 Mg Tablet 50 Mg PO BID Levothyroxine Sodium 200 Mcg Tablet 200 Mcg PO DAILYAC Incruse Ellipta (Umeclidinium [place]) 62.5 Mcg Blst.w.dev 62.5 Mcg IH Hydrochlorothiazide Tablet (Hydrochlorothiazide) 25 Mg Tablet 25 Mg PO DAILY Furosemide 20 Mg Tablet 20 Mg PO DAILY Brovana (Arformoterol Tartrate) 15 Mcg/2 Ml Vial.neb 15 Mcg IH BID Albuterol Sulfate Neb Soln (Albuterol Sulfate) 2.5 Mg/3 Ml Vial.neb 2.5 Mg NEB TID I have reviewed the current psychotropics carefully including drug interactions. Risk benefit ratio favors no change other than as noted in my dictated progress note. Diagnosis: Problems: (1) MDD (major depressive disorder) (2) Anxiety disorder (3) Dementia, vascular, with depression (4) Impulse control disorder LAURA HOLGUIN MD Aug 21, 2018 23:14
[2018-08-22] MEDS: traZODone 50 MG TABLET. PO PRN (01:08)
--- NOTE | 2018-08-22 01:22 | NUR ---
Behavior Intervention Response and Plan: BIRP Note: Behavior: Assumed Care of patient, patient located in Day Room at shift change. Patient exhibited the following behavior Calm, Interactive, Social. Brief assessment on rounds of vital signs, medication needs, lab studies, and pain. Treatment plan problems 1 and 2. Intervention: Patient assessed and the following interventions initiated safety checks 15 Minute Checks Cognitive Assessment , Head to toe Assessment , Medications. Response: After interactions and interventions patient responded in the following manner, Calm , Compliant ,Cooperative. Continue to assess behaviors and condition will continue to monitor throughout the shift as needed. Patient educated on ADL's, and hand hygiene. Plan: Continue to monitor Master Treatment Plan for patient's progress toward short term goals of Decreased Agitation, Decreased Aggression, senior living goals to return to previous living setting vs placement. Continue to assess patient for changes in above assessment. Monitor for medication needs, pain, and safety concerns. Hourly rounding performed to ensure safe environment.
--- NOTE | 2018-08-22 01:23 | NUR ---
Pt restless, having difficulty falling asleep. PRN Trazodone administered as ordered.
[2018-08-22] MEDS: LEVOTHYROXINE 50 MCG TABLET PO SCH (05:04)
[2018-08-22] MEDS: LEVOTHYROXINE 175 MCG TABLET PO SCH (05:04)
[2018-08-22] MEDS: ALBUTEROL SULFATE 2.5 MG/3 ML NEBU. NEB SCH ×4 (05:27→20:54)
[2018-08-22 06:12] VITALS: BP 128/70
[2018-08-22] MEDS: predniSONE 10 MG TABLET PO SCH (08:20)
[2018-08-22] MEDS: LOSARTAN 50 MG TABLET. PO SCH ×2 (08:20→20:26)
[2018-08-22] MEDS: hydroCHLOROthiazide 25 MG TABLET PO SCH (08:21)
[2018-08-22] MEDS: LACTOBACILLUS RHAMNOSUS GG 1 CAPSULE. PO SCH ×2 (08:21→20:24)
[2018-08-22] MEDS: FUROSEMIDE 20 MG TABLET PO SCH (08:21)
[2018-08-22] MEDS: METOPROLOL TART IMMED RELEASE 50 MG TABLET PO SCH ×2 (08:21→20:27)
[2018-08-22] MEDS: SERTRALINE 50 MG TABLET. PO SCH (08:21)
[2018-08-22] MEDS: DOXYCYCLINE HYCLATE 100 MG TABLET PO SCH ×2 (08:21→20:24)
--- NOTE | 2018-08-22 10:59 | NUR ---
Behavior Intervention Response and Plan: BIRP Note: Behavior: Assumed Care of patient, patient located in Patient Room at shift change. Patient exhibited the following behavior Able to Focus on Task, cooperative, Interactive. Brief assessment on rounds of vital signs, medication needs, lab studies, and pain. Treatment plan problems. Intervention: Patient assessed and the following interventions initiated safety checks 15 Minute Checks Head to toe Assessment, Cognitive Assessment, Medications. Response: After interactions and interventions patient responded in the following manner, interactive, Cooperative, calm. Continue to assess behaviors and condition will continue to monitor throughout the shift as needed. Patient educated on ADL's, and hand hygiene. Plan: Continue to monitor Master Treatment Plan for patient's progress toward short term goals of Improved Mood, Decreased Agitation, intermediate card tender goals to return to previous living setting vs placement. Continue to assess patient for changes in above assessment. Monitor for medication needs, pain, and safety concerns. Hourly rounding performed to ensure safe environment.
[2018-08-22 15:53] VITALS: BP 133/79
--- NOTE | 2018-08-22 16:37 | PN ---
DATE: 08/20/2018 This is a late entry for date of service 08/20/2018 and covers elements not covered in my initial note. SUBJECTIVE: I met with the patient in the evening. The patient slept 5-3/4 hours previous evening. There has not been any behavioral problems, quite friendly, compliant with medication, takes his medications whole. REVIEW OF SYSTEMS: Ambulation impaired, in wheelchair, hard of hearing with hearing aids. No CV, , pulmonary, eye system symptoms on review. MENTAL STATUS EXAM: Oriented to himself and situation. Speech has some latency, coherent, can be loud at times. Abstraction fair, computation impaired, language function intact, attention span short. Mood and affect less anxious and less labile. LABORATORY DATA: Reviewed. IMPRESSION: Major depressive disorder, recurrent; delirium due to general medical condition, seems to be resolving; hard of hearing; anxiety disorder, unspecified; impulse control disorder, unspecified. PLAN: No change from initial note. MAN Jason HOLGUIN MD DR: JENI/laina JOB#: [id number] / [id number]
[2018-08-22] MEDS: RIVAROXABAN 15 MG TABLET. PO SCH (17:12)
[2018-08-22 20:22] VITALS: BP 114/66
[2018-08-22] MEDS: SIMVASTATIN 20 MG TABLET PO SCH (20:24)
--- NOTE | 2018-08-22 23:13 | PDOC ---
Exam Note: Cr Note: Please also refer to the separate dictated note~for this date of service dictated separately.~Patient seen individually. Discussed the patient with Nursing staff reviewed the chart.~Reviewed interim history and current functioning. Reviewed vital signs,~Labs/ Radiology~and current medications noted below. Continue current treatment with the changes noted in the dictated addendum note Assessment: Vital Signs: Vital Signs Date Time Temp Pulse Resp B/P (MAP) Pulse Ox O2 Delivery O2 Flow Rate FiO2 08/22/18 20:55 96 Room Air 08/22/18 20:27 88 114/66 08/22/18 15:53 97.9 18 08/17/18 20:18 2.0 I&O Intake and Output 08/22/18 07:00 Intake Total 1200 ml Balance 1200 ml Intake Oral 1200 ml # Bowel Movements 1 Current Medications: Meds: Current Medications Acetaminophen (Tylenol) 650 mg PRN Q6HRS PRN PO PAIN / TEMP; Start 08/11/18 at 18:30 Multi-Ingredient Ointment (Analgesic [place]) 1 jonathan PRN QID PRN TP MUSCLE PAIN; Start 08/11/18 at 18:30 Al Hydroxide/Mg Hydroxide (Mylanta Plus Xs) 15 ml PRN AFTMEALHC PRN PO DYSPEPSIA; Start 08/11/18 at 18:30 Magnesium Hydroxide (Milk Of Magnesia) 2,400 mg PRN QHS PRN PO CONSTIPATION; Start 08/11/18 at 18:30 Olanzapine (ZyPREXA ZYDIS) 2.5 mg PRN Q2HR PRN PO PSYCHOSIS Last administered on 08/15/18at 09:24; Start 08/11/18 at 18:45 Tramadol HCl (Ultram) 50 mg PRN BID PRN PO PAIN; Start 08/11/18 at 20:00 Albuterol Sulfate (Ventolin) 2.5 mg QID NEB Last administered on 08/22/18at 20: 54; Start 08/11/18 at 21:00 Furosemide (Lasix) 20 mg DAILY PO Last administered on 08/22/18at 08:21; Start 08/12/18 at 09:00 Hydrochlorothiazide (Hydrodiuril) 25 mg DAILY PO Last administered on at 08:21; Start 08/12/18 at 09:00 Losartan Potassium (Cozaar) 50 mg BID PO Last administered on 08/22/18at 20:26; Start 08/11/18 at 21:00 Prednisone (Prednisone) 25 mg DAILY PO Last administered on 08/22/18at 08:20; Start 08/12/18 at 09:00 Prednisone (Prednisone) 20 mg DAILY PO ; Start 08/12/18 at 09:00; Stop at 09:00; Status DC Non-Formulary Medication (Arformoterol Tartrate (Brovana)) 15 mcg BID IH ; Start 08/11/18 at 21:00; Stop 08/11/18 at 21:00; Status DC Levothyroxine Sodium (Synthroid) 200 mcg DAILY06 PO Last administered on at 05:53; Start 08/12/18 at 06:00; Stop 08/13/18 at 15:08; Status DC Methotrexate (Rheumatrex) 12.5 mg WEEKLY PO Last administered on 08/18/18at 07: 54; Start 08/18/18 at 09:00 Metoprolol Tartrate (Lopressor) 50 mg BID PO Last administered on 08/22/18at 20: 27; Start 08/11/18 at 21:00 Simvastatin (Zocor) 20 mg HS PO Last administered on 08/22/18at 20:24; Start at 21:00 Sertraline HCl (Zoloft) 50 mg DAILY PO Last administered on 08/16/18at 08:03; Start 08/13/18 at 09:00; Stop 08/16/18 at 16:26; Status DC Levothyroxine Sodium (Synthroid) 175 mcg DAILY06 PO Last administered on at 05:04; Start 08/13/18 at 06:00 Levothyroxine Sodium (Synthroid) 50 mcg DAILY06 PO Last administered on at 05:04; Start 08/13/18 at 06:00 Rivaroxaban (Xarelto) 15 mg DAILYWSUP PO Last administered on 08/22/18at 17:12; Start 08/13/18 at 17:00 Vitamin D (Vitamin D3) 50,000 unit WEEKLY PO Last administered on 08/19/18at 08: 25; Start 08/19/18 at 09:00 Doxycycline Hyclate (Vibra-Tab) 100 mg BID PO Last administered on 08/22/18 20 :24; Start 08/13/18 at 21:00; Stop 08/23/18 at 20:59 Furosemide (Lasix) 20 mg 1X ONCE PO Last administered on 08/13/18at 15:40; Start 08/13/18 at 15:15; Stop 08/13/18 at 15:19; Status DC Potassium Chloride (Klor-Con) 20 meq 1X ONCE PO Last administered on at 15:40; Start 08/13/18 at 15:15; Stop 08/13/18 at 15:19; Status DC Trazodone HCl (Desyrel) 50 mg PRN QHS PRN PO INSOMNIA, MAY REPEAT X1 Last administered on 08/22/18at 01:08; Start 08/13/18 at 18:15 Lactobacillus Rhamnosus (Culturelle) 1 cap BID PO Last administered on at 20:24; Start 08/14/18 at 09:00 Sertraline HCl (Zoloft) 75 mg DAILY PO Last administered on 08/22/18at 08:21; Start 08/17/18 at 09:00 Active Scripts Active Reported Ventolin Hfa Inhaler (Albuterol Sulfate) 18 Gm Hfa.aer.ad 1 Puff IH Tramadol Hcl (Tramadol HCl) 50 Mg Tablet 50 Mg PO BID PRN Simvastatin 20 Mg Tablet 20 Mg PO HS Prednisone 20 Mg Tablet 20 Mg PO DAILY Prednisone 10 Mg Tablet 5 Mg PO DAILY Oxybutynin Chloride 5 Mg Tablet 5 Mg PO Nystatin 15 Gm Cream..g. 1 Applic TP PRN Metoprolol Tartrate 50 Mg Tablet 50 Mg PO BID Methotrexate (Methotrexate Sodium) 2.5 Mg Tablet 12.5 Mg PO WEEKLY Losartan Potassium 50 Mg Tablet 50 Mg PO BID Levothyroxine Sodium 200 Mcg Tablet 200 Mcg PO DAILYAC Incruse Ellipta (Umeclidinium [place]) 62.5 Mcg Blst.w.dev 62.5 Mcg IH Hydrochlorothiazide Tablet (Hydrochlorothiazide) 25 Mg Tablet 25 Mg PO DAILY Furosemide 20 Mg Tablet 20 Mg PO DAILY Brovana (Arformoterol Tartrate) 15 Mcg/2 Ml Vial.neb 15 Mcg IH BID Albuterol Sulfate Neb Soln (Albuterol Sulfate) 2.5 Mg/3 Ml Vial.neb 2.5 Mg NEB TID I have reviewed the current psychotropics carefully including drug interactions. Risk benefit ratio favors no change other than as noted in my dictated progress note. Diagnosis: Problems: (1) MDD (major depressive disorder) (2) Anxiety disorder (3) Dementia, vascular, with depression (4) Impulse control disorder LAURA HOLGUIN MD Aug 22, 2018 23:13
--- NOTE | 2018-08-22 23:48 | NUR ---
Pt sitting calmly in dayroom watching football game at shift change. Interactive with staff and peers. Compliant with medications and assessment. After assessment, pt stated to RN "too bad I don't get to check you out now."
[2018-08-23] MEDS: ALBUTEROL SULFATE 2.5 MG/3 ML NEBU. NEB SCH ×4 (05:53→21:16)
[2018-08-23] MEDS: LEVOTHYROXINE 50 MCG TABLET PO SCH (05:59)
[2018-08-23] MEDS: LEVOTHYROXINE 175 MCG TABLET PO SCH (06:00)
[2018-08-23 06:17] VITALS: BP 139/64
[2018-08-23 07:37] LABS: BASO % 0 % (0-3); EOS % 0 % (0-3); HEMATOCRIT 36.5 % (39.0-53.0); HEMOGLOBIN 12.1 g/dL (13.0-17.5); LYMPH # 1.7 x10^3/uL (1.0-4.8); LYMPH % 15 % (24-48); MEAN CORPUSCULAR HEMOGLOBIN 30 pg (25-35); MEAN CORPUSCULAR HGB CONC 33 g/dL (31-37); MEAN CORPUSCULAR VOLUME 91 fL (79-100); MONO # 0.5 x10^3/uL (0.0-1.1); MONO % 4 % (0-9); NEUT # 8.9 x10^3uL (1.8-7.7); NEUT % 80 % (31-73); PLATELET COUNT 203 x10^3/uL (140-400); RED BLOOD COUNT 4.02 x10^6/uL (4.30-5.70); RED CELL DISTRIBUTION WIDTH 14.9 % (11.5-14.5); WHITE BLOOD COUNT 11.2 x10^3/uL (4.0-11.0)
[2018-08-23 07:46] LABS: ALBUMIN 2.8 g/dL (3.4-5.0); ALBUMIN/GLOBULIN RATIO 0.8 (1.0-1.7); CALCIUM 8.9 mg/dL (8.5-10.1); CREATININE 1.6 mg/dL (0.7-1.3); GFR 41.6; TOTAL BILIRUBIN 0.5 mg/dL (0.2-1.0); TOTAL PROTEIN 6.4 g/dL (6.4-8.2)
[2018-08-23 07:50] LABS: POTASSIUM 4.1 mmol/L (3.5-5.1)
[2018-08-23] MEDS: predniSONE 10 MG TABLET PO SCH (09:41)
[2018-08-23] MEDS: LOSARTAN 50 MG TABLET. PO SCH ×2 (09:42→19:32)
[2018-08-23] MEDS: FUROSEMIDE 20 MG TABLET PO SCH (09:42)
[2018-08-23] MEDS: LACTOBACILLUS RHAMNOSUS GG 1 CAPSULE. PO SCH ×2 (09:43→19:31)
[2018-08-23] MEDS: METOPROLOL TART IMMED RELEASE 50 MG TABLET PO SCH ×2 (09:43→19:31)
[2018-08-23] MEDS: DOXYCYCLINE HYCLATE 100 MG TABLET PO SCH (09:43)
[2018-08-23] MEDS: hydroCHLOROthiazide 25 MG TABLET PO SCH (09:43)
[2018-08-23] MEDS: SERTRALINE 50 MG TABLET. PO SCH (09:44)
--- NOTE | 2018-08-23 14:36 | NUR ---
Behavior Intervention Response and Plan: BIRP Note: Behavior: Assumed Care of patient, patient located in Hallway at shift change. Patient exhibited the following behavior Disorganized, Compliant, Cooperative. Brief assessment on rounds of vital signs, medication needs, lab studies, and pain. Treatment plan problems 1 and 2. Intervention: Patient assessed and the following interventions initiated safety checks 15 Minute Checks Cognitive Assessment , Head to toe Assessment , Medications. Response: After interactions and interventions patient responded in the following manner, Calm , Compliant ,Cooperative. Continue to assess behaviors and condition will continue to monitor throughout the shift as needed. Patient educated on ADL's, and hand hygiene. Plan: Continue to monitor Master Treatment Plan for patient's progress toward short term goals of Decreased Agitation, No harm To self/ others, care home goals to return to previous living setting vs placement. Continue to assess patient for changes in above assessment. Monitor for medication needs, pain, and safety concerns. Hourly rounding performed to ensure safe environment.
[2018-08-23 15:14] VITALS: BP 99/66
[2018-08-23] MEDS: RIVAROXABAN 15 MG TABLET. PO SCH (16:55)
[2018-08-23] MEDS: SIMVASTATIN 20 MG TABLET PO SCH (19:31)
--- NOTE | 2018-08-23 19:40 | PN ---
DATE: 08/21/2018 PSYCHIATRIC PROGRESS NOTE This late entry 08/21/2018 covers elements, not covered in my initial note. SUBJECTIVE: I met with the patient in the evening. The patient slept 4-3/4 hours previous night. He has been more compliant, less irritable, less labile, seems cognitively more intact. REVIEW OF SYSTEMS: Hard of hearing, has hearing aids. Impaired ambulation, in wheelchair. No CV, , pulmonary, eye system symptoms on review. MENTAL STATUS EXAM: Oriented to himself and situation. Speech has some latency, often responses monosyllabic, coherent. Abstraction fair, computation impaired, language function intact, attention span short. Mood and affect remains somewhat anxious, labile at times, withdrawn. LABORATORY DATA: Reviewed. IMPRESSION: Major depressive disorder, delirium due to general medical condition, seems to be resolving. Dementia, Alzheimer's, vascular early with delusion, depression, latter in partial remission. Rest unchanged. PLAN: No change from initial note. Maintain Zoloft along with trazodone for now. We are looking at fdc placement in [place] close to the patient's family. MAN Jason HOLGUIN MD DR: JENI/laina JOB#: [id number] / [id number]
--- NOTE | 2018-08-23 23:13 | PDOC ---
Exam Note: Cr Note: Please also refer to the separate dictated note~for this date of service dictated separately.~Patient seen individually. Discussed the patient with Nursing staff reviewed the chart.~Reviewed interim history and current functioning. Reviewed vital signs,~Labs/ Radiology~and current medications noted below. Continue current treatment with the changes noted in the dictated addendum note Assessment: Vital Signs: Vital Signs Date Time Temp Pulse Resp B/P (MAP) Pulse Ox O2 Delivery O2 Flow Rate FiO2 08/23/18 21:17 95 Room Air 08/23/18 15:14 98.4 70 21 99/66 (77) 08/17/18 20:18 2.0 I&O Intake and Output 08/23/18 07:00 Intake Total 840 ml Balance 840 ml Intake Oral 840 ml Labs: Laboratory Tests Test 08/23/18 07:17 White Blood Count 11.2 x10^3/uL (4.0-11.0) H Red Blood Count 4.02 x10^6/uL (4.30-5.70) L Hemoglobin 12.1 g/dL (13.0-17.5) L Hematocrit 36.5 % (39.0-53.0) L Mean Corpuscular Volume 91 fL (79-100) Mean Corpuscular Hemoglobin 30 pg (25-35) Mean Corpuscular Hemoglobin Concent 33 g/dL (31-37) Red Cell Distribution Width 14.9 % (11.5-14.5) H Platelet Count 203 x10^3/uL (140-400) Neutrophils (%) (Auto) 80 % (31-73) H Lymphocytes (%) (Auto) 15 % (24-48) L Monocytes (%) (Auto) 4 % (0-9) Eosinophils (%) (Auto) 0 % (0-3) Basophils (%) (Auto) 0 % (0-3) Neutrophils # (Auto) 8.9 x10^3uL (1.8-7.7) H Lymphocytes # (Auto) 1.7 x10^3/uL (1.0-4.8) Monocytes # (Auto) 0.5 x10^3/uL (0.0-1.1) Eosinophils # (Auto) 0.0 x10^3/uL (0.0-0.7) Basophils # (Auto) 0.0 x10^3/uL (0.0-0.2) Sodium Level 139 mmol/L (136-145) Potassium Level 4.1 mmol/L (3.5-5.1) Chloride Level 102 mmol/L (98-107) Carbon Dioxide Level 32 mmol/L (21-32) Anion Gap 5 (6-14) L Blood Urea Nitrogen 49 mg/dL (8-26) H Creatinine 1.6 mg/dL (0.7-1.3) H Estimated GFR (Cockcroft-Gault) 41.6 BUN/Creatinine Ratio 31 (6-20) H Glucose Level 117 mg/dL (70-99) H Calcium Level 8.9 mg/dL (8.5-10.1) Total Bilirubin 0.5 mg/dL (0.2-1.0) Aspartate Amino Transferase (AST) 64 U/L (15-37) H Alanine Aminotransferase (ALT) 177 U/L (16-63) H Alkaline Phosphatase 47 U/L (46-116) Total Protein 6.4 g/dL (6.4-8.2) Albumin 2.8 g/dL (3.4-5.0) L Albumin/Globulin Ratio 0.8 (1.0-1.7) L Current Medications: Meds: Current Medications Acetaminophen (Tylenol) 650 mg PRN Q6HRS PRN PO PAIN / TEMP; Start 08/11/18 at 18:30 Multi-Ingredient Ointment (Analgesic [place]) 1 jonathan PRN QID PRN TP MUSCLE PAIN; Start 08/11/18 at 18:30 Al Hydroxide/Mg Hydroxide (Mylanta Plus Xs) 15 ml PRN AFTMEALHC PRN PO DYSPEPSIA; Start 08/11/18 at 18:30 Magnesium Hydroxide (Milk Of Magnesia) 2,400 mg PRN QHS PRN PO CONSTIPATION; Start 08/11/18 at 18:30 Olanzapine (ZyPREXA ZYDIS) 2.5 mg PRN Q2HR PRN PO PSYCHOSIS Last administered on 08/15/18at 09:24; Start 08/11/18 at 18:45 Tramadol HCl (Ultram) 50 mg PRN BID PRN PO PAIN; Start 08/11/18 at 20:00 Albuterol Sulfate (Ventolin) 2.5 mg QID NEB Last administered on 08/23/18at 21: 16; Start 08/11/18 at 21:00 Furosemide (Lasix) 20 mg DAILY PO Last administered on 08/23/18at 09:42; Start 08/12/18 at 09:00 Hydrochlorothiazide (Hydrodiuril) 25 mg DAILY PO Last administered on at 09:43; Start 08/12/18 at 09:00 Losartan Potassium (Cozaar) 50 mg BID PO Last administered on 08/23/18at 09:42; Start 08/11/18 at 21:00 Prednisone (Prednisone) 25 mg DAILY PO Last administered on 08/23/18at 09:41; Start 08/12/18 at 09:00 Prednisone (Prednisone) 20 mg DAILY PO ; Start 08/12/18 at 09:00; Stop at 09:00; Status DC Non-Formulary Medication (Arformoterol Tartrate (Brovana)) 15 mcg BID IH ; Start 08/11/18 at 21:00; Stop 08/11/18 at 21:00; Status DC Levothyroxine Sodium (Synthroid) 200 mcg DAILY06 PO Last administered on at 05:53; Start 08/12/18 at 06:00; Stop 08/13/18 at 15:08; Status DC Methotrexate (Rheumatrex) 12.5 mg WEEKLY PO Last administered on 08/18/18at 07: 54; Start 08/18/18 at 09:00 Metoprolol Tartrate (Lopressor) 50 mg BID PO Last administered on 08/23/18at 09: 43; Start 08/11/18 at 21:00 Simvastatin (Zocor) 20 mg HS PO Last administered on 08/23/18at 19:31; Start at 21:00 Sertraline HCl (Zoloft) 50 mg DAILY PO Last administered on 08/16/18at 08:03; Start 08/13/18 at 09:00; Stop 08/16/18 at 16:26; Status DC Levothyroxine Sodium (Synthroid) 175 mcg DAILY06 PO Last administered on at 06:00; Start 08/13/18 at 06:00 Levothyroxine Sodium (Synthroid) 50 mcg DAILY06 PO Last administered on at 05:59; Start 08/13/18 at 06:00 Rivaroxaban (Xarelto) 15 mg DAILYWSUP PO Last administered on 08/23/18at 16:55; Start 08/13/18 at 17:00 Vitamin D (Vitamin D3) 50,000 unit WEEKLY PO Last administered on 08/19/18at 08: 25; Start 08/19/18 at 09:00 Doxycycline Hyclate (Vibra-Tab) 100 mg BID PO Last administered on 08/23/18at 09 :43; Start 08/13/18 at 21:00; Stop 08/23/18 at 20:59; Status DC Furosemide (Lasix) 20 mg 1X ONCE PO Last administered on 08/13/18at 15:40; Start 08/13/18 at 15:15; Stop 08/13/18 at 15:19; Status DC Potassium Chloride (Klor-Con) 20 meq 1X ONCE PO Last administered on at 15:40; Start 08/13/18 at 15:15; Stop 08/13/18 at 15:19; Status DC Trazodone HCl (Desyrel) 50 mg PRN QHS PRN PO INSOMNIA, MAY REPEAT X1 Last administered on 08/22/18at 01:08; Start 08/13/18 at 18:15 Lactobacillus Rhamnosus (Culturelle) 1 cap BID PO Last administered on at 19:31; Start 08/14/18 at 09:00 Sertraline HCl (Zoloft) 75 mg DAILY PO Last administered on 08/23/18at 09:44; Start 08/17/18 at 09:00 Active Scripts Active Reported Ventolin Hfa Inhaler (Albuterol Sulfate) 18 Gm Hfa.aer.ad 1 Puff IH Tramadol Hcl (Tramadol HCl) 50 Mg Tablet 50 Mg PO BID PRN Simvastatin 20 Mg Tablet 20 Mg PO HS Prednisone 20 Mg Tablet 20 Mg PO DAILY Prednisone 10 Mg Tablet 5 Mg PO DAILY Oxybutynin Chloride 5 Mg Tablet 5 Mg PO Nystatin 15 Gm Cream..g. 1 Applic TP PRN Metoprolol Tartrate 50 Mg Tablet 50 Mg PO BID Methotrexate (Methotrexate Sodium) 2.5 Mg Tablet 12.5 Mg PO WEEKLY Losartan Potassium 50 Mg Tablet 50 Mg PO BID Levothyroxine Sodium 200 Mcg Tablet 200 Mcg PO DAILYAC Incruse Ellipta (Umeclidinium [place]) 62.5 Mcg Blst.w.dev 62.5 Mcg IH Hydrochlorothiazide Tablet (Hydrochlorothiazide) 25 Mg Tablet 25 Mg PO DAILY Furosemide 20 Mg Tablet 20 Mg PO DAILY Brovana (Arformoterol Tartrate) 15 Mcg/2 Ml Vial.neb 15 Mcg IH BID Albuterol Sulfate Neb Soln (Albuterol Sulfate) 2.5 Mg/3 Ml Vial.neb 2.5 Mg NEB TID I have reviewed the current psychotropics carefully including drug interactions. Risk benefit ratio favors no change other than as noted in my dictated progress note. Diagnosis: Problems: (1) MDD (major depressive disorder) (2) Anxiety disorder (3) Dementia, vascular, with depression (4) Impulse control disorder LAURA HOLGUIN MD Aug 23, 2018 23:13
--- NOTE | 2018-08-23 23:56 | NUR ---
Pt located in the dayroom at shift change. Pt appears more anxious than usual, as he is repeatedly asking to call his or if his called here. Compliant with HS medications and assessment.
--- NOTE | 2018-08-24 00:37 | PN ---
DATE: 08/22/2018 This late entry, 08/22/2018, covers elements not covered in my initial note. SUBJECTIVE: I met with the patient in the evening. The patient slept 7 hours previous night. He has been otherwise cooperative. REVIEW OF SYSTEMS: Ambulation impaired, in wheelchair, hard of hearing. No CV, , pulmonary, eye system symptoms on review. MENTAL STATUS EXAM: Oriented to himself, situation. He talked at length about his son coming to visit him on 08/22/2018. Abstraction fair, computation impaired, language function intact, attention span short. Mood and affect remain somewhat anxious, labile. LABORATORY DATA: Reviewed. IMPRESSION: Unchanged from initial note. Delirium due to general medical condition, in partial remission; major depressive disorder, recurrent; major neurocognitive disorder, early Alzheimer, vascular with delusion, depression. PLAN: No change from initial note. Follow labs on 08/23/2018. MAN Jason HOLGUIN MD DR: JENI/laina JOB#: [id number] / [id number]
[2018-08-24] MEDS: ALBUTEROL SULFATE 2.5 MG/3 ML NEBU. NEB SCH ×4 (05:18→20:34)
[2018-08-24] MEDS: LEVOTHYROXINE 175 MCG TABLET PO SCH (06:05)
[2018-08-24] MEDS: LEVOTHYROXINE 50 MCG TABLET PO SCH (06:05)
[2018-08-24 06:26] VITALS: BP 157/87
[2018-08-24] MEDS: FUROSEMIDE 20 MG TABLET PO SCH (08:24)
[2018-08-24] MEDS: hydroCHLOROthiazide 25 MG TABLET PO SCH (08:24)
[2018-08-24] MEDS: LOSARTAN 50 MG TABLET. PO SCH ×2 (08:24→19:08)
[2018-08-24] MEDS: LACTOBACILLUS RHAMNOSUS GG 1 CAPSULE. PO SCH ×2 (08:24→19:08)
[2018-08-24] MEDS: predniSONE 10 MG TABLET PO SCH (08:25)
[2018-08-24] MEDS: METOPROLOL TART IMMED RELEASE 50 MG TABLET PO SCH ×2 (08:25→19:09)
[2018-08-24] MEDS: SERTRALINE 50 MG TABLET. PO SCH (08:26)
--- NOTE | 2018-08-24 11:31 | NUR ---
Assumed care of pt @ approx 0700. Pt was sitting up eating breakfast in the Dining Room at the time of our initial encounter. Pt oriented to self only. Is pleasantly confused but compliant. Denies pain. Compliant w/meds taken whole with water. No signs of hallucinations, delusions, or paranoia noted. Pt appears to be in good spirits, and participated in group this AM. No inappropriate behaviors noted so far this shift. Pt is currently socializing with his peers in the hallway. No needs voiced @ this time. Will continue to monitor and assist pt in working towards his treatment and discharge goals.
--- NOTE | 2018-08-24 14:51 | PN ---
DATE: 08/23/2018 This is a late entry for date of service 08/23/2018 and covers elements not covered in my initial note. SUBJECTIVE: I met with the patient in the evening. The patient slept 6-3/4 hours previous night. He remains somewhat withdrawn, but otherwise appropriate. He is hard of hearing, impaired ambulation with walker. LABORATORY DATA: WBC 11.2. AST, ALT are elevated and I will defer to Dr. Chaudhary/Dr. Fox for medical followup. REVIEW OF SYSTEMS: No CV, , pulmonary, eye system symptoms on review. MENTAL STATUS EXAM: Oriented to himself and situation. Speech has some latency, often responses monosyllabic. Abstraction fair, computation impaired, language function intact. Attention span short. Short term memory is impaired. No suicidal or homicidal ideation. LABORATORY DATA: Reviewed. IMPRESSION: Major depressive disorder, major neurocognitive disorder, early Alzheimer, vascular with depression, delirium due to general medical condition seems to be resolving, raised liver enzymes. PLAN: Defer medical followup to Dr. Chaudhary, Dr. Fox. He is on no psychotropics that should be elevating his liver enzymes. Maintain Zoloft 75 mg a day, Zyprexa and trazodone. Zyprexa is just used as p.r.n. MAN Jason HOLGUIN MD DR: JENI/laina JOB#: [id number] / [id number]
[2018-08-24 16:13] VITALS: BP 134/62
[2018-08-24] MEDS: RIVAROXABAN 15 MG TABLET. PO SCH (17:22)
[2018-08-24] MEDS: SIMVASTATIN 20 MG TABLET PO SCH (19:09)
--- NOTE | 2018-08-24 20:47 | NUR ---
Nursing note: Assumed care of pt in the day room. He was quietly sitting visiting and watching a movie. He was compiant
--- NOTE | 2018-08-24 20:48 | NUR ---
Cont: He was compliant w/meds and assessment. No c/o pain.
[2018-08-25] MEDS: ALBUTEROL SULFATE 2.5 MG/3 ML NEBU. NEB SCH ×5 (05:22→20:48)
[2018-08-25] MEDS: LEVOTHYROXINE 50 MCG TABLET PO SCH (05:37)
[2018-08-25] MEDS: LEVOTHYROXINE 175 MCG TABLET PO SCH (05:37)
[2018-08-25 05:58] VITALS: BP 148/83
[2018-08-25] MEDS: LACTOBACILLUS RHAMNOSUS GG 1 CAPSULE. PO SCH ×2 (07:56→19:34)
[2018-08-25] MEDS: LOSARTAN 50 MG TABLET. PO SCH ×2 (07:56→19:33)
[2018-08-25] MEDS: FUROSEMIDE 20 MG TABLET PO SCH (07:56)
[2018-08-25] MEDS: hydroCHLOROthiazide 25 MG TABLET PO SCH (07:56)
[2018-08-25] MEDS: predniSONE 10 MG TABLET PO SCH (07:57)
[2018-08-25] MEDS: METOPROLOL TART IMMED RELEASE 50 MG TABLET PO SCH ×2 (07:57→19:33)
[2018-08-25] MEDS: SERTRALINE 50 MG TABLET. PO SCH (07:58)
[2018-08-25] MEDS: METHOTREXATE SODIUM 2.5 MG TABLET PO SCH (08:00)
--- NOTE | 2018-08-25 12:43 | NUR ---
Assumed care of pt @ approx 0700. Pt was sitting up eating breakfast in the Dining Room at the time of our initial encounter. Pt oriented to self only. Is pleasantly confused but compliant. Denies pain. Compliant w/meds taken whole with water. No signs of hallucinations, delusions, or paranoia noted. Pt appears to be in good spirits, and participated in group this AM. No inappropriate behaviors noted so far this shift. This RN took a phone call this morning from Beth Anderson @ [facility], who requested a copy of the pt's current med list, any recent imaging, and recent labs. She indicated that the pt's daughter was currently at the facility to do paperwork, but they needed this information from [facility]. Per her request, I faxed the requested information to her at fax # . Fax confirmation received & placed in chart. Ms. Anderson may be reached by phone @ . Pt is currently socializing with his peers in the Dining Room while eating lunch. No needs voiced @ this time. Will continue to monitor and assist pt in working towards his treatment and discharge goals.
--- NOTE | 2018-08-25 12:45 | NUR ---
SW received a call from [facility] to discuss pt discharge for tomorrow. SW was not sure that this was happening as she had not been contacted. The admissions rep reports that pt dtr signed all of the admission paperwork and apologized for not letting SW know. SW was asked to receive a care assessment or a discharge order stating that pt would be skilled for less than 30 days for PT, OT, and nursing services. The facility originally planned to pick pt up around 1300; but changed time to 10:00 as nursing requested an earlier arrival time. DARIO contacted pt dtr to inform her that she just learned that she did admission paperwork. Pt dtr confirmed and wondered if pt would be able to receive a head CT before being discharged. DARIO will pass this on to the physician and call pt dtr in the AM. No other concerns were noted.
--- NOTE | 2018-08-25 15:22 | NUR ---
[facility] Social Work Discharge Planning Form Patient Name MADI GARCIA Admit Date: 08/11/18 DISCHARGE PLAN Discharge Destination: [facility] for skilled rehabilitation Care Assessment: N/A Level II Assessment: N/A Transportation: Facility to pick pt up at 10:00 AM Special Instructions/Notes: Please fax discharge orders and medication list to the number listed below. DISCHARGE TO FACILITY Facility: [facility] Address: [address] [place] [address] Contact Name: Beth (Admissions): PCP: Dr. Chapa
[2018-08-25 16:40] VITALS: BP 113/71
[2018-08-25] MEDS: RIVAROXABAN 15 MG TABLET. PO SCH (17:30)
[2018-08-25] MEDS: SIMVASTATIN 20 MG TABLET PO SCH (19:34)
--- NOTE | 2018-08-25 19:51 | PN ---
DATE: 08/24/2018 PSYCHIATRIC PROGRESS NOTE This late entry 08/24/2018 covers elements not covered in my initial note. SUBJECTIVE: I met with the patient in the evening. The patient slept 7 hours previous night, has been pleasant, confused, oriented just to himself. REVIEW OF SYSTEMS: Hard of hearing, impaired ambulation with walker. Does not complain of any pain. No hallucinations noted, otherwise compliant. No CV, , GI, or pulmonary system symptoms on review. MENTAL STATUS EXAM: Oriented to himself, situation. Insight, judgment, recent memory is impaired. Language function intact. Attention span short. Mood and affect, somewhat anxious, at times labile, but improved. No suicidal or homicidal ideation. LABORATORY DATA: Reviewed. IMPRESSION: Major depressive disorder, recurrent with psychotic features, in partial remission, delirium, unspecified, in partial remission; major neurocognitive disorder, early Alzheimer, vascular with depression. Rest unchanged. PLAN: No change from initial note. MAN Jason HOLGUIN MD DR: JENI/laina JOB#: [id number] / [id number]
--- NOTE | 2018-08-25 22:46 | PDOC ---
Exam Note: Cr Note: Late entry for DOS 08/24/2018. Please also refer to the separate dictated note~ for this date of service dictated separately.~Patient seen individually. Discussed the patient with Nursing staff reviewed the chart.~Reviewed interim history and current functioning. Reviewed vital signs,~Labs/ Radiology~and current medications noted below. Continue current treatment with the changes noted in the dictated addendum note Assessment: Vital Signs: VS - Last 72 Hours, by Label Date Time Temp Pulse Resp B/P (MAP) Pulse Ox O2 Delivery O2 Flow Rate FiO2 08/25/18 20:33 96 Room Air 08/25/18 19:33 81 113/71 08/25/18 19:33 81 113/71 08/25/18 16:58 96 Room Air 08/25/18 16:40 98.2 81 19 113/71 (85) 93 08/25/18 11:59 94 Room Air 08/25/18 07:57 74 148/83 08/25/18 07:56 74 148/83 08/25/18 05:58 98.1 74 18 148/83 (104) 95 08/25/18 05:00 95 Room Air 08/24/18 20:14 96 Room Air 08/24/18 19:09 82 134/62 08/24/18 19:08 82 134/62 08/24/18 16:21 95 Room Air 08/24/18 16:13 97.5 82 16 134/62 (86) 98 Room Air 08/24/18 11:15 95 Room Air 08/24/18 08:25 78 157/87 08/24/18 08:24 78 157/87 08/24/18 06:26 97.9 78 20 157/87 (110) 93 Room Air 08/24/18 05:19 95 Room Air 08/23/18 21:17 95 Room Air 08/23/18 16:16 97 Room Air 08/23/18 15:14 98.4 70 21 99/66 (77) 92 Room Air 08/23/18 11:36 97 Room Air 08/23/18 09:43 73 139/64 08/23/18 09:42 73 139/64 08/23/18 06:17 97.4 73 22 139/64 (89) 94 08/23/18 05:53 96 Room Air Vital Signs Date Time Temp Pulse Resp B/P (MAP) Pulse Ox O2 Delivery O2 Flow Rate FiO2 08/25/18 20:33 96 Room Air 08/25/18 19:33 81 113/71 08/25/18 16:40 98.2 19 I&O Intake and Output 08/25/18 07:00 Intake Total 1320 ml Balance 1320 ml Intake Oral 1320 ml Current Medications: Meds: Current Medications Acetaminophen (Tylenol) 650 mg PRN Q6HRS PRN PO PAIN / TEMP; Start 08/11/18 at 18:30 Multi-Ingredient Ointment (Analgesic [place]) 1 jonathan PRN QID PRN TP MUSCLE PAIN; Start 08/11/18 at 18:30 Al Hydroxide/Mg Hydroxide (Mylanta Plus Xs) 15 ml PRN AFTMEALHC PRN PO DYSPEPSIA; Start 08/11/18 at 18:30 Magnesium Hydroxide (Milk Of Magnesia) 2,400 mg PRN QHS PRN PO CONSTIPATION; Start 08/11/18 at 18:30 Olanzapine (ZyPREXA ZYDIS) 2.5 mg PRN Q2HR PRN PO PSYCHOSIS Last administered on 08/15/18at 09:24; Start 08/11/18 at 18:45 Tramadol HCl (Ultram) 50 mg PRN BID PRN PO PAIN; Start 08/11/18 at 20:00 Albuterol Sulfate (Ventolin) 2.5 mg QID NEB Last administered on 08/25/18at 20: 48; Start 08/11/18 at 21:00 Furosemide (Lasix) 20 mg DAILY PO Last administered on 08/25/18at 07:56; Start 08/12/18 at 09:00 Hydrochlorothiazide (Hydrodiuril) 25 mg DAILY PO Last administered on at 07:56; Start 08/12/18 at 09:00 Losartan Potassium (Cozaar) 50 mg BID PO Last administered on 08/25/18at 07:56; Start 08/11/18 at 21:00 Prednisone (Prednisone) 25 mg DAILY PO Last administered on 08/25/18at 07:57; Start 08/12/18 at 09:00 Prednisone (Prednisone) 20 mg DAILY PO ; Start 08/12/18 at 09:00; Stop at 09:00; Status DC Non-Formulary Medication (Arformoterol Tartrate (Brovana)) 15 mcg BID IH ; Start 08/11/18 at 21:00; Stop 08/11/18 at 21:00; Status DC Levothyroxine Sodium (Synthroid) 200 mcg DAILY06 PO Last administered on at 05:53; Start 08/12/18 at 06:00; Stop 08/13/18 at 15:08; Status DC Methotrexate (Rheumatrex) 12.5 mg WEEKLY PO Last administered on 08/25/18at 08: 00; Start 08/18/18 at 09:00 Metoprolol Tartrate (Lopressor) 50 mg BID PO Last administered on 08/25/18at 07: 57; Start 08/11/18 at 21:00 Simvastatin (Zocor) 20 mg HS PO Last administered on 08/25/18at 19:34; Start at 21:00; Status Future hold Sertraline HCl (Zoloft) 50 mg DAILY PO Last administered on 08/16/18at 08:03; Start 08/13/18 at 09:00; Stop 08/16/18 at 16:26; Status DC Levothyroxine Sodium (Synthroid) 175 mcg DAILY06 PO Last administered on at 05:37; Start 08/13/18 at 06:00 Levothyroxine Sodium (Synthroid) 50 mcg DAILY06 PO Last administered on at 05:37; Start 08/13/18 at 06:00 Rivaroxaban (Xarelto) 15 mg DAILYWSUP PO Last administered on 08/25/18at 17:30; Start 08/13/18 at 17:00 Vitamin D (Vitamin D3) 50,000 unit WEEKLY PO Last administered on 08/19/18at 08: 25; Start 08/19/18 at 09:00 Doxycycline Hyclate (Vibra-Tab) 100 mg BID PO Last administered on 08/23/18at 09 :43; Start 08/13/18 at 21:00; Stop 08/23/18 at 20:59; Status DC Furosemide (Lasix) 20 mg 1X ONCE PO Last administered on 08/13/18at 15:40; Start 08/13/18 at 15:15; Stop 08/13/18 at 15:19; Status DC Potassium Chloride (Klor-Con) 20 meq 1X ONCE PO Last administered on at 15:40; Start 08/13/18 at 15:15; Stop 08/13/18 at 15:19; Status DC Trazodone HCl (Desyrel) 50 mg PRN QHS PRN PO INSOMNIA, MAY REPEAT X1 Last administered on 08/22/18at 01:08; Start 08/13/18 at 18:15 Lactobacillus Rhamnosus (Culturelle) 1 cap BID PO Last administered on at 19:34; Start 08/14/18 at 09:00 Sertraline HCl (Zoloft) 75 mg DAILY PO Last administered on 08/25/18at 07:58; Start 08/17/18 at 09:00 Active Scripts Active Reported Ventolin Hfa Inhaler (Albuterol Sulfate) 18 Gm Hfa.aer.ad 1 Puff IH Tramadol Hcl (Tramadol HCl) 50 Mg Tablet 50 Mg PO BID PRN Simvastatin 20 Mg Tablet 20 Mg PO HS Prednisone 20 Mg Tablet 20 Mg PO DAILY Prednisone 10 Mg Tablet 5 Mg PO DAILY Oxybutynin Chloride 5 Mg Tablet 5 Mg PO Nystatin 15 Gm Cream..g. 1 Applic TP PRN Metoprolol Tartrate 50 Mg Tablet 50 Mg PO BID Methotrexate (Methotrexate Sodium) 2.5 Mg Tablet 12.5 Mg PO WEEKLY Losartan Potassium 50 Mg Tablet 50 Mg PO BID Levothyroxine Sodium 200 Mcg Tablet 200 Mcg PO DAILYAC Incruse Ellipta (Umeclidinium [place]) 62.5 Mcg Blst.w.dev 62.5 Mcg IH Hydrochlorothiazide Tablet (Hydrochlorothiazide) 25 Mg Tablet 25 Mg PO DAILY Furosemide 20 Mg Tablet 20 Mg PO DAILY Brovana (Arformoterol Tartrate) 15 Mcg/2 Ml Vial.neb 15 Mcg IH BID Albuterol Sulfate Neb Soln (Albuterol Sulfate) 2.5 Mg/3 Ml Vial.neb 2.5 Mg NEB TID I have reviewed the current psychotropics carefully including drug interactions. Risk benefit ratio favors no change other than as noted in my dictated progress note. Diagnosis: Problems: (1) MDD (major depressive disorder) (2) Anxiety disorder (3) Dementia, vascular, with depression (4) Impulse control disorder LAURA HOLGUIN MD Aug 25, 2018 22:46
--- NOTE | 2018-08-25 23:11 | NUR ---
Pt located in the dayroom at shift change. Pt interactive with staff and peers. Compliant with medications and assessment. No adverse behaviors noted.
--- NOTE | 2018-08-25 23:17 | PDOC ---
Exam Note: Cr Note: Please also refer to the separate dictated note~for this date of service dictated separately.~Patient seen individually. Discussed the patient with Nursing staff reviewed the chart.~Reviewed interim history and current functioning. Reviewed vital signs,~Labs/ Radiology~and current medications noted below. Continue current treatment with the changes noted in the dictated addendum note Assessment: Vital Signs: Vital Signs Date Time Temp Pulse Resp B/P (MAP) Pulse Ox O2 Delivery O2 Flow Rate FiO2 08/25/18 20:33 96 Room Air 08/25/18 19:33 81 113/71 08/25/18 16:40 98.2 19 I&O Intake and Output 08/25/18 07:00 Intake Total 1320 ml Balance 1320 ml Intake Oral 1320 ml Current Medications: Meds: Current Medications Acetaminophen (Tylenol) 650 mg PRN Q6HRS PRN PO PAIN / TEMP; Start 08/11/18 at 18:30 Multi-Ingredient Ointment (Analgesic [place]) 1 jonathan PRN QID PRN TP MUSCLE PAIN; Start 08/11/18 at 18:30 Al Hydroxide/Mg Hydroxide (Mylanta Plus Xs) 15 ml PRN AFTMEALHC PRN PO DYSPEPSIA; Start 08/11/18 at 18:30 Magnesium Hydroxide (Milk Of Magnesia) 2,400 mg PRN QHS PRN PO CONSTIPATION; Start 08/11/18 at 18:30 Olanzapine (ZyPREXA ZYDIS) 2.5 mg PRN Q2HR PRN PO PSYCHOSIS Last administered on 08/15/18at 09:24; Start 08/11/18 at 18:45 Tramadol HCl (Ultram) 50 mg PRN BID PRN PO PAIN; Start 08/11/18 at 20:00 Albuterol Sulfate (Ventolin) 2.5 mg QID NEB Last administered on 08/25/18at 20: 48; Start 08/11/18 at 21:00 Furosemide (Lasix) 20 mg DAILY PO Last administered on 08/25/18at 07:56; Start 08/12/18 at 09:00 Hydrochlorothiazide (Hydrodiuril) 25 mg DAILY PO Last administered on 07:56; Start 08/12/18 at 09:00 Losartan Potassium (Cozaar) 50 mg BID PO Last administered on 08/25/18at 07:56; Start 08/11/18 at 21:00 Prednisone (Prednisone) 25 mg DAILY PO Last administered on 08/25/18at 07:57; Start 08/12/18 at 09:00 Prednisone (Prednisone) 20 mg DAILY PO ; Start 08/12/18 at 09:00; Stop at 09:00; Status DC Non-Formulary Medication (Arformoterol Tartrate (Brovana)) 15 mcg BID IH ; Start 08/11/18 at 21:00; Stop 08/11/18 at 21:00; Status DC Levothyroxine Sodium (Synthroid) 200 mcg DAILY06 PO Last administered on at 05:53; Start 08/12/18 at 06:00; Stop 08/13/18 at 15:08; Status DC Methotrexate (Rheumatrex) 12.5 mg WEEKLY PO Last administered on 08/25/18at 08: 00; Start 08/18/18 at 09:00 Metoprolol Tartrate (Lopressor) 50 mg BID PO Last administered on 08/25/18at 07: 57; Start 08/11/18 at 21:00 Simvastatin (Zocor) 20 mg HS PO Last administered on 08/25/18at 19:34; Start at 21:00; Status Future hold Sertraline HCl (Zoloft) 50 mg DAILY PO Last administered on 08/16/18at 08:03; Start 08/13/18 at 09:00; Stop 08/16/18 at 16:26; Status DC Levothyroxine Sodium (Synthroid) 175 mcg DAILY06 PO Last administered on at 05:37; Start 08/13/18 at 06:00 Levothyroxine Sodium (Synthroid) 50 mcg DAILY06 PO Last administered on at 05:37; Start 08/13/18 at 06:00 Rivaroxaban (Xarelto) 15 mg DAILYWSUP PO Last administered on 08/25/18at 17:30; Start 08/13/18 at 17:00 Vitamin D (Vitamin D3) 50,000 unit WEEKLY PO Last administered on 08/19/18at 08: 25; Start 08/19/18 at 09:00 Doxycycline Hyclate (Vibra-Tab) 100 mg BID PO Last administered on 08/23/18at 09 :43; Start 08/13/18 at 21:00; Stop 08/23/18 at 20:59; Status DC Furosemide (Lasix) 20 mg 1X ONCE PO Last administered on 08/13/18at 15:40; Start 08/13/18 at 15:15; Stop 08/13/18 at 15:19; Status DC Potassium Chloride (Klor-Con) 20 meq 1X ONCE PO Last administered on at 15:40; Start 08/13/18 at 15:15; Stop 08/13/18 at 15:19; Status DC Trazodone HCl (Desyrel) 50 mg PRN QHS PRN PO INSOMNIA, MAY REPEAT X1 Last administered on 08/22/18at 01:08; Start 08/13/18 at 18:15 Lactobacillus Rhamnosus (Culturelle) 1 cap BID PO Last administered on at 19:34; Start 08/14/18 at 09:00 Sertraline HCl (Zoloft) 75 mg DAILY PO Last administered on 08/25/18at 07:58; Start 08/17/18 at 09:00 Active Scripts Active Reported Ventolin Hfa Inhaler (Albuterol Sulfate) 18 Gm Hfa.aer.ad 1 Puff IH Tramadol Hcl (Tramadol HCl) 50 Mg Tablet 50 Mg PO BID PRN Simvastatin 20 Mg Tablet 20 Mg PO HS Prednisone 20 Mg Tablet 20 Mg PO DAILY Prednisone 10 Mg Tablet 5 Mg PO DAILY Oxybutynin Chloride 5 Mg Tablet 5 Mg PO Nystatin 15 Gm Cream..g. 1 Applic TP PRN Metoprolol Tartrate 50 Mg Tablet 50 Mg PO BID Methotrexate (Methotrexate Sodium) 2.5 Mg Tablet 12.5 Mg PO WEEKLY Losartan Potassium 50 Mg Tablet 50 Mg PO BID Levothyroxine Sodium 200 Mcg Tablet 200 Mcg PO DAILYAC Incruse Ellipta (Umeclidinium [place]) 62.5 Mcg Blst.w.dev 62.5 Mcg IH Hydrochlorothiazide Tablet (Hydrochlorothiazide) 25 Mg Tablet 25 Mg PO DAILY Furosemide 20 Mg Tablet 20 Mg PO DAILY Brovana (Arformoterol Tartrate) 15 Mcg/2 Ml Vial.neb 15 Mcg IH BID Albuterol Sulfate Neb Soln (Albuterol Sulfate) 2.5 Mg/3 Ml Vial.neb 2.5 Mg NEB TID I have reviewed the current psychotropics carefully including drug interactions. Risk benefit ratio favors no change other than as noted in my dictated progress note. Diagnosis: Problems: (1) MDD (major depressive disorder) (2) Anxiety disorder (3) Dementia, vascular, with depression (4) Impulse control disorder LAURA HOLGUIN MD Aug 25, 2018 23:17
[2018-08-26] MEDS ORDERED: ACET325T9 PO (01:26)
[2018-08-26] MEDS ORDERED: CHOL500016 PO (01:27)
[2018-08-26] MEDS ORDERED: LACT1CAP21 PO (01:28)
[2018-08-26] MEDS ORDERED: MAG355OR17 PO (01:29)
[2018-08-26] MEDS ORDERED: MAGN2400 PO (01:29)
[2018-08-26] MEDS ORDERED: METH29OI TP (01:30)
[2018-08-26] MEDS ORDERED: OLAN5TAB5 PO (01:30)
[2018-08-26] MEDS ORDERED: RIVA10TA PO (01:31)
[2018-08-26] MEDS ORDERED: SERT100T PO (01:31)
[2018-08-26] MEDS ORDERED: TRAZ-85 PO (01:33)
[2018-08-26] MEDS: ALBUTEROL SULFATE 2.5 MG/3 ML NEBU. NEB SCH (05:29)
[2018-08-26 05:57] VITALS: BP 116/58
[2018-08-26] MEDS: LEVOTHYROXINE 175 MCG TABLET PO SCH (06:01)
[2018-08-26] MEDS: LEVOTHYROXINE 50 MCG TABLET PO SCH (06:01)
--- NOTE | 2018-08-26 08:49 | NUR ---
WEEKLY ACTIVITY THERAPY NOTE Date of Admission: 08/11/2018 Date of AT Assessment: 08/16/2018 Goal aimed: to increase time management and socialization Initial goal: Pt. will participate in at least five individual therapy activity engagements before discharge. Weekly progress towards goal: on track Group participation level: moderate Behaviors observed: Pt. has participated in five groups this week with prompting; Pt. is friendly with staff and compliant and benefits from having someone speak into his good ear during groups Plan: change goal- Pt. will engage in at least three groups per week
--- NOTE | 2018-08-26 09:00 | NUR ---
Behavior Intervention Response and Plan: BIRP Note: Behavior: Assumed Care of patient, patient located in Hallway at shift change. Patient exhibited the following behavior Calm, Compliant, Cooperative. Brief assessment on rounds of vital signs, medication needs, lab studies, and pain. Treatment plan problems alteration in mood and fall risk. Intervention: Patient assessed and the following interventions initiated safety checks 15 Minute Checks Head to toe Assessment , Cognitive Assessment , Medications. Response: After interactions and interventions patient responded in the following manner, Wandering , Calm ,Compliant. Continue to assess behaviors and condition will continue to monitor throughout the shift as needed. Patient educated on ADL's, and hand hygiene. 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 Continue to assess patient for changes in above assessment. Monitor for medication needs, pain, and safety concerns. Hourly rounding performed to ensure safe environment.
[2018-08-26 09:38] VITALS: BP 116/58
[2018-08-26] MEDS: LOSARTAN 50 MG TABLET. PO SCH (09:38)
[2018-08-26] MEDS: predniSONE 10 MG TABLET PO SCH (09:38)
[2018-08-26] MEDS: METOPROLOL TART IMMED RELEASE 50 MG TABLET PO SCH (09:38)
[2018-08-26] MEDS: hydroCHLOROthiazide 25 MG TABLET PO SCH (09:38)
[2018-08-26] MEDS: FUROSEMIDE 20 MG TABLET PO SCH (09:38)
[2018-08-26] MEDS: SERTRALINE 50 MG TABLET. PO SCH (09:39)
[2018-08-26] MEDS: LACTOBACILLUS RHAMNOSUS GG 1 CAPSULE. PO SCH (09:39)
[2018-08-26] MEDS: CHOLECALCIFEROL (VITAMIN D3) 50,000 UNIT CAPSULE PO SCH (09:40)
--- NOTE | 2018-08-26 10:40 | NUR ---
Transition Record was faxed to follow-up provider with the following elements: Reason for admission, procedures, tests, principal diagnosis, pending studies, patient instructions, 11/05 contact information for unit, phone number to obtain pending test results, plan for follow-up care, physician follow-up, advanced directive information, and medication list with dose, duration and instructions. This information was included in the following documents: History and physical, lab results, study results, progress notes, social work planning form, DC instruction form, patient visit summary, and medication reconciliation form. Date & time record faxed:08/26/18 0048 Record faxed to:[facility] skilled rehabilitation [phone] Record discussed with/ report given to:Lana
--- NOTE | 2018-08-27 18:01 | DS ---
DATE OF DISCHARGE: 08/26/2018 DISCHARGE SUMMARY/PSYCHIATRIC PROGRESS NOTE This late entry 08/26/2018 covers elements not covered in my initial note 08/26/2018. REASON FOR ADMISSION: Please refer to the admission history for details. Briefly, the patient is an 83-year-old male referred to us from [facility] by Dr. Strauss, his primary care physician after he had been hospitalized there for increased confusion, agitation, combative with cares. He had been depressed, psychotic and added stressor with the recent of his brother. He had failed outpatient psychiatric interventions, even with Dr. Strauss, who had known him for most of his life. SIGNIFICANT FINDINGS AND CLINICAL COURSE: Following admission, the patient was seen daily individually by myself from a psychiatric standpoint, medical followup with Dr. Chaudhary/Dr. Fox. The patient was extremely confused, initially labile, depressed, being hard of hearing only complicated this further. Adjustments were made in his psychotropics. He seemed to respond to a combination of Zoloft 75 mg a day, trazodone 50 mg at bedtime p.r.n., may repeat x 1, Zyprexa p.r.n. Gradually, his mood appeared to improve. He was much less labile, more oriented prior to discharge, 08/26/2018. REVIEW OF SYSTEMS: Hard of hearing, impaired ambulation with walker. No CV, , pulmonary, eye system symptoms on review. MENTAL STATUS EXAM: Oriented to himself and situation. Speech coherent. Abstraction fair, computation impaired, language function intact, attention span short. Mood and affect, lability improved, less depressed. Psychotic symptoms appear to be subsiding. LABORATORY DATA: Reviewed. FINAL DIAGNOSES: Major depressive disorder with psychotic features; cognitive disorder, unspecified; anxiety disorder, unspecified. Rest unchanged from admission. DISCHARGE MEDICATIONS: Please refer to the [facility]AD. DISCHARGE INSTRUCTIONS: [facility]. MAN Jason HOLGUIN MD DR: JENI/laina JOB#: [id number] / [id number]
--- NOTE | 2018-08-27 19:28 | PDOC ---
Exam Note: Cr Note: Late entry for date of service August 26, 2018. Please also refer to the separate dictated note~for this date of service dictated separately.~Patient seen individually. Discussed the patient with Nursing staff reviewed the chart.~ Reviewed interim history and current functioning. Reviewed vital signs,~Labs/ Radiology~and current medications noted below. Continue current treatment with the changes noted in the dictated addendum note Assessment: Vital Signs: VS - Last 72 Hours, by Label Date Time Temp Pulse Resp B/P (MAP) Pulse Ox O2 Delivery O2 Flow Rate FiO2 08/26/18 09:38 82 116/58 08/26/18 09:38 82 116/58 08/26/18 05:57 97.9 82 20 116/58 (77) 93 08/26/18 05:10 97 Room Air 08/25/18 20:33 96 Room Air 08/25/18 19:33 81 113/71 08/25/18 19:33 81 113/71 08/25/18 16:58 96 Room Air 08/25/18 16:40 98.2 81 19 113/71 (85) 93 08/25/18 11:59 94 Room Air 08/25/18 07:57 74 148/83 08/25/18 07:56 74 148/83 08/25/18 05:58 98.1 74 18 148/83 (104) 95 08/25/18 05:00 95 Room Air 08/24/18 20:14 96 Room Air Vital Signs Date Time Temp Pulse Resp B/P (MAP) Pulse Ox O2 Delivery O2 Flow Rate FiO2 08/26/18 09:38 82 116/58 08/26/18 05:57 97.9 20 93 08/26/18 05:10 Room Air I&O Intake and Output 08/27/18 07:00 Intake Total 360 ml Balance 360 ml Intake Oral 360 ml Current Medications: Meds: Current Medications Acetaminophen (Tylenol) 650 mg PRN Q6HRS PRN PO PAIN / TEMP; Start 08/11/18 at 18:30; Stop 08/26/18 at 11:58; Status DC Multi-Ingredient Ointment (Analgesic [place]) 1 jonathan PRN QID PRN TP MUSCLE PAIN; Start 08/11/18 at 18:30; Stop 08/26/18 at 11:58; Status DC Al Hydroxide/Mg Hydroxide (Mylanta Plus Xs) 15 ml PRN AFTMEALHC PRN PO DYSPEPSIA; Start 08/11/18 at 18:30; Stop 08/26/18 at 11:58; Status DC Magnesium Hydroxide (Milk Of Magnesia) 2,400 mg PRN QHS PRN PO CONSTIPATION; Start 08/11/18 at 18:30; Stop 08/26/18 at 11:58; Status DC Olanzapine (ZyPREXA ZYDIS) 2.5 mg PRN Q2HR PRN PO PSYCHOSIS Last administered on 08/26/18at 10:02; Start 08/11/18 at 18:45; Stop 08/26/18 at 11:58; Status DC Tramadol HCl (Ultram) 50 mg PRN BID PRN PO PAIN; Start 08/11/18 at 20:00; Stop 08/26/18 at 11:58; Status DC Albuterol Sulfate (Ventolin) 2.5 mg QID NEB Last administered on 08/26/18at 05: 29; Start 08/11/18 at 21:00; Stop 08/26/18 at 11:58; Status DC Furosemide (Lasix) 20 mg DAILY PO Last administered on 08/26/18at 09:38; Start 08/12/18 at 09:00; Stop 08/26/18 at 11:58; Status DC Hydrochlorothiazide (Hydrodiuril) 25 mg DAILY PO Last administered on at 09:38; Start 08/12/18 at 09:00; Stop 08/26/18 at 11:58; Status DC Losartan Potassium (Cozaar) 50 mg BID PO Last administered on 08/26/18at 09:38; Start 08/11/18 at 21:00; Stop 08/26/18 at 11:59; Status DC Prednisone (Prednisone) 25 mg DAILY PO Last administered on 08/26/18at 09:38; Start 08/12/18 at 09:00; Stop 08/26/18 at 11:59; Status DC Prednisone (Prednisone) 20 mg DAILY PO ; Start 08/12/18 at 09:00; Stop at 09:00; Status DC Non-Formulary Medication (Arformoterol Tartrate (Brovana)) 15 mcg BID IH ; Start 08/11/18 at 21:00; Stop 08/11/18 at 21:00; Status DC Levothyroxine Sodium (Synthroid) 200 mcg DAILY06 PO Last administered on at 05:53; Start 08/12/18 at 06:00; Stop 08/13/18 at 15:08; Status DC Methotrexate (Rheumatrex) 12.5 mg WEEKLY PO Last administered on 08/25/18at 08: 00; Start 08/18/18 at 09:00; Stop 08/26/18 at 11:59; Status DC Metoprolol Tartrate (Lopressor) 50 mg BID PO Last administered on 08/26/18at 09: 38; Start 08/11/18 at 21:00; Stop 08/26/18 at 11:59; Status DC Simvastatin (Zocor) 20 mg HS PO Last administered on 08/25/18at 19:34; Start at 21:00; Stop 08/26/18 at 11:59; Status DC Sertraline HCl (Zoloft) 50 mg DAILY PO Last administered on 08/16/18at 08:03; Start 08/13/18 at 09:00; Stop 08/16/18 at 16:26; Status DC Levothyroxine Sodium (Synthroid) 175 mcg DAILY06 PO Last administered on at 06:01; Start 08/13/18 at 06:00; Stop 08/26/18 at 11:59; Status DC Levothyroxine Sodium (Synthroid) 50 mcg DAILY06 PO Last administered on at 06:01; Start 08/13/18 at 06:00; Stop 08/26/18 at 11:59; Status DC Rivaroxaban (Xarelto) 15 mg DAILYWSUP PO Last administered on 08/25/18at 17:30; Start 08/13/18 at 17:00; Stop 08/26/18 at 11:59; Status DC Vitamin D (Vitamin D3) 50,000 unit WEEKLY PO Last administered on 08/26/18at 09: 40; Start 08/19/18 at 09:00; Stop 08/26/18 at 11:59; Status DC Doxycycline Hyclate (Vibra-Tab) 100 mg BID PO Last administered on 08/23/18at 09 :43; Start 08/13/18 at 21:00; Stop 08/23/18 at 20:59; Status DC Furosemide (Lasix) 20 mg 1X ONCE PO Last administered on 08/13/18at 15:40; Start 08/13/18 at 15:15; Stop 08/13/18 at 15:19; Status DC Potassium Chloride (Klor-Con) 20 meq 1X ONCE PO Last administered on at 15:40; Start 08/13/18 at 15:15; Stop 08/13/18 at 15:19; Status DC Trazodone HCl (Desyrel) 50 mg PRN QHS PRN PO INSOMNIA, MAY REPEAT X1 Last administered on 08/22/18at 01:08; Start 08/13/18 at 18:15; Stop 08/26/18 at 11: 59; Status DC Lactobacillus Rhamnosus (Culturelle) 1 cap BID PO Last administered on at 09:39; Start 08/14/18 at 09:00; Stop 08/26/18 at 11:59; Status DC Sertraline HCl (Zoloft) 75 mg DAILY PO Last administered on 08/26/18at 09:39; Start 08/17/18 at 09:00; Stop 08/26/18 at 11:59; Status DC Active Scripts Active Reported Trazodone Hcl 50 Mg Tablet 50 Mg PO PRN QHS PRN Zoloft (Sertraline Hcl) 100 Mg Tablet 75 Mg PO DAILY Xarelto (Rivaroxaban) 10 Mg Tablet 15 Mg PO DAILYWSUP Zyprexa Zydis (Olanzapine) 5 Mg Tab.rapdis 2.5 Mg PO PRN Q2HR PRN Analgesic [place] (Methyl Salicylate/Menthol) 28 Gm Oint...g. 1 Applic TP PRN QID PRN Milk Of Magnesia (Magnesium Hydroxide) 2,400 Mg/10 Ml Oral.susp 2,400 Mg PO PRN QHS PRN Advanced Antacid Liquid (Mag Hydrox/Al Hydrox/Simeth) 355 Ml Oral.susp 15 Ml PO PRN AFTMEALHC PRN Culturelle (Lactobacillus Rhamnosus Gg) 1 Each Capsule 1 Each PO BID Vitamin D3 (Cholecalciferol (Vitamin D3)) 5,000 Unit Tablet 50,000 Unit PO WEEKLY Tylenol (Acetaminophen) 325 Mg Tablet 650 Mg PO PRN Q6HRS PRN Tramadol Hcl (Tramadol HCl) 50 Mg Tablet 50 Mg PO BID PRN Simvastatin 20 Mg Tablet 20 Mg PO HS Prednisone 20 Mg Tablet 20 Mg PO DAILY Prednisone 10 Mg Tablet 5 Mg PO DAILY Metoprolol Tartrate 50 Mg Tablet 50 Mg PO BID Methotrexate (Methotrexate Sodium) 2.5 Mg Tablet 12.5 Mg PO WEEKLY start date: 08/18/18 Losartan Potassium 50 Mg Tablet 50 Mg PO BID Levothyroxine Sodium 200 Mcg Tablet 200 Mcg PO DAILYAC Hydrochlorothiazide Tablet (Hydrochlorothiazide) 25 Mg Tablet 25 Mg PO DAILY Furosemide 20 Mg Tablet 20 Mg PO DAILY Albuterol Sulfate Neb Soln (Albuterol Sulfate) 2.5 Mg/3 Ml Vial.neb 2.5 Mg NEB QID I have reviewed the current psychotropics carefully including drug interactions. Risk benefit ratio favors no change other than as noted in my dictated progress note. Diagnosis: Problems: (1) MDD (major depressive disorder) (2) Anxiety disorder (3) Dementia, vascular, with depression (4) Impulse control disorder LAURA HOLGUIN MD Aug 27, 2018 19:28
--- NOTE | 2018-08-27 19:33 | PN ---
DATE: 08/25/2018 PSYCHIATRIC PROGRESS NOTE This late entry 08/25/2018 covers elements not covered in my initial note. SUBJECTIVE: I met with the patient in the evening. The patient slept 5-1/4 hours previous evening. Did well at night, compliant with medications. No behaviors. REVIEW OF SYSTEMS: Ambulation impaired with walker, hard of hearing. No CV, , pulmonary, eye system symptoms on review. MENTAL STATUS EXAM: Oriented to himself and situation. Speech coherent, high pitched, abstraction fair, computation impaired, language function intact, attention span short. Mood and affect less withdrawn. LABORATORY DATA: Reviewed. IMPRESSION: Unchanged from initial note. PLAN: No change from initial note with the tentative transition to [facility] 08/26/2018. MAN Jason HOLGUIN MD DR: JENI/laina JOB#: [id number] / [id number]
== END 2018-08-26 10:35 | DRG 57 ==
LOC: EDSEX 13:46 → GEROPSY 13:46
PROVIDERS: ADMIT Psychiatry & Neurology Psychiatry; ATTEND Psychiatry & Neurology Psychiatry
DX: G30.9 Alzheimer's disease, unspecified (principal); F33.3 Major depressive disorder, recurrent, severe with psychotic symptoms; E44.0 Moderate protein-calorie malnutrition; F02.81 Dementia in other diseases classified elsewhere, unspecified severity, with behavioral disturbance; F01.51 Vascular dementia, unspecified severity, with behavioral disturbance; F05 Delirium due to known physiological condition; J96.10 Chronic respiratory failure, unspecified whether with hypoxia or hypercapnia; D86.9 Sarcoidosis, unspecified; E03.9 Hypothyroidism, unspecified; E78.5 Hyperlipidemia, unspecified; Z96.651 Presence of right artificial knee joint; Z96.641 Presence of right artificial hip joint; F41.9 Anxiety disorder, unspecified; E55.9 Vitamin D deficiency, unspecified; F33.41 Major depressive disorder, recurrent, in partial remission; Z66 Do not resuscitate; G47.33 Obstructive sleep apnea (adult) (pediatric); I10 Essential (primary) hypertension; F63.9 Impulse disorder, unspecified; H91.90 Unspecified hearing loss, unspecified ear; I48.91 Unspecified atrial fibrillation; J44.9 Chronic obstructive pulmonary disease, unspecified; Z68.32 Body mass index [BMI] 32.0-32.9, adult; Z79.899 Other long term (current) drug therapy; Z79.01 Long term (current) use of anticoagulants
CPT/HCPCS: 36415; 71045; 71046; 80048; 80053; 80061; 81001; 82306; 82550; 82607; 83036; 83540; 83550; 83735; 83880; 84436; 84443; 84480; 84484; 85025; 86592; 93005; 93306; 94640; J7512; J7613; J8610; 97110; 97116; 97530; 97535